=== PATIENT | female | born 1965 | race Caucasian/White ===

== ENCOUNTER 2020-08-11 05:17 | Day surgery (SDC) | payer OTHER ==
[2020-08-10 10:36] VITALS: BMI 36.2
--- OUTSIDE RECORDS SUMMARY | 2020-08-11 05:26 | XMS ---
:1965 Author Organization [facility] Care Team Providers Name Role Phone Leni Meeks MD Unavailable Unavailable Yanna Meeks MD Unavailable Unavailable Yanna Meeks MD Unavailable Unavailable Yanna Meeks MD Unavailable Unavailable Yanna Meeks MD Unavailable Unavailable Yanna Meeks MD Unavailable Unavailable MD Divya Unavailable Unavailable Tellus Unavailable Unavailable Mihaleva Unavailable [email or web address] Mihaleva Unavailable [email or web address] Mihaleva Unavailable [email or web address] Mihaleva Unavailable [email or web address] RYLAND GIORDANO Unavailable RYLAND GIORDANO Unavailable Ruvo Unavailable Unavailable Uriel Unavailable Unavailable Kaniefski Unavailable Unavailable DONAL, PROJECT SCHEDULER Unavailable ODNAL, PROJECT SCHEDULER Unavailable DONAL, PROJECT SCHEDULER Unavailable DONAL, PROJECT SCHEDULER Unavailable DONAL, PROJECT SCHEDULER Unavailable DONAL, PROJECT SCHEDULER Unavailable MD Ryan Unavailable Unavailable Sicular Unavailable Unavailable Latoya, MD Unavailable Unavailable Latoya, MD Unavailable Unavailable Latoya, MD Unavailable Unavailable Latoya, MD Unavailable Unavailable Latoya, MD Unavailable Unavailable Latoya, MD Unavailable Unavailable Latoya, MD Unavailable Unavailable Latoya, MD Unavailable Unavailable Latoya, MD Unavailable Unavailable Latoya, MD Unavailable Unavailable Latoya, MD Unavailable Unavailable Latoya, MD Unavailable Unavailable Latoya, MD Unavailable Unavailable Latoya, MD Unavailable Unavailable Latoya, MD Unavailable Unavailable Re-disclosure Warning The records that you are about to access may contain information from federally- assisted alcohol or drug abuse programs. If such information is present, then the following federally mandated warning applies: This information has been disclosed to you from records protected by federal confidentiality rules (42 CFR part 2). The federal rules prohibit you from making any further disclosure of this information unless further disclosure is expressly permitted by the written consent of the person to whom it pertains or as otherwise permitted by 42 CFR part 2. A general authorization for the release of medical or other information is NOT sufficient for this purpose. The Federal rules restrict any use of the information to criminally investigate or prosecute any alcohol or drug abuse patient.The records that you are about to access may contain highly sensitive health information, the redisclosure of which is protected by Article 27-F of the [facility] Public Health law. If you continue you may haveaccess to information: Regarding HIV / AIDS; Provided by facilities licensed or operated by the [facility] Office of Mental Health; or Provided by the [facility] Office for People With Developmental Disabilities. If such information is present, then the following [facility] mandated warning applies: This information has been disclosed to you from confidential records which are protected by state law. State law prohibits you from making any further disclosure of this information without the specific written consent of the person to whom it pertains, or as otherwise permitted by law. Any unauthorized further disclosure in violation of state law may result in a fine or long term sentence or both. A general authorization for the release of medical or other information is NOT sufficient authorization for further disclosure. Allergies and Adverse Reactions Type Description Substance Reaction Status Data Source(s ) Allergy to No Known Allergies No known MIS SMITH ([facility] substance allergies [facility] [place] ) Allergy to No Known Allergies No known GREENW AY ([facility] substance allergies [facility] ([facility] ) Encounters Encounter Providers Location Date Indications Data Source(s ) Outpatient Attender: MD GURMEET LR 09/15/2019 [facility] [place] 02:29:00 PM Hosp[facility] l EDT - 09/15/2019 11:59:00 PM EDT Patient discharged. S Attender: MD Caden MontesAMB SURG 08/23[facility] 11:15:00 AM EDT Patient discharged. Outpatient Attender: MD GURMEET LR 08/18/2019 02:38:00 [facility] PM EDT - 08/18/2019 Hospital 11:59:00 PM EDT Patient discharged. S Attender: MD Major LENZ MV 07/27/2019 03:51:05 [facility] - 08[facility]/2019 [facility] 09:55:00 AM EDT Patient discharged. Outpatient Attender: MD GURMEET LR 07/21/2019 02:56:00 [facility] PM EDT - 07/21/2019 Hospital 11:59:00 PM EDT Patient discharged. Outpatient Attender: MD GURMEET LR 07/13/2019 03:31:06 [facility] PM EDT - 07/14/2019 Hospital 11:59:00 PM EDT Patient discharged. Outpatient Attender: MD Major LINARESV 07/08/2019 03:24:00 [facility] PM EDT - 07/08/2019 Hospi hector 11:59:00 PM EDT Patient discharged. Outpatient Attender: Marybeth LR 07/08/2019 01:53:00 PM [facility] MD EDT - 07/08/2019 Hospita l 11:59:00 PM EDT Admission cancelled. Disregard status an d admitted date. Emergency Attender: Isaias RAND 07/05/2019 RECTAL BLEEDING, Yamileth Trevino 12:18:00 PM EDT - BACK PAIN [facility] 07/05/2019 03:26:00 PM EDT RECTAL BLEEDING, BACK PAIN Patient discharged. Outpatient Attender: Marybeth Bahena-MED CL 06/25/2019 03:13:00 PM [facility] MD EDT - 06/25/2019 Hospita l 11:59:00 PM EDT Patient discharged. Outpatient Attender: Leni Bahena-OBGYN CL 06/14/2019 03:13:00 [facility] - 06/14/2019 Hosp ital 11:59:00 PM EDT Patient discharged. Outpatient -GI CL 05/14/2019 11:39:35 AM EDT [facility] Admission cancelled. Disregard status an d admitted date. Emergency Attender: Terrence Bahena-EMERG 05/05/2019 R FOOT SWOLLEN [facility] 05:51:00 PM EDT - [facility] 05/05/2019 08:30:00 PM EDT R FOOT SWOLLEN Patient discharged. Outpatient Attender: Marybeth Bahena-RAD DEPT 04/01/2019 HUSAM Klein MD 03:31:00 PM EDT [facility] Outpatient Attender: Marybeth Bahena-MED CL 03/26/2019 HUSAM Klein MD 03:30:00 PM EDT [facility] 03/26/2019 11:59:00 PM EDT Emergency Attender: Brannon 5T-EMERG 03/21/2019 LOWER BACK [facility] - Kashif Soni 12:24:00 PM EDT - MUSCLE SPASM [facility] 03/21/2019 SINCE FRIDAY 01:28:00 PM EDT LOWER BACK MUSCLE SPASM SINCE FRIDAY Outpatient Attender: Marybeth Bahena-LAB 03/20/2019 HUSAM Klein MD 12:31:00 PM EDT - [facility] 03/20/2019 11:59:00 PM EDT Outpatient Attender: Marybeth Bahena-MED CL 03/12/2019 HUSAM Klein MD 03:21:00 PM EDT [facility] 03/12/2019 11:59:00 PM EDT Emergency Attender: Matilde 5T-EMERG 01/07/2019 FLU-LIKE SHAUNAS - Mo unt Sicular 05:35:00 PM EST - SYMPTOMS [facility] 01/07/2019 09:42:00 PM EST FLU-LIKE SYMPTOMS Outpatient<td Attender: 12/18/2018 LUQU[place]O ID="encounterTypeDescriptionID0">*OUTREACH*</td><td>BLANCA lui 11:07:00 AM ([facility] COLLIN GIORDANO</td><td> Collin EST - [facility] </td><td>12/18/2018</td><td></td> 12/18/2018 Health 11:59:00 PM Center) EST Outpatient<td ID="encounterTypeDescriptionID1">*No Attender: 12/10/2018 [place] Show*</td><td>JIGNESH MARCELINO MD</td><td>[place] JIGNESH o 03:16:00 PM ([facility]</td><td>12/10/2018</td><td></td> RYLAND GIORDANO u EST - [facility] n 12/10/2018 Health t 11:59:00 PM Center) V EST e r n o n N e i g h b o r h o o d H e a l t h C e n t e r Outpatient<td ID="encounterTypeDescriptionID0">COMPLETE Attender: 12/04/2018 [place] PHYSICAL EXAM</td><td>BLANCA POLANCO MD</td><td>[facility] Fernanda [facility] o 09:15:00 AM ([facility] u [facility]</td><td>12/04/2018</td><td></td> n [facility] Health t 11:59:00 PM Center) V EST e r n o n N e i g h b o r h o o d H e a l t h C e n t e r Emergency Attender: 5 02/04/2018 S S - [facility] Senior T 01:57:00 AM Will Delgado EDT - O Hospital E 02/04/2018 [facility] 02:07:00 PM A E EDT C R H G P A I N STOMACH PAIN Outpatient<td Attender: [place] 07/16/2013 Knee YANDEL ID="encounterTypeDescriptionID1">WALKINS</td><td>BETSY MEYER [facility] 09:53:00 AM SprainKnee ([facility] DONAL, PROJECT SCHEDULER</td><td>Health System Health PEN DERGAST, [facility] EDT - Sprain [facility]</td><td>07/16/2013</td><td><content PROJECT SCHEDULER 06/25 Health ID="encounterDiagnosisID1-0">Knee Sprain</content></td> 10:47:02 AM [place]) EDT Knee Sprain Knee Sprain Immunizations Vaccine Date Status Description Data Source(s) TB Skin 12/04/2018 completed PPD 1 12/04/2018 Left Active Arin [facility] test is 12:14:00 PM TB Lower (Administered) Nei [facility] ([place] not EST TST Forearm [facility] vaccine. [facility]) Tdap 03/30/2016 completed Tdap On: 30-Mar-2016 [facility] 12:00:00 AM EDT Lot #: [id number], [place] Medications Medication Brand Start Product Dose Route Administrative Pharmacy [facility] Indications Reaction Description Data Name Date Form Instructions Instructions Source(s) medroxyprog medrox [id number] complet Prov era [facility] esterone [id number] {tab( ed Health acetate 10 STERon 04:08: s)} Syste m MG Oral e 10 59 PM Tablet mg EDT medroxyPROG oral ESTERone 10 tablet mg oral tablet Do not take this drug if you are pregnan t.It is very important that you take or use this exactly as directed. Do not skip d oses or discontinue unless directed by your doctor.Take with food or milk. medroxyprogesterone medroxyPROGESTERone 07/14/2019 2 [id number] completed Provera [facility] acetate 10 MG Oral 10 mg oral tablet 03:20:38 PM {tab(s)} Health Tablet EDT System medroxyPROGESTERone 10 mg oral tablet Do not take this drug if you are pregnan t.It is very important that you take or use this exactly as directed. Do not skip d oses or discontinue unless directed by your doctor.Take with food or milk. POLYETHYLENE GoLYTELY oral 07/08/2019 4000 [id number] completed GoLYTELY [facility] GLYCOL 3350 59 powder for 04:34:23 PM mL Health MG/ML / reconstitution EDT Sy stem Potassium Chloride 0.01 MEQ/ML / Sodium Bicarbonate 0.02 MEQ/ML / Sodium Chloride 0.025 MEQ/ML / sodium sulfate 0.04 MEQ/ML Oral Solution GoLYTELY oral powder for reconstitution medroxyprogeste Provera 10 mg 07/08/2019 T 2 ORAL completed [facility] negro acetate 10 oral tablet 03:39:58 PM A {tab( Health MG Oral Tablet EDT B s)} Syste m [Provera] L Provera 10 mg E oral tablet T Do not take this drug if you are pregnan t.It is very important that you take or use this exactly as directed. Do not skip d oses or discontinue unless directed by your doctor.Take with food or milk. medroxyprogesterone Provera 07/08/2019 TABLET 2 ORAL completed [facility] acetate 10 MG Oral 10 mg 03:39:58 PM {tab(s)} Health Tablet [Provera] oral EDT Sys tem Provera 10 mg oral tablet tablet Do not take this drug if you are pregnan t.It is very important that you take or use this exactly as directed. Do not skip d oses or discontinue unless directed by your doctor.Take with food or milk. medroxyprogesterone Provera 07/08/2019 2 [id number] active Provera [facility] acetate 10 MG Oral 10 mg 03:39:58 PM {tab(s)} Health Tablet [Provera] oral EDT Sys tem Provera 10 mg oral tablet tablet Do not take this drug if you are pregnan t.It is very important that you take or use this exactly as directed. Do not skip d oses or discontinue unless directed by your doctor.Take with food or milk. Cyclobenzaprine cyclobenzaprine 07/08/2019 1 [id number] completed Cyclobenzaprine [facility] hydrochloride 10 10 mg oral 03:37:40 PM {tab(s)} Hydrochloride Health MG Oral Tablet tablet EDT Sys tem cyclobenzaprine 10 mg oral tablet 8 HR Tylenol 8 Hour 07/08/2019 2 [id number] completed Tylenol 8 Hour [facility] Acetaminophen 650 mg oral 03:36:59 PM {tab(s)} [facility] 650 MG Extended tablet, extended EDT System Release Oral release Tablet [Tylenol] Tylenol 8 Hour 650 mg oral tablet, extended release This product contains acetaminophen. Do not use with any other product containing acetaminophen to prevent possible liver damage. medroxyprogesterone Provera 07/05/2019 TABLET 1 ORAL completed [facility] acetate 10 MG Oral 10 mg 02:54:42 PM {tab(s)} Health Tablet [Provera] oral EDT Sys tem Provera 10 mg oral tablet tablet Do not take this drug if you are pregnan t.It is very important that you take or use this exactly as directed. Do not skip d oses or discontinue unless directed by your doctor.Take with food or milk. medroxyprogesterone Provera 06/14/2019 TABLET 2 ORAL completed [facility] acetate 10 MG Oral 10 mg 04:02:27 PM {tab(s)} Health Tablet [Provera] oral EDT Sys tem Provera 10 mg oral tablet tablet Do not take this drug if you are pregnan t.It is very important that you take or use this exactly as directed. Do not skip d oses or discontinue unless directed by your doctor.Take with food or milk. Naproxen naproxen 03/21/2019 1 {tab(s)} [id number] completed Naproxen [facility] 375 MG 375 mg 12:57:02 PM [facility] Delayed oral EDT Coated System Release delayed Oral release Tablet tablet naproxen 375 mg oral delayed release tablet Check with your doctor before becoming p regnant.It is very important that you take or use this exactly as directed. Do not sk ip doses or discontinue unless directed by your doctor.May cause drowsiness or dizz iness.Obtain medical advice before taking any non-prescription drugs as some may affec t the action of this medication.Swallow whole. Do not crush.Take with food or m ilk. Methocarbamol methocarbamol 03/21/2019 1 [id number] completed Methocarbamol [facility] 500 MG Oral 500 mg oral 12:56:01 PM {tab(s)} Health Tablet tablet EDT System methocarbamol 500 mg oral tablet May cause drowsiness. Alcohol may inten sify this effect. Use care when operating dangerous machinery. Naproxen Naprosyn 03/21/2019 1 [id number] aborted Naprosyn; 1 tab(s) orally every 12 hours, As Needed -PRN MUSCLE SPASM Ordered: 21-Mar-2019 Start: 21-Mar-2019 End: 25-Mar-2019 [facility] Naprosyn 12:53:02 PM {tab(s)} Quant ity: 10 BurrisPoly villalpando Status: Discontinued Health EDT Refills: 0 System Methocarbamol methocarbamol 03/21/2019 1 [id number] aborted Methocarbamol [facility] 500 MG Oral 500 mg oral 12:51:08 PM {tab(s)} Health Tablet tablet EDT System methocarbamol 500 mg oral tablet May cause drowsiness. Alcohol may inten sify this effect. Use care when operating dangerous machinery. benzonatate benzonatate 01/07/2019 1 [id number] completed Benzonatate [facility] 100 MG Oral 100 mg oral 09:29:46 PM {cap(s)} Health Capsule capsule EST System benzonatate 100 mg oral capsule May cause drowsiness. Alcohol may inten sify this effect. Use care when operating dangerous machinery.Swallow whole. Do n ot crush. Ibuprofen IBU 800 01/07/2019 1 {tab(s)} [id number] aborted IBU [facility] 800 MG Oral mg oral 09:29:31 PM Health Tablet [Ibu] tablet EST Syste m IBU 800 mg oral tablet Do not take this drug if you are pregnan t.It is very important that you take or use this exactly as directed. Do not skip d oses or discontinue unless directed by your doctor.May cause drowsiness or dizziness .Obtain medical advice before taking any non-prescription drugs as some may affec t the action of this medication.Take with food or milk. Oseltamivir oseltamivir 01/07/2019 1 [id number] completed Tamiflu [facility] 75 MG Oral 75 mg oral 09:29:11 PM {cap(s)} Health Capsule capsule EST System oseltamivir 75 mg oral capsule Check with your doctor before becoming p regnant.Finish all this medication unless otherwise directed by prescriber. Methocarbamol methocarbamol 09/21/2018 2 [id number] completed Methocarbamol [facility] 500 MG Oral 500 mg oral 11:02:22 PM {tab(s)} Health Tablet tablet EDT System methocarbamol 500 mg oral tablet May cause drowsiness. Alcohol may inten sify this effect. Use care when operating dangerous machinery. Naproxen naproxen 09/21/2018 1 {tab(s)} [id number] completed Naproxen [facility] 500 MG 500 mg 11:02:02 PM Heal th Oral oral EDT System Tablet tablet naproxen 500 mg oral tablet Check with your doctor before becoming p regnant.May cause drowsiness or dizziness.Obtain medical advice before t aking any non-prescription drugs as some may affect the action of this medication.Sam e with food or milk. Metoclopramide metoclopramide 02/04/2018 1 [id number] complet ed Metoclopramide [facility] 10 MG Oral 10 mg oral 01:40:22 PM {tab(s)} Hydrochloride Health Tablet tablet EDT System metoclopramide 10 mg oral tablet It is very important that you take or us e this exactly as directed. Do not skip doses or discontinue unless directed by your doctor.May cause drowsiness. Alcohol may intensify this effect. Use care whe n operating dangerous machinery.Take medication on an empty stomach 1 hour be fore or 2 to 3 hours after a meal unless otherwise directed by your doctor. Ranitidine raNITIdine 02/04/2018 1 [id number] completed Ranitidine [facility] 150 MG Oral 150 mg oral 01:39:25 PM {tab(s)} Hydrochloride Health Tablet tablet EDT System raNITIdine 150 mg oral tablet It is very important that you take or us e this exactly as directed. Do not skip doses or discontinue unless directed by your doctor.Obtain medical advice before taking any non-prescription drugs as jhoana e may affect the action of this medication. Amoxicillin 875 MG / amoxicillin-clavulanate 10/29/2016 1 [id number] completed Amoxicillin-Clavulanate [facility] Clavulanate 125 MG Oral 875 mg-125 mg oral 07:02:38 PM {cap(s)} Health Tablet tablet EST System amoxicillin-clavulanate 875 mg-125 mg oral tablet Finish all this medication unless otherw ise directed by prescriber.Take with food or milk. Ciprofloxacin 3 Ciprodex 10/29/2016 4 [id number] completed Ciprodex [facility] MG/ML / 0.3%-0.1% 07:01:49 PM {gtt} Health Dexamethasone 1 otic EST Syst em MG/ML Otic suspension Suspension [Ciprodex] Ciprodex 0.3%-0.1% otic suspension For the ear.Shake well before use. Cyclobenzaprine cyclobenzaprine 09/17/2016 1 [id number] completed Cyclobenzaprine [facility] hydrochloride 10 10 mg oral 06:13:55 PM {tab(s)} Hydrochloride Health MG Oral Tablet tablet EDT Sys tem cyclobenzaprine 10 mg oral tablet May cause drowsiness. Alcohol may inten sify this effect. Use care when operating dangerous machinery.Obtain medical advic e before taking any non-prescription drugs as some may affect the action of this medic ation. Ibuprofen IBU 600 09/17/2016 1 {tab(s)} [id number] completed IBU [facility] 600 MG Oral mg oral 06:13:32 PM Health Tablet [Ibu] tablet EDT Syste m IBU 600 mg oral tablet Do not take this drug if you are pregnan t.It is very important that you take or use this exactly as directed. Do not skip d oses or discontinue unless directed by your doctor.May cause drowsiness or dizziness .Obtain medical advice before taking any non-prescription drugs as some may affec t the action of this medication.Take with food or milk. POLYETHYLENE [id number] oral 09/17/2016 238 [id number] completed [id number] [facility] GLYCOL 3350 142 powder for 02:18:00 PM g Health MG/ML Oral reconstitution EDT System Solution [id number] oral powder for reconstitution Dilute this medication with liquid befor e administration.It is very important that you take or use this exactly as directed . Do not skip doses or discontinue unless directed by your doctor. Naproxen naproxen 07/12/2016 1 {tab(s)} [id number] completed Naproxen [facility] 250 MG 250 mg 02:44:20 PM Heal th Oral oral EDT System Tablet tablet naproxen 250 mg oral tablet Check with your doctor before becoming p regnant.It is very important that you take or use this exactly as directed. Do not sk ip doses or discontinue unless directed by your doctor.May cause drowsiness or dizz iness.Obtain medical advice before taking any non-prescription drugs as some may affec t the action of this medication.Take with food or milk. Ibuprofen IBU 600 06/19/2016 1 {tab(s)} [id number] completed IBU [facility] 600 MG Oral mg oral 07:28:10 PM Health Tablet [Ibu] tablet EDT Syste m IBU 600 mg oral tablet Do not take this drug if you are pregnan t.It is very important that you take or use this exactly as directed. Do not skip d oses or discontinue unless directed by your doctor.May cause drowsiness or dizziness .Obtain medical advice before taking any non-prescription drugs as some may affec t the action of this medication.Take with food or milk. Amoxicillin 500 MG / amoxicillin-clavulanate 06/19/2016 1 [id number] completed Amoxicillin-Clavulanate [facility] Clavulanate 125 MG Oral 500 mg-125 mg oral 07:26:08 PM {tab(s)} Health Tablet tablet EDT System amoxicillin-clavulanate 500 mg-125 mg oral tablet Finish all this medication unless otherw ise directed by prescriber.Take with food or milk. Sulfamethoxazole SMZ-TMP 03/30/2016 1 [id number] complet ed SMZ-TMP DS 800 mg- 160 mg oral tablet; 1 tab(s) orally 2 times a day Ordered: 30-Mar-2016 Star t: 30-Mar-2016 End: 09-Apr-2016 [facility] 800 MG / DS 800 04:53:12 PM {tab(s)} Jason ntity: 20 [place] Winn Status: No Longer Active Health Trimethoprim 160 mg-160 EDT Refill s: 0 Generic Substitution Allowed System MG Oral Tablet mg oral SMZ-TMP DS 800 tablet mg-160 mg oral tablet Avoid prolonged or excessive exposure to direct and/or artificial sunlight while taking this medication.Finish all this m edication unless otherwise directed by prescriber.Medication should be taken wi th plenty of water. Cephalexin cephalexin 03/30/2016 1 [id number] completed Cephalexin [facility] 500 MG Oral 500 mg oral 04:52:45 PM {cap(s)} Monohydrate Health Capsule capsule EDT System cephalexin 500 mg oral capsule Finish all this medication unless otherw ise directed by prescriber. Loperamide loperamide 03/12/2016 1 [id number] completed Imodium [facility] Hydrochloride 2 mg oral 04:08:18 PM {tab(s)} A-D Health 2 MG Oral tablet EDT System Tablet loperamide 2 mg oral tablet It is very important that you take or us e this exactly as directed. Do not skip doses or discontinue unless directed by your doctor.May cause drowsiness. Alcohol may intensify this effect. Use care whe n operating dangerous machinery.Obtain medical advice before taking any non-pre scription drugs as some may affect the action of this medication. Microgestin [id number] 03/05/2016 1 [id number] completed Microgestin [facility] oral 02:47:36 PM {tab(s)} 04/22 Health tablet EDT System Do not take this drug if you are pregnan t.It is very important that you take or use this exactly as directed. Do not skip d oses or discontinue unless directed by your doctor.Other drugs may decrease the effe ct of this prescription. Contact your physician for further advice. moxifloxacin moxifloxacin 04/02/2015 1 [id number] completed Avelox [facility] 400 MG Oral 400 mg oral 12:55:22 PM {tab(s)} Health Tablet tablet EDT System moxifloxacin 400 mg oral tablet Do not take dairy products, antacids, or iron preparations within one hour of this medication.Finish all this medication un less otherwise directed by prescriber.May cause drowsiness or dizziness.Obtain med ical advice before taking any non-prescription drugs as some may affec t the action of this medication. Acetaminophen 325 MG / acetaminophen-oxyCODONE 04/02/2015 1 C 13383 completed Acetaminophen-OxyCODONE [facility] Oxycodone Hydrochloride 325 mg-5 mg oral tablet 12:00:00 AM {tab(s)} Hydrochloride Health 5 MG Oral Tablet EDT Sys tem acetaminophen-oxyCODONE 325 mg-5 mg oral tablet Ciprofloxacin 500 MG ciprofloxacin 500 mg 01/14/2015 1 [id number] completed Ciprofloxacin [facility] Oral Tablet oral tablet 01:16:00 PM {tab(s)} Hydrochloride Health ciprofloxacin 500 mg EST System oral tablet POLYETHYLENE GLYCOL 3350 polyethylene glycol 3350 01/14/2015 400 0 mL [id number] completed Colyte with Flavor Packs [facility] 59 MG/ML / Potassium with electrolytes oral 12:00:00 AM Health Chloride 0.01 MEQ/ML / powder for EST System Sodium Bicarbonate 0.02 reconstitution MEQ/ML / Sodium Chloride 0.025 MEQ/ML / sodium sulfate 0.04 MEQ/ML Oral Solution polyethylene glycol 3350 with electrolytes oral powder for reconstitution Acetaminophen 325 MG / acetaminophen-oxyCODONE 06/28/2014 1 C 07389 completed Acetaminophen-OxyCODONE [facility] Oxycodone Hydrochloride 325 mg-5 mg oral tablet 09:13:18 PM {tab(s)} Hydrochloride Health 5 MG Oral Tablet EDT Sys tem acetaminophen-oxyCODONE 325 mg-5 mg oral tablet Caution federal law prohibits the transf er of this drug to any person other than the person for whom it was prescribed.May ca use drowsiness. Alcohol may intensify this effect. Use care when operating [employer] machinery.This prescription cannot be refilled.This product contains acetamino phen. Do not use with any other product containing acetaminophen to prevent poss ible liver damage.Using more of this medication than prescribed may cause ser ious breathing problems. Naproxen naproxen 06/26/2014 1 [id number] completed Naproxen [facility] 500 MG Oral 500 mg 10:09:55 PM {tab(s)} Health Tablet tablet EDT System naproxen 500 mg tablet Cyclobenzap cyclobenzap 06/26/2014 1 [id number] completed Cyclobenza [facility] rine rine 10 mg 10:09:47 PM {tab(s)} [facility] hydrochlori oral tablet EDT Hydroc hlor System de 10 MG solo Oral Tablet cyclobenzap rine 10 mg oral tablet May cause drowsiness. Alcohol may inten sify this effect. Use care when operating dangerous machinery.Obtain medical advic e before taking any non-prescription drugs as some may affect the action of this medic ation. Naproxen naproxen 07/05/2013 1 {tab(s)} U68394 completed Naproxen [facility] 500 MG 500 mg 10:18:22 PM [facility]al th Oral tablet EDT System Tablet naproxen 500 mg tablet Motrin 0 L84010 completed Motrin; or ally Ordered: 26-Jun-2014 Status: No Longer Active [facility] Quantity: 0 Fantrotter Refills: 0 System Ondansetron 4 Zofran 1 R17122 completed Zofran ODT 4 mg oral tablet, disintegrating; 1 tab(s) orally 3 times a day Ordered: 11-Aug-2015 Status: No Longer Active [facility] MG ODT 4 {t Quantity: 0 [facility] Dis[facility] mg oral ab Refills: 0 System g Oral Tablet tablet, (s [Zofran] disinte )} Zofran ODT 4 grating mg oral tablet, disintegratin g Multivitamin Multiple 1 {tab(s)} Z84422 active Multivitamin [facility] preparation Vitamins Heal th Multiple oral System Vitamins oral tablet tablet calcium 0 V86903 active calc ium carbonate-magnesium hydroxide 550 mg-125 mg oral capsule; orally once a day Ordered: 11-Aug-2019 [facility] carbonate-magnesium Quant ity: 0 [employer] [facility] hydroxide 550 mg-125 Refi lls: 0 System mg oral capsule 12 HR Oxycodone O 0 Q55847 complet OxyCONTIN 10 mg oral tablet, extended release; orally Ordered: 02-Feb-2015 Status: No Longer Active [facility] Hydrochloride 10 MG x ed Quant ity: 0 [employer] Extended Release y Refills: 0 System Oral Tablet C [Oxycontin] O OxyCONTIN 10 mg oral N tablet, extended T release I N 1 0 m g o r a l t a b l e t , e x t e n d e d r e l e a s e No Medications drug or active No Me dications YANDEL ([place] Taken medication Taken [facility]) Aspirin 81 MG aspirin 81 mg 1 C38 active Halfprin [facility] Oral Tablet oral tablet {tab 288 H ealth System aspirin 81 mg (s)} oral tablet Aspirin 81 MG Aspir-Low 81 1 C38 aborted Aspir-Low [facility] Delayed Release mg oral {tab 288 H ealth System Oral Tablet delayed (s)} [Aspir-Low] release tablet Aspir-Low 81 mg oral delayed release tablet No Medications drug or active No Me dications YANDEL ([place] Taken medication Taken [facility]) Insurance Providers Payer Policy type / Policy ID Covered Covered republican's Policy Plan name Coverage type republican ID relationship to Paredes Information paredes SHRUTI [id number] CIGNA PPO Commercial [id number] 1 [id number] Cigna PPO Commercial [id number] Cigna PPO Commercial [id number] 1 [facility] [id number] Blue Blue Cross [id number] Cross PPO Self Pay Self Pay 1 Cigna PPO Commercial [id number] 1 [id number] Cigna PPO Commercial [id number] 1 [id number] CIGNA Commercial [id number] 1 [id number] CIGNA PPO Commercial [id number] Problems, Conditions, and Diagnoses Code Display Name Description Problem Type Effective Data Sour ce(s) Dates [id number] Leukocytosis Leukocytosis Problem 12/18/2018 YANDEL ( [place] (disorder) 12:00:00 AM [facility]) [id number] Hematuria syndrome Hematuria Problem 12/18/2018 APALACHICOLAIrving SMITH ([place] (disorder) 12:00:00 AM [facility]) [id number] Obesity (disorder) Obesity Problem 12/04/2018 APALACHICOLAIrving AY ([place] 12:00:00 AM [facility]) [id number] Malignant tumor of Colon Cancer Problem 12/04/2018 MIHIRSimon SHINLUIS ([facility] large intestine 12:00:00 AM [place] (disorder) [facility]) [id number] Obesity (disorder) Obesity Problem 12/04/2018 [facility] AY ([place] 12:00:00 AM [facility]) [id number] Malignant tumor of Colon Cancer Problem 12/04/2018 GREE NWLUIS ([facility] large intestine 12:00:00 AM [place] (disorder) [facility]) H66.91 Otitis of right Otitis of right 41923-7 10/29/2016 [facility] ear ear 12:00:00 AM Health System EST C18.9 Colon cancer Colon cancer 47204-6 03/30/2016 [facility] 12:00:00 AM [facility] System EDT Z98.51 [place] [address]-5 03/30/2016 [facility] bilateral ligation bilateral ligation 12:00:00 AM Health System of fallopian tubes of fallopian tubes EDT 558.9 Acute Acute 77296-7 01/12/2015 [facility] gastroenteritis gastroenteritis 12:00:00 AM [facility] System EST Z98.51 Tubal ligation History of Diagnosis 10/15/2019 [facility] - Moun t status bilateral ligation 03:05:33 PM [facility] of fallopian tubes EST H66.91 Otitis media, Otitis of right Diagnosis 10/15/2019 S - [place] unspecified, right ear 03:05:33 PM [facility] ear EST C18.9 Malignant neoplasm Colon cancer Diagnosis 10/15/2019 [facility] [place] [facility], [facility] Z87.898 Personal history No post-op Diagnosis 09/15/2019 S - [place] of other specified complications 02:29:00 PM [facility] conditions EDT Z85.038 Personal history History of other Diagnosis 09/02/2019 [place] - [place] of other malignant malignant neoplasm 06:58:00 AM [facility] neoplasm of large of large intestine EDT intestine 30226 Hysteroscopy Hysteroscopy Diagnosis 09/02/2019 [facility] - Moun t 06:58:00 AM [facility] EDT N92.0 Excessive and Excessive and Diagnosis 09/02/2019 S - [place] [facility] frequent frequent 06:58:00 AM [facility] menstruation with menstruation EDT regular cycle N85.00 Endometrial Endometrial Diagnosis 09/02/2019 [facility] - [facility] hyperplasia, hyperplasia 06:58:00 AM [facility] pital unspecified EDT K64.9 Unspecified Hemorrhoids Diagnosis 08/11/2019 [facility] - [facility] hemorrhoids 06:40:00 AM [facility] EDT K63.5 Polyp of colon Polyp of colon Diagnosis 08/11/2019 [facility] - [place] 06:40:00 AM [facility] al EDT K57.30 Diverticulosis of Diverticulosis of Diagnosis 08/11/2019 S - [facility] large intestine large intestine 06:40:00 AM [facility] without without EDT perforation or perforation or abscess without abscess without bleeding bleeding 84528 Colonoscopy Colonoscopy Diagnosis 08/11/2019 [facility] - [place] 06:40:[facility] N95.0 Postmenopausal Postmenopausal Diagnosis 07/14/2019 S - [facility] bleeding bleeding 02:39:00 PM [facility] al EDT RECTAL BLEEDING, RECTAL BLEEDING, Diagnosis 07/05/2019 S - [facility] BACK PAIN BACK PAIN 12:18:00 PM [facility] al EDT N93.8 Other specified Dysfunctional Diagnosis 07/05/2019 [facility] - [facility] abnormal uterine uterine bleeding 12:18:00 PM [facility] and vaginal EDT bleeding D72.829 Elevated white Leukocytosis Diagnosis 07/05/2019 [facility] - [place] unt blood cell count, 12:18:00 PM [facility] unspecified EDT N93.9 Abnormal uterine Vaginal bleeding Diagnosis 07/05/2019 [place] - [place] and vaginal 12:18:00 PM [facility] bleeding, EDT unspecified W22.8XXA Striking against Striking against Diagnosis 05/05/2019 [place] - [place] or struck by other or struck by other 05:51:00 PM [facility] objects, initial objects, initial EDT encounter encounter R FOOT SWOLLEN R FOOT SWOLLEN Diagnosis 05/05/2019 S - [place] 05:51:00 PM [facility] EDT Y92.830 [address] park as the Public park as Diagnosis 05/05/2019 S - [facility] place of place of 05:51:00 PM [facility] occurrence of the occurrence of EDT external cause external cause Y99.8 Other external Other external Diagnosis 05/05/2019 [facility] cause status cause of injury or 05:51:00 PM [facility] poisoning EDT S90.31XA Contusion of right Contusion of right Diagnosis 9 S - [place] foot, initial foot 05:51:00 PM [facility] pital encounter EDT Y93.89 Activity, other Other activity Diagnosis 05/05/2019 [facility] - [facility] specified 05:51:00 PM [facility] al EDT E11.9 Type 2 diabetes Diabetes mellitus Diagnosis 03/26/2019 S - [facility] mellitus without 03:30:00 PM [facility] complications EDT M62.830 Muscle spasm of Spasm of back Diagnosis 03/21/2019 [facility] - [facility] back muscles 12:24:00 PM [facility] al EDT LOWER BACK MUSCLE LOWER BACK MUSCLE Diagnosis 03/21/2019 [facility] - [facility] SPASM SINCE SPASM SINCE 12:24:00 PM [facility] Friday EDT M54.9 Dorsalgia, Back pain Diagnosis 03/21/2019 [place] - [place] unspecified 12:24:00 PM Health System hector EDT Z00.01 Encounter for Encounter for Diagnosis 03/20/2019 S - [place] general adult general adult 12:00:00 AM [facility] medical medical EDT examination with examination with abnormal findings abnormal findings Z00.00 Encounter for Adult general Diagnosis 03/12/2019 [facility] - [facility] general adult medical 03:21:00 PM [facility] pital medical examination EDT examination without abnormal findings Z11.3 Encounter for Encntr screen for Diagnosis 01/22/2019 JAM LECHUGA ([facility] screening for infections w sexl 04:01:47 PM [facility] infections with a mode of transmiss EST [facility]) sexual mode of transmission M79.18 Myalgia, other Myalgia, other Diagnosis 01/07/2019 [facility] site site 05:35:00 PM [facility] EST J10.1 Influenza due to Influenza A Diagnosis 01/07/2019 [facility] ount other identified 05:35:00 PM [facility] influenza virus EST with other respiratory manifestations FLU-LIKE SYMPTOMS FLU-LIKE SYMPTOMS Diagnosis 01/07/2019 [facility] - Mount 05:35:00 PM [facility] EST R50.9 Fever, unspecified Fever Diagnosis 01/07/2019 [facility] - [facility] 05:35:00 PM [facility] EST R05 Cough Cough Diagnosis 01/07/2019 [facility] - [facility] 05:35:00 PM [facility] EST J02.9 Acute pharyngitis, Acute pharyngitis Diagnosis 01/07/2019 [facility] unspecified 05:35:00 PM [facility] EST STOMACH PAIN STOMACH PAIN Diagnosis 02/04/2018 [facility] - Moun t 01:57:00 AM [facility] EDT K29.00 Acute gastritis Acute gastritis Diagnosis 02/04/2018 [facility] without bleeding without 01:57:00 AM [facility] hemorrhage, EDT unspecified gastritis type Surgeries/Procedures Procedure Description Date Indications Data Source(s) Electrocardiographic [facility] procedure (procedure) 9 System 09:49:00 AM EDT - 9 09:49:00 AM EDT Venipuncture [facility] 9 System 09:47:33 AM EDT - 9 11:00:08 AM EDT Chlamydia [facility] Trachomatis/Neisseria 9 System Gonorrhea RNA,TMA 03:24:00 PM EDT - 9 03:24:00 PM EDT Cytology [facility] 9 System 03:24:00 PM EDT - 9 03:24:00 PM EDT XR Foot AP + Lateral + [facility] Oblique-Right XR Foot AP + 9 S ystem Lateral + Oblique-Right 07:29:00 PM EDT - 9 07:29:00 PM EDT Urine Test POCT [facility] 9 System 07:13:45 PM EDT - 9 07:38:35 PM EDT Venipuncture [facility] 9 System 01:18:13 PM EDT - 9 03:00:06 PM EDT MV HbA1c [place] [address] System 12:55:00 PM EDT - 9 12:55:00 PM EDT Carcinoembryonic Antigen Mon [place] [address] System 11:55:00 AM EDT - 9 11:55:00 AM EDT Quantiferon-TB Gold [place] [address] System 11:55:00 AM EDT - 9 11:55:00 AM EDT Past medical history Past medical history [facility] Reports hx for colon Reports hx for colon 9 [place] cancer no reports no cancer no reports no 12:00:00 Neighborhood records no colonoscopy records no AM EST [facility]) reports no oncloogy report colonoscopy reports ~NO any prior records no oncloogy report ~REports last colonoscopy ~NO any prior records in 2015 no records ~REports last ~reports his for genetic colonoscopy in 2016 tests for colon cancer no records ~reports done in the past ~Tdap in his for genetic tests 2014 at [facility] reported for colon cancer done by pt when stepping on a in the past ~Tdap in nail 2014 at [facility] reported by pt when stepping on a nail No cholecystectomy No cholecystectomy [address] ([place] [address] [place] 12:00:00 [facility]) No history of hysterectomy No history of YANDEL ([facility] hysterectomy 9 [place] 12:00:00 [facility]) No history of appendectomy No history of YANDEL ([facility] appendectomy 9 [place] 12:00:00 [facility]) History of surgery Colon History of surgery LUQUILLO ([facility] resection pt does not know Colon resection pt 9 [place] any hx of localization of does not know any hx 12:00:00 [facility] the cancer or what part of of localization of [facility]) the cancer had been the cancer or what removed ~C section x 1 part of the cancer had been removed ~C section x 1 VISUAL ACUITY SCREEN VISUAL ACUITY SCREEN YANDEL ([place] [address] [place] 12:00:00 [facility]) PPD PPD [place] ([place] [address] [place] 12:00:00 [facility]) Bmi documented outside BMI OUTSIDE NORMAL LUQUILLO ([facility] normal parameters, no RANGE - NO F/U PLAN 9 [place] follow-up plan documented, 12:00:00 N eighborhood no reason given [facility] r) XR Chest PA and Left [facility] Lateral XR Chest PA and 8 Syst em Left Lateral 10:13:00 PM EDT - 8 10:13:[address] [facility] procedure (procedure) 8 System 07:56:54 PM EDT - 8 08:12:[address] Ab[facility] IV and Oral Contrast & [address] Abdomen and 11:49:00 Pelvis with IV and Oral AM EDT - Contrast & Recons 8 11:49:[address] [facility] procedure (procedure) 7 System 03:02:53 PM EDT - 7 05:57:43 PM EDT Diagnostic [facility] abdomen, decubitus and 7 Syste m erect (procedure) 01:34:00 PM EDT - 7 01:34:00 PM EDT XR Chest Single AP view [facility] Chest Single AP view 7 System 01:34:00 PM EDT - 7 01:34:[address] [facility] procedure (procedure) 7 System 12:23:26 PM EDT - 7 01:17:00 PM EDT Venipuncture [facility] 6 System 07:45:45 AM EST - 6 09:00:08 AM EST US Doppler Venous, Lower [facility] Rezee Extremities-Bilateral US 6 Sys tem Doppler Venous, Lower 04:40:00 Extremities-Bilateral PM EDT - 6 04:40:00 PM EDT XR Humerus-Left XR [facility] Humerus-Left 6 System 06:47:00 PM EDT - 6 06:47:[address] [facility] procedure (procedure) 6 System 06:26:00 PM EDT - 6 07:15:16 PM EDT XR Hand 3 Views-Right XR Mon [facility] Rezee Hand 3 Views-Right 6 System 04:26:00 PM EDT - 6 04:26:00 PM EDT US Pelvis Transvaginal US [facility] Pelvis Transvaginal 6 System 10:36:00 AM EDT - 6 10:36:00 AM EDT US Pelvis Non-obstetric [facility] Pelvis Non-obstetric 6 System 10:36:00 AM EDT - 6 10:36:00 AM EDT Venipuncture [facility] 6 System 10:21:13 AM EDT - 6 12:00:06 PM EDT Venipuncture [facility] 5 System 07:15:07 AM EST - 5 09:00:04 AM EST Computerized axial [facility] tomography of thorax with 5 Sy stem contrast (procedure) 04:23:00 PM EDT - 5 04:23:00 PM EDT HCG Qualitative [facility] ealt 5 System 02:58:04 PM EDT - 5 03:19:00 PM EDT XR Chest Single AP view XR M [facility] Chest Single AP view 5 System 10:22:00 AM EDT - 5 10:22:00 AM EDT XR Chest Single AP view [facility] 5 System 10:12:00 AM EDT - 5 10:12:00 AM EDT XR Fluoroscopy < 1 Hr XR Mon [facility] Fluoroscopy < 1 Hr 5 System 08:57:00 AM EDT - 5 08:57:00 AM EDT XR Chest Single AP view XR M [facility] Chest Single AP view 5 System 10:47:00 AM EDT - 5 10:47:00 AM EDT XR Fluoroscopy < 1 Hr XR [facility] Fluoroscopy < 1 Hr 5 System 08:55:00 AM EDT - 5 08:55:00 AM EDT XR Fluoroscopy < 1 Hr [facility] 5 System 08:54:00 AM EDT - 5 08:54:[address] Abdomen and Pelvis with [facility] IV and Gastrografin 5 System Contrast & Recons CT 10:57:00 Abdomen and Pelvis with IV PM EDT - and Gastrografin Contrast & Recons 5 10:57:00 PM EDT Diagnostic radiography of [facility] abdomen, decubitus and 5 Syste m erect (procedure) 12:23:00 PM EDT - 5 12:23:[address] [facility] procedure (procedure) 5 System 02:58:52 PM EDT - 5 03:08:[address] Abdomen and Pelvis with M [facility] Rezee IV and Oral Contrast & 5 Syste m Recons Rad Image 02:48:00 PM EDT - 5 02:48:00 PM EDT Standard chest X-ray [facility] (procedure) 5 System 05:16:00 PM EST - 5 05:16:00 PM EST Standard chest X-ray [facility] (procedure) 5 System 05:39:00 AM EST - 5 05:39:[address] [facility] procedure (procedure) 5 System 03:18:57 AM EST - 5 04:02:[address] Abdomen and Pelvis with M [facility] Rezee Oral Contrast only & 5 System Recons Rad Image 01:04:00 AM EST - 5 01:04:00 AM EST Surgery Csection 1984 Surgery Csection YANDEL ([facility] 1984 3 [place] 12:00:[address] [facility]) No prior serious illness No prior serious YANDEL ([facility] illness 3 [place] 12:00:[address] [facility]) Results ID Date Data Source [id number] 08/07/2020 05:31:00 PM EDT [facility] Name Value Range Interpretation Description Data Sup porting Code Source(s) Document(s ) SARS [facility] coronavirus 2 RNA This lab was ordered by [facility] and reported by [facility]. ID Date Data Source [id number] 06/05/2020 12:00:00 AM EDT [facility] Name Value Range Interpretation Code Description Data Sierra rce(s) Supporting Document(s ) 2018-nCoV [facility] RNA XXX ISAK+probe- Imp This lab was ordered by [facility] and reported by [employer]. ID Date Data Source [id number] 05/23/2020 12:00:00 AM EDT [facility] Name Value Range Interpretation Code Description Data Sierra rce(s) Supporting Document(s ) 2018-nCoV [facility] RNA XXX ISAK+probe- Imp This lab was ordered by [facility] and reported by [employer] ID Date Data Source [id number] 05/10/2020 12:00:00 AM EDT [facility] Name Value Range Interpretation Code Description Data Sierra rce(s) Supporting Document(s ) nCoV [facility] RNA XXX ISAK+probe- Imp This lab was ordered by [facility] and reported by [employer] ID Date Data Source [id number] 05/09/2020 12:00:00 AM EDT [facility] Name Value Range Interpretation Code Description Data Sierra rce(s) Supporting Document(s ) nCoV [facility] RNA XXX ISAK+probe- Imp This lab was ordered by [facility] and reported by [employer] ID Date Data Source [id number] 04/27/2020 12:00:00 AM EDT [facility] Name Value Range Interpretation Code Description Data Sierra rce(s) Supporting Document(s ) nCoV [facility] RNA XXX ISAK+probe- Imp This lab was ordered by [facility] and reported by [employer] ID Date Data Source [id number] 04/25/2020 12:00:00 AM EDT [facility] Name Value Range Interpretation Code Description Data Sierra rce(s) Supporting Document(s ) nCoV [facility] RNA XXX ISAK+probe- Imp This lab was ordered by [facility] and reported by [employer] ID Date Data Source [id number] 04/20/2020 12:00:00 AM EDT [facility] Name Value Range Interpretation Code Description Data Sierra rce(s) Supporting Document(s ) nCoV [facility] RNA XXX ISAK+probe- Imp This lab was ordered by [facility] and reported by [employer] ID Date Data Source [id number] 04/18/2020 12:00:00 AM EDT [facility] Name Value Range Interpretation Code Description Data Sierra rce(s) Supporting Document(s ) nCoV [facility] RNA XXX ISAK+probe- Imp This lab was ordered by [facility] and reported by [employer] ID Date Data Source [id number] 04/14/2020 12:00:00 AM EDT [facility] Name Value Range Interpretation Code Description Data Sierra rce(s) Supporting Document(s ) 2018-nCoV [facility] RNA XXX ISAK+probe- Imp This lab was ordered by [facility] and reported by [employer] ID Date Data Source [id number] 04/12/2020 12:00:00 AM EDT [facility] Name Value Range Interpretation Code Description Data Sierra rce(s) Supporting Document(s ) 2018-nCoV [facility] RNA XXX ISAK+probe- Imp This lab was ordered by [facility] and reported by [employer]. ID Date Data Source [id number] 02/10/2015 06:00:00 AM EDT [facility] Name Value Range Interpretation Description Data Sup porting Code Source(s) Document(s ) Leukocytes 11.2 10 Above high normal WBC Count [facility] [#/volume] in Health Unspecified System specimen by Automated count Erythrocytes 4.04 10 Normal (applies RBC Count [facility] [#/volume] in to non-numeric Health Blood by results) System Automated count Hemoglobin 10.8 Below low normal Hemoglobin [facility] [Mass/volume] in {gm/dL} Health Blood System Hematocrit 33.9 % Below low normal Hematocrit [facility] [Volume Health Fraction] of System Blood Erythrocyte mean 83.9 fl Normal (applies MCV [facility] corpuscular to non-numeric Health volume [Entitic results) System volume] by Automated count Erythrocyte mean 26.7 pg Normal (applies MCH [facility] corpuscular to non-numeric Health hemoglobin results) System [Entitic mass] by Automated count Erythrocyte mean 31.9 Below low normal [facility] corpuscular {gm/dL} Health hemoglobin System concentration [Mass/volume] by Automated count Erythrocyte 16.1 % Above high normal RDW-CV [facility] distribution Health width [Entitic System volume] by Automated count Platelets 498 10 Above high normal Platelet [facility] [#/volume] in Count Health Plasma by System Automated count Platelet mean 10.8 fl Above high normal MPV [facility] volume [Entitic Health volume] in Blood System by Automated count Monocytes 0.6 10 Normal (applies Monocyte # [facility] [#/volume] in to non-numeric Health Blood by Manual results) System count Eosinophils 0.62 10 Above high normal Eosinophil # [facility] [#/volume] in Health Blood System Neutrophils 6.4 10 Normal (applies Neutrophil # [facility] [#/volume] in to non-numeric Health Body fluid results) System Basophils 0.04 10 Normal (applies Basophil # [facility] [#/volume] in to non-numeric Health Blood by results) System Automated count Lymphocyte 3.5 10 Normal (applies Lymphocyte # [facility] percent to non-numeric Health differential results) System count (procedure) Neutrophils/100 57.3 % Normal (applies Neutrophil % [place] [facility] leukocytes in to non-numeric Health Blood by results) System Automated count Monocytes/100 5.6 % Below low normal Monocyte % [facility] leukocytes in [facility] Blood System Eosinophils/100 5.6 % Above high normal Eosinophil % [facility] leukocytes in [facility] Unspecified System specimen Basophils/100 0.4 % Normal (applies Basophil % [facility] leukocytes in to non-numeric Health Unspecified results) System specimen by Manual count Lymphocytes 31.1 % Normal (applies Lymphocyte % [facility] [#/volume] in to non-numeric Health Blood by results) System Automated count ID Date Data Source [id number] 02/11/2015 06:00:00 AM EDT [facility] System Name Value Range Interpretation Description Data Sup porting Code Source(s) Document(s ) Leukocytes 9.9 10 Normal (applies WBC Count [facility] [#/volume] in to non-numeric Health Unspecified results) System specimen by Automated count Erythrocytes 4.05 10 Normal (applies RBC Count [facility] [#/volume] in to non-numeric Health Blood by results) System Automated count Hemoglobin 10.8 Below low normal Hemoglobin [facility] [Mass/volume] in {gm/dL} Health Blood System Hematocrit 33.9 % Below low normal Hematocrit [facility] [Volume Health Fraction] of System Blood Erythrocyte mean 83.7 fl Normal (applies MCV [facility] corpuscular to non-numeric Health volume [Entitic results) System volume] by Automated count Erythrocyte mean 26.7 pg Normal (applies [facility]CH [facility] corpuscular to non-numeric Health hemoglobin results) System [Entitic mass] by Automated count Erythrocyte mean 31.9 Below low normal [facility] corpuscular {gm/dL} Health hemoglobin System concentration [Mass/volume] by Automated count Erythrocyte 16.2 % Above high normal RDW-CV [facility] distribution Health width [Entitic System volume] by Automated count Platelets 474 10 Above high normal Platelet [facility] [#/volume] in Count Health Plasma by System Automated count Platelet mean 10.9 fl Above high normal MPV [facility] volume [Entitic Health volume] in Blood System by Automated count Monocytes 0.6 10 Normal (applies Monocyte # [facility] [#/volume] in to non-numeric Health Blood by Manual results) System count Eosinophils 0.51 10 Above high normal Eosinophil # [facility] [#/volume] in Health Blood System Neutrophils 6.0 10 Normal (applies Neutrophil # [facility] [#/volume] in to non-numeric Health Body fluid results) System Basophils 0.03 10 Normal (applies Basophil # [facility] [#/volume] in to non-numeric Health Blood by results) System Automated count Lymphocyte 2.8 10 Normal (applies Lymphocyte # [facility] percent to non-numeric Health differential results) System count (procedure) Neutrophils/100 60.1 % Normal (applies Neutrophil % [place] leukocytes in to non-numeric Health Blood by results) System Automated count Monocytes/100 6.0 % Normal (applies Monocyte % [facility] leukocytes in to non-numeric Health Blood results) System Eosinophils/100 5.1 % Above high normal Eosinophil % [facility] leukocytes in [facility] Unspecified System specimen Basophils/100 0.3 % Normal (applies Basophil % [facility] leukocytes in to non-numeric Health Unspecified results) System specimen by Manual count Lymphocytes 28.5 % Normal (applies Lymphocyte % [facility] [#/volume] in to non-numeric Health Blood by results) System Automated count ID Date Data Source [id number] 03/10/2015 12:49:00 PM EDT [facility] System Name Value Range Interpretation Description Data Source(s ) Supporting Code Document(s ) Pregnanc Negative Normal (applies to Test [facility] yTestUri non-numeric Urine, Health System ne,Visib results) Visibility ilityCol Color Complete orComple te This test can detect HCG urine concentra tion of 25mIU/ml or greater. Negative result at 4 minute reading does not rule out ea rly . If clinically indicated, serum quantitative HCG test should be ordered. ID Date Data Source [id number] 03/29/2015 05:55:00 PM EDT [facility] System Name Value Range Interpretation Description Data Sup porting Code Source(s) Document(s ) Leukocytes 8.7 Normal (applies WBC Count [facility] [#/volume] in {10^3_uL to non-numeric Health Unspecified } results) System specimen by Automated count Erythrocytes 3.77 Below low normal RBC Count [facility] [#/volume] in {10^6_uL Health Blood by } System Automated count Hemoglobin 10.1 Below low normal Hemoglobin [facility] [Mass/volume] in {gm/dL} Health Blood System Hematocrit 32.2 % Below low normal Hematocrit [facility] [Volume Health Fraction] of System Blood Erythrocyte mean 85.4 fl Normal (applies MCV [facility] corpuscular to non-numeric Health volume [Entitic results) System volume] by Automated count Erythrocyte mean 26.8 pg Normal (applies MCH [facility] corpuscular to non-numeric Health hemoglobin results) System [Entitic mass] by Automated count Erythrocyte mean 31.4 Below low normal [facility] corpuscular {gm/dL} Health hemoglobin System concentration [Mass/volume] by Automated count Erythrocyte 17.0 % Above high normal RDW-CV [facility] distribution Health width [Entitic System volume] by Automated count Platelets 321 Normal (applies Platelet [facility] [#/volume] in {10^3_uL to non-numeric Count Health Plasma by } results) System Automated count Platelet mean 10.4 fl Normal (applies MPV [facility] volume [Entitic to non-numeric Health volume] in Blood results) System by Automated count Monocytes 0.7 Normal (applies Monocyte # [facility] [#/volume] in {10^3_uL to non-numeric Health Blood by Manual } results) System count Eosinophils 0.27 Normal (applies Eosinophil # [facility] [#/volume] in {10^3_uL to non-numeric Health Blood } results) System Neutrophils 4.4 Normal (applies Neutrophil # [facility] [#/volume] in {10^3_uL to non-numeric Health Body fluid } results) System Basophils 0.03 Normal (applies Basophil # [facility] [#/volume] in {10^3_uL to non-numeric Health Blood by } results) System Automated count Lymphocyte 3.4 Normal (applies Lymphocyte # [facility] percent {10^3_uL to non-numeric Health differential } results) System count (procedure) Neutrophils/100 50.0 % Normal (applies Neutrophil % [place] leukocytes in to non-numeric Health Blood by results) System Automated count Monocytes/100 7.8 % Normal (applies Monocyte % [facility] leukocytes in to non-numeric Health Blood results) System Eosinophils/100 3.1 % Above high normal Eosinophil % [facility] leukocytes in [facility] Unspecified System specimen Basophils/100 0.3 % Normal (applies Basophil % [facility] leukocytes in to non-numeric Health Unspecified results) System specimen by Manual count Lymphocytes 38.8 % Normal (applies Lymphocyte % [facility] [#/volume] in to non-numeric Health Blood by results) System Automated count ID Date Data Source [id number] 03/29/2015 05:55:00 PM EDT [facility] System Name Value Range Interpretation Description Data Sup porting Code Source(s) Document(s ) Sodium 141 Normal (applies Sodium, Serum [facility] [Moles/volume] in mmol/L to non-numeric Health Serum or Plasma results) System Potassium 4.0 Normal (applies Potassium, [facility] [Mass/volume] in mmol/L to non-numeric Serum Health Serum or Plasma results) System Chloride 107 Normal (applies Chloride, [facility] [Moles/volume] in mmol/L to non-numeric Serum Health Serum or Plasma results) System Carbon dioxide, 24.0 Normal (applies CO2, Serum [facility] total mmol/L to non-numeric Health [Moles/volume] in results) System Serum or Plasma TotalProtein 7.1 Normal (applies Total Protein [facility] mg/dl to non-numeric Health results) System Glucose 103 Normal (applies Glucose, [facility] [Mass/volume] in mg/dL to non-numeric Serum Health Serum or Plasma results) System Urea nitrogen 9 mg/dl Normal (applies Blood Urea [facility] [Mass/volume] in to non-numeric Nitrogen, Health Serum or Plasma results) Serum System Creatinine 0.67 Below low normal Creatinine, [facility] [Mass/volume] in mg/dl Serum Health Serum or Plasma System Alkaline 157 Above high Alkaline [facility] phosphatase {IU/L} normal Phosphatase, Health isoenzymes Serum System [Enzymatic activity/volume] in Serum or Plasma by Heat stability Bilirubin.total 0.2 Normal (applies Bilirubin, [facility] [Mass/volume] in mg/dl to non-numeric Serum Total Health Serum or Plasma results) System DirectBilirubin 0.1 Normal (applies Direct [facility] mg/dl to non-numeric Bilirubin Health results) System Aspartate 35 Normal (applies Aspartate [facility] aminotransferase {IU/L} to non-numeric Transaminase, Heal th [Enzymatic results) Serum System activity/volume] in Serum or Plasma by With P-5'-P Albumin 3.8 Below low normal Albumin, [facility] [Mass/volume] in {gm/dl} Serum Health Serum or Plasma System I.Phosphorus 3.8 Normal (applies I. Phosphorus [facility] mg/dl to non-numeric Health results) System Alanine 63 Above high Alanine [facility] aminotransferase {IU/L} normal Aminotransfer Health [Enzymatic ase, Serum System activity/volume] in Serum or Plasma Calcium 9.1 Normal (applies Calcium, [facility] [Mass/volume] in mg/dl to non-numeric Total Serum Health Serum or Plasma results) System A/GRatio 1.15 Normal (applies A/G Ratio [facility] to non-numeric Health results) System Urate 4.7 Normal (applies Uric Acid, [facility] [Mass/volume] in mg/dl to non-numeric Serum Health Serum or Plasma results) System Anion gap in Serum 10.00 Normal (applies Anion Gap [place] [facility] or Plasma mmol/L to non-numeric Health results) System Glomerular > 90 Normal (applies GFR [facility] filtration to non-numeric Health rate/1.73 sq results) System M.predicted [Volume Rate/Area] in Serum or Plasma by Creatinine-based formula (CKD-EPI) eGFR will provide clinicians with a more accurate indicator of renal function then the serum creatinine. The eGFR is automa tically calculated from an empiric formula (endorsed by the [employer] ion) which incorporates age, sex, and race.Clinicians may notice surprisingly low GFR's with serum creatinine valueswithin normal range- particularly in elderly wo men (with low muscle mass).In the hospital setting, the eGFR should add an element of safety in drug dosing, in assessing the risk of IV contrast administration, and in assessing vascular risk.The NKF staging system is as follows:Normal: eGFR >90 with no kidney markersStage 1: eGFR >90 with kidney markers*Stage 2: eGFR 60- 89Stage 3: eGFR 30-59Stage 4: eGFR 15-29Stage 5: eGFR <15 (usually requir ing dialysis)*Markers include: Proteinuria, Hematuria, abnormal imaging-studies, or other blood or urine test abnormalities ID Date Data Source [id number] 03/29/2015 05:55:00 PM EDT [facility] System Name Value Range Interpretation Description Data Sup porting Code Source(s) Document(s ) Bacteria NO GROWTH Culture [facility] identified in Bacteria Blood Health Syst em Blood by [facility] culture ID Date Data Source [id number] 03/29/2015 05:55:00 PM EDT [facility] System Name Value Range Interpretation Description Data Sup porting Code Source(s) Document(s ) Bacteria NO GROWTH Culture [facility] identified in Bacteria Blood Health Syst em Blood by [facility] culture ID Date Data Source [id number] 03/30/2015 08:30:00 AM EDT [facility] System Name Value Range Interpretation Description Data Sup porting Code Source(s) Document(s ) TissueExam Results for case # Normal (applies Tissue Exam [facility] [id number] to non-[facility] SURGICAL PATHOLOGY results) System REPORTCLINICAL INFORMATION: Infected mediport.PREOPERAT MAURA DIAGNOSIS: Same.POSTOPERATIVE DIAGNOSIS: Same.FINAL DIAGNOSIS: Mediport. (Gross)SARA/Maryanne BRYANT MDElectronically Signed By: GROSS DESCRIPTION:Receiv ed fresh, labeled "old mediport", the specimen consists of a 3 x 1.8cm [place] white, discoid medical apparatus model maker inscribed with "[id number]". There is an attached 22 x 0.3cm clear and blue rubbery tube. No soft tissue is identified. No sections are submitted. Gross only.PT/st Page 1 of 1Testing performed at [facility], [address] [place] [id number]. ID Date Data Source [id number] 03/30/2015 08:53:00 AM EDT [facility] System culture and sensitivity Name Value Range Interpretation Description Data Sup porting Code Source(s) Document(s ) Bacteria . Culture, Wound [facility] identified in Health System Wound by Culture ID Date Data Source [id number] 08/11/2015 01:40:00 PM EDT [facility] System Name Value Range Interpretation Description Data Source(s ) Supporting Code Document(s ) Pregnanc Negative Normal (applies to Test [facility] yTestUri non-numeric Urine, Health System ne,Visib results) Visibility ilityCol Color Complete orComple te This test can detect HCG urine concentra tion of 25mIU/ml or greater. Negative result at 4 minute reading does not rule out ea rly . If clinically indicated, serum quantitative HCG test should be ordered. ID Date Data Source [id number] 08/11/2015 01:40:00 PM EDT [facility] System Name Value Range Interpretation Description Data Sup porting Code Source(s) Document(s ) Leukocytes 9.0 Normal (applies WBC Count [facility] [#/volume] in {10^3_uL to non-numeric Health Unspecified } results) System specimen by Automated count Erythrocytes 4.51 Normal (applies RBC Count [facility] [#/volume] in {10^6_uL to non-numeric Health Blood by } results) System Automated count Hemoglobin 13.3 Normal (applies Hemoglobin [facility] [Mass/volume] in {gm/dL} to non-numeric Health Blood results) System Hematocrit 40.0 % Normal (applies Hematocrit [facility] [Volume to non-numeric Health Fraction] of results) System Blood Erythrocyte mean 88.7 fl Normal (applies MCV [facility] corpuscular to non-numeric Health volume [Entitic results) System volume] by Automated count Erythrocyte mean 29.5 pg Normal (applies MCH [facility] corpuscular to non-numeric Health hemoglobin results) System [Entitic mass] by Automated count Erythrocyte mean 33.3 Normal (applies MCHC [facility] corpuscular {gm/dL} to non-numeric Health hemoglobin results) System concentration [Mass/volume] by Automated count Erythrocyte 21.5 % Above high normal RDW-CV [facility] distribution Health width [Entitic System volume] by Automated count Platelets 284 Normal (applies Platelet [facility] [#/volume] in {10^3_uL to non-numeric Count Health Plasma by } results) System Automated count Platelet mean 12.1 fl Above high normal MPV [facility] volume [Entitic Health volume] in Blood System by Automated count Monocytes 0.2 Below low normal Monocyte # [facility] [#/volume] in {10^3_uL Health Blood by Manual } System count Eosinophils 0.17 Normal (applies Eosinophil # [facility] [#/volume] in {10^3_uL to non-numeric Health Blood } results) System Neutrophils 5.4 Normal (applies Neutrophil # [facility] [#/volume] in {10^3_uL to non-numeric Health Body fluid } results) System Basophils 0.01 Normal (applies Basophil # [facility] [#/volume] in {10^3_uL to non-numeric Health Blood by } results) System Automated count Lymphocyte 3.3 Normal (applies Lymphocyte # [facility] percent {10^3_uL to non-numeric Health differential } results) System count (procedure) Neutrophils/100 59.8 % Normal (applies Neutrophil % [place] [facility] leukocytes in to non-numeric Health Blood by results) System Automated count Monocytes/100 1.8 % Below low normal Monocyte % [facility] leukocytes in Health Blood System Eosinophils/100 1.9 % Normal (applies Eosinophil % [place] leukocytes in to non-numeric Health Unspecified results) System specimen Basophils/100 0.1 % Normal (applies Basophil % [facility] leukocytes in to non-numeric Health Unspecified results) System specimen by Manual count Lymphocytes 36.4 % Normal (applies Lymphocyte % [facility] [#/volume] in to non-numeric Health Blood by results) System Automated count ID Date Data Source [id number] 08/11/2015 01:40:00 PM EDT [facility] Name Value Range Interpretation Description Data Sup porting Code Source(s) Document(s ) HCGQualitative NEGATIVE Normal (applies HCG [facility] to non-numeric Qualitative Health results) System Default Normal RangesNegative <5Indeterm inate 5-25(Please repeat in 2 days.)Positive >25 ID Date Data Source [id number] 08/11/2015 01:40:00 PM EDT [facility] Name Value Range Interpretation Description Data Sup porting Code Source(s) Document(s ) Sodium 131 mmol/L Below low normal Sodium, Serum [facility] [Moles/volume Health ] in Serum or System Plasma Potassium Cancelled Potassium, [facility] [Mass/volume] SPEC Serum Health in Serum or System Plasma Chloride 101 mmol/L Normal (applies Chloride, [facility] [Moles/volume to non-numeric Serum Health ] in Serum or results) System Plasma Carbon 21.0 mmol/L Below low normal CO2, Serum [facility] dioxide, Health total System [Moles/volume ] in Serum or Plasma Glucose 136 mg/dL Above high Glucose, [facility] [Mass/volume] normal Serum Health in Serum or System Plasma Urea nitrogen 15 mg/dl Normal (applies Blood Urea [facility] [Mass/volume] to non-numeric Nitrogen, Health in Serum or results) Serum System Plasma Creatinine 0.80 mg/dl Normal (applies Creatinine, [facility] [Mass/volume] to non-numeric Serum Health in Serum or results) System Plasma Calcium 8.9 mg/dl Normal (applies Calcium, [facility] [Mass/volume] to non-numeric Total Serum Health in Serum or results) System Plasma Anion gap in 9.00 mmol/L Normal (applies Anion Gap [facility] Serum or to non-numeric Health Plasma results) System ID Date Data Source [id number] 08/11/2015 01:40:00 PM EDT [facility] System Name Value Range Interpretation Description Data Sup porting Code Source(s) Document(s ) Albumin 4.0 Normal (applies Albumin, [facility] [Mass/volume] in {gm/dl} to non-numeric Serum Health Serum or Plasma results) System Bilirubin.total 0.2 Normal (applies Bilirubin, [facility] [Mass/volume] in mg/dl to non-numeric Serum Total Health Serum or Plasma results) System Aspartate 99 Above high Aspartate [facility] aminotransferase {IU/L} normal Transaminase, Health [Enzymatic Serum System activity/volume] in Serum or Plasma by With P-5'-P Alanine 30 Normal (applies Alanine [facility] aminotransferase {IU/L} to non-numeric Aminotransfer Heal th [Enzymatic results) ase, Serum System activity/volume] in Serum or Plasma Alkaline 98 Normal (applies Alkaline [facility] phosphatase {IU/L} to non-numeric Phosphatase, Health isoenzymes results) Serum System [Enzymatic activity/volume] in Serum or Plasma by Heat stability DirectBilirubin < 0.1 Normal (applies Direct [facility] to non-numeric Bilirubin Health results) System TotalProtein 8.9 Above high Total Protein [facility] mg/dl normal Health System ID Date Data Source [id number] 10/27/2015 07:15:00 AM EST [facility] Name Value Range Interpretation Description Data Source(s ) Supporting Code Document(s ) Pregnanc Negative Normal (applies to Test [facility] yTest[facility] non-numeric Urine, Health System ne,Visib results) Visibility ilityCol Color Complete orComple te This test can detect HCG urine concentra tion of 25mIU/ml or greater. Negative result at 4 minute reading does not rule out ea rly . If clinically indicated, serum quantitative HCG test should be ordered. ID Date Data Source [id number] 10/27/2015 07:15:00 AM EST [facility] Name Value Range Interpretation Description Data Sup porting Code Source(s) Document(s ) Leukocytes 12.5 Above high normal WBC Count [facility] [#/volume] in {10^3_uL Health Unspecified } System specimen by Automated count Erythrocytes 4.48 Normal (applies RBC Count [facility] [#/volume] in {10^6_uL to non-numeric Health Blood by } results) System Automated count Hemoglobin 13.5 Normal (applies Hemoglobin [facility] [Mass/volume] in {gm/dL} to non-numeric Health Blood results) System Hematocrit 40.9 % Normal (applies Hematocrit [facility] [Volume to non-numeric Health Fraction] of results) System Blood Erythrocyte mean 91.3 fl Normal (applies MCV [facility] corpuscular to non-numeric Health volume [Entitic results) System volume] by Automated count Erythrocyte mean 30.1 pg Normal (applies MCH [facility] corpuscular to non-numeric Health hemoglobin results) System [Entitic mass] by Automated count Erythrocyte mean 33.0 Normal (applies [facility] corpuscular {gm/dL} to non-numeric Health hemoglobin results) System concentration [Mass/volume] by Automated count Erythrocyte 15.4 % Above high normal RDW-CV [facility] distribution Health width [Entitic System volume] by Automated count Platelets 308 Normal (applies Platelet [facility] [#/volume] in {10^3_uL to non-numeric Count Health Plasma by } results) System Automated count Platelet mean 11.5 fl Above high normal MPV [facility] volume [Entitic Health volume] in Blood System by Automated count Monocytes 0.7 Normal (applies Monocyte # [facility] [#/volume] in {10^3_uL to non-numeric Health Blood by Manual } results) System count Eosinophils 0.21 Normal (applies Eosinophil # [facility] [#/volume] in {10^3_uL to non-numeric Health Blood } results) System Neutrophils 8.6 Above high normal Neutrophil # [facility] [#/volume] in {10^3_uL Health Body fluid } System Basophils 0.03 Normal (applies Basophil # [facility] [#/volume] in {10^3_uL to non-numeric Health Blood by } results) System Automated count Lymphocyte 3.0 Normal (applies Lymphocyte # [facility] percent {10^3_uL to non-numeric Health differential } results) System count (procedure) Neutrophils/100 69.0 % Normal (applies Neutrophil % [place] leukocytes in to non-numeric Health Blood by results) System Automated count Monocytes/100 5.4 % Below low normal Monocyte % [facility] leukocytes in Health Blood System Eosinophils/100 1.7 % Normal (applies Eosinophil % [place] [facility] leukocytes in to non-numeric Health Unspecified results) System specimen Basophils/100 0.2 % Normal (applies Basophil % [facility] leukocytes in to non-numeric Health Unspecified results) System specimen by Manual count Lymphocytes 23.7 % Normal (applies Lymphocyte % [facility] [#/volume] in to non-numeric Health Blood by results) System Automated count ID Date Data Source [id number] 10/27/2015 07:15:00 AM EST [facility] Name Value Range Interpretation Description Data Source(s ) Supporting Code Document(s ) Sodium 142 Normal (applies to Sodium, Serum [facility] [Moles/vol mmol/L non-numeric Health System ume] in results) Serum or Plasma Previously released as 141 on 10/27/2015, 08:12 AM by [id number] - Potassium 4.6 mmol/L Normal (applies to Potassium, Serum [facility] [Mass/volume] in non-numeric Health Syst em Serum or Plasma results) Chloride 105 mmol/L Normal (applies to Chloride, Serum [facility] [Moles/volume] in non-numeric Health Sys tem Serum or Plasma results) Previously released as 104 on 10/27/2015, 08:12 AM by [id number] - Carbon dioxide, total 28.0 mmol/L Normal (applies to CO2, Serum [facility] [Moles/volume] in non-numeric System Serum or Plasma results) Previously released as 26.0 on 10/27/2015 , 08:12 AM by [id number] - Glucose [Mass/volume] 109 mg/dL Above high Glucose, Serum [facility] in Serum or Plasma normal System Previously released as 107 on 10/27/2015, 08:12 AM by [id number] - Urea nitrogen 12 mg/dl Normal (applies to Blood Urea [facility] [Mass/volume] in non-numeric Nitrogen, Serum Healt h System Serum or Plasma results) Creatinine 0.70 mg/dl Normal (applies to Creatinine, [facility] [Mass/volume] in non-numeric Serum Health Syst em Serum or Plasma results) Previously released as 0.72 on 10/27/2015 , 08:12 AM by [id number] - Calcium 9.4 mg/dl Normal (applies to Calcium, Total [facility] [Mass/volume] in non-numeric Serum Health Syst em Serum or Plasma results) Anion gap in Serum 9.00 mmol/L Normal (applies to Anion Gap [facility] or Plasma non-numeric Health System results) Previously released as 8.00 on 10/27/2015 , 08:36 AM by [id number] - Previously released as 9.00 on 10/27/2015, 08:36 AM by [id number] - Previously released as 11.00 on 10/27/2015, 08:12 AM by [id number] - ID Date Data Source [id number] 10/27/2015 12:39:13 PM EST [facility] Name Value Range Interpretation Description Data Sup porting Code Source(s) Document(s ) TissueExam Results for case # Normal (applies Tissue Exam [facility] [id number] to non-numeric [facility] SURGICAL PATHOLOGY results) System REPORTCLINICAL INFORMATION: Venous insufficiency. PREOPERATIVE DIAGNOSIS: Same.POSTOPERATIVE DIAGNOSIS: FINAL DIAGNOSIS: Mediport (gross).GO/Ivette BRYANT MDElectronically Signed By: GROSS DESCRIPTION: Received in formalin, labeled "mediport", the specimen consists of a 3 x 3 x 1.5 cm, round, plastic, white device, labeled "CARLOS,277Joaquin". There is an attached 25 x 0.2 x 0.2 cm, translucent, blue tubing. No tissue is submitted - gross diagnosis only.MV/cm Page 1 of 1Testing performed at [facility], [address] [place] [id number]. ID Date Data Source [id number] 02/16/2016 10:21:00 AM EDT [facility] System Name Value Range Interpretation Description Data Sup porting Code Source(s) Document(s ) Leukocytes 10.4 Normal (applies WBC Count [facility] [#/volume] in {10^3_uL to non-numeric Health Unspecified } results) System specimen by Automated count Erythrocytes 4.46 Normal (applies RBC Count [facility] [#/volume] in {10^6_uL to non-numeric Health Blood by } results) System Automated count Hemoglobin 13.1 Normal (applies Hemoglobin [facility] [Mass/volume] in {gm/dL} to non-numeric Health Blood results) System Hematocrit 39.7 % Normal (applies Hematocrit [facility] [Volume to non-numeric Health Fraction] of results) System Blood Erythrocyte mean 89.0 fl Normal (applies MCV [facility] corpuscular to non-numeric Health volume [Entitic results) System volume] by Automated count Erythrocyte mean 29.4 pg Normal (applies MCH [facility] corpuscular to non-numeric Health hemoglobin results) System [Entitic mass] by Automated count Erythrocyte mean 33.0 Normal (applies MCHC [facility] corpuscular {gm/dL} to non-numeric Health hemoglobin results) System concentration [Mass/volume] by Automated count Erythrocyte 16.0 % Above high normal RDW-CV [facility] distribution Health width [Entitic System volume] by Automated count Platelets 328 Normal (applies Platelet [facility] [#/volume] in {10^3_uL to non-numeric Count Health Plasma by } results) System Automated count Platelet mean 11.7 fl Above high normal MPV [facility] volume [Entitic Health volume] in Blood System by Automated count Monocytes 0.5 Normal (applies Monocyte # [facility] [#/volume] in {10^3_uL to non-numeric Health Blood by Manual } results) System count Eosinophils 0.20 Normal (applies Eosinophil # [facility] [#/volume] in {10^3_uL to non-numeric Health Blood } results) System Neutrophils 6.2 Normal (applies Neutrophil # [facility] [#/volume] in {10^3_uL to non-numeric Health Body fluid } results) System Basophils 0.02 Normal (applies Basophil # [facility] [#/volume] in {10^3_uL to non-numeric Health Blood by } results) System Automated count Lymphocyte 3.5 Normal (applies Lymphocyte # [facility] percent {10^3_uL to non-numeric Health differential } results) System count (procedure) Neutrophils/100 59.5 % Normal (applies Neutrophil % [facility] leukocytes in to non-numeric Health Blood by results) System Automated count Monocytes/100 4.9 % Below low normal Monocyte % [facility] leukocytes in Health Blood System Eosinophils/100 1.9 % Normal (applies Eosinophil % [facility] leukocytes in to non-numeric Health Unspecified results) System specimen Basophils/100 0.2 % Normal (applies Basophil % [facility] leukocytes in to non-numeric Health Unspecified results) System specimen by Manual count Lymphocytes 33.5 % Normal (applies Lymphocyte % [facility] [#/volume] in to non-numeric Health Blood by results) System Automated count ID Date Data Source [id number] 02/16/2016 10:21:00 AM EDT [facility] System Name Value Range Interpretation Description Data Sup porting Code Source(s) Document(s ) Human NEGATIVE OR Normal (applies HIV test, [facility] immunodeficiency NONREACTIVE to non-numeric Routine Health virus antibody Test was results) (antigen and System titer measurement performed at antibody (procedure) [facility] testing) [id number] ID Date Data Source [id number] 02/16/2016 10:21:00 AM EDT [facility] System Name Value Range Interpretation Description Data Sup porting Code Source(s) Document(s ) Sodium 141 Normal (applies Sodium, Serum [facility] [Moles/volume] in mmol/L to non-numeric Health Serum or Plasma results) System Potassium 4.9 Normal (applies Potassium, [facility] [Mass/volume] in mmol/L to non-numeric Serum Health Serum or Plasma results) System Chloride 105 Normal (applies Chloride, [facility] [Moles/volume] in mmol/L to non-numeric Serum Health Serum or Plasma results) System Carbon dioxide, 26.0 Normal (applies CO2, Serum [facility] total mmol/L to non-numeric Health [Moles/volume] in results) System Serum or Plasma TotalProtein 6.6 Normal (applies Total Protein [facility] mg/dl to non-numeric Health results) System Glucose 85 Normal (applies Glucose, [facility] [Mass/volume] in mg/dL to non-numeric Serum Health Serum or Plasma results) System Urea nitrogen 8 mg/dl Normal (applies Blood Urea [facility] [Mass/volume] in to non-numeric Nitrogen, Health Serum or Plasma results) Serum System Creatinine 0.66 Below low normal Creatinine, [facility] [Mass/volume] in mg/dl Serum Health Serum or Plasma System Alkaline 98 Normal (applies Alkaline [facility] phosphatase {IU/L} to non-numeric Phosphatase, Health isoenzymes results) Serum System [Enzymatic activity/volume] in Serum or Plasma by Heat stability Bilirubin.total 0.4 Normal (applies Bilirubin, [facility] [Mass/volume] in mg/dl to non-numeric Serum Total Health Serum or Plasma results) System DirectBilirubin 0.1 Normal (applies Direct [facility] mg/dl to non-numeric Bilirubin Health results) System Aspartate 28 Normal (applies Aspartate [facility] aminotransferase {IU/L} to non-numeric Transaminase, Heal th [Enzymatic results) Serum System activity/volume] in Serum or Plasma by With P-5'-P Albumin 3.8 Below low normal Albumin, [facility] [Mass/volume] in {gm/dl} Serum Health Serum or Plasma System I.Phosphorus 3.5 Normal (applies I. Phosphorus [facility] mg/dl to non-numeric Health results) System Alanine 29 Normal (applies Alanine [facility] aminotransferase {IU/L} to non-numeric Aminotransfer Heal th [Enzymatic results) ase, Serum System activity/volume] in Serum or Plasma Calcium 9.5 Normal (applies Calcium, [facility] [Mass/volume] in mg/dl to non-numeric Total Serum Health Serum or Plasma results) System A/GRatio 1.36 Normal (applies A/G Ratio [facility] to non-numeric Health results) System Urate 4.7 Normal (applies Uric Acid, [facility] [Mass/volume] in mg/dl to non-numeric Serum Health Serum or Plasma results) System Anion gap in Serum 10.00 Normal (applies Anion Gap [facility] n[facility] or Plasma mmol/L to non-numeric Health results) System Glomerular > 90 Normal (applies GFR [facility] filtration to non-numeric Health rate/1.73 sq results) System M.predicted [Volume Rate/Area] in Serum or Plasma by Creatinine-based formula (CKD-EPI) eGFR will provide clinicians with a more accurate indicator of renal function then the serum creatinine. The eGFR is automa tically calculated from an empiric formula (endorsed by the National [employer] ion) which incorporates age, sex, and race.Clinicians may notice surprisingly low GFR's with serum creatinine valueswithin normal range- particularly in elderly wo men (with low muscle mass).In the hospital setting, the eGFR should add an element of safety in drug dosing, in assessing the risk of IV contrast administration, and in assessing vascular risk.The NKF staging system is as follows:Normal: eGFR >90 with no kidney markersStage 1: eGFR >90 with kidney markers*Stage 2: eGFR 60- 89Stage 3: eGFR 30-59Stage 4: eGFR 15-29Stage 5: eGFR <15 (usually requir ing dialysis)*Markers include: Proteinuria, Hematuria, abnormal imaging-studies, or other blood or urine test abnormalities ID Date Data Source [id number] 02/16/2016 10:21:00 AM EDT [facility] System Name Value Range Interpretation Description Data Sup porting Code Source(s) Document(s ) Triglyceride 117 Normal (applies Triglycerides, [facility] [Mass/volume] mg/dl to non-numeric Serum Health in Serum or results) System Plasma Optimal = < 100 mg/dLBoderline High = 15 0 - 199 mg/dLHigh = 200 - 499 mg/dLVery High = > 500 mg/dL Cholesterol 187 mg/dl Normal (applies Cholesterol, Serum [facility] [Mass/volume] in to non-numeric Health S ystem Serum or Plasma results) <200 mg/dL = Xiorupoyu422 - 239 md/dL = Borderline>240 mg/dL = High Risk Cholesterol in HDL 43.0 mg/dL Normal (applies HDL Cholestero l, [facility] [Mass/volume] in to non-numeric Serum Health S ystem Serum or Plasma results) Cholesterol in LDL 120.6 mg/dL Normal (applies Low Density [facility] [Mass/volume] in to non-numeric Lipoprotein, Healt h System Serum or Plasma results) Calculated OPTIMAL: LESS THAN 100 mg/dLNEAR OPTIMAL : 100 - 129 mg/dLBODERLINE HIGH: 130 - 150 mg/dL Cholesterol in VLDL 23.4 Normal (applies to VLDL, Serum [facility] Health [Mass/volume] in Serum non-numeric results) System or Plasma CHDRisk 4.35 Normal (applies to CHD Risk [facility] non-numeric results) System ID Date Data Source [id number] 02/16/2016 10:21:00 AM EDT [facility] Name Value Range Interpretation Code Description Data Sierra rce(s) Supporting Document(s ) HbA1C 6.1 % Normal (applies to HbA1C [facility] non-numeric results) System ID Date Data Source [id number] 03/05/2016 02:46:00 PM EDT [facility] Name Value Range Interpretation Description Data Sup porting Code Source(s) Document(s ) C.Trac Not Normal (applies C. [facility] homati DetectedReference to non-numeric [facility] sAmp Range: Not Detected results) Amp System N.Gono Not Normal (applies N. Gonorrhea [facility] rrheab DetectedReference to non-numeric by [facility] Health yLCR Range: Not results) System DetectedThis test was performed using the APTIMA COMBO2(R) Assay(GEN-PROBE(R)) .Test Performed at:[facility] [employer], [place], [place] [address]Luis Loya M.D. ID Date Data Source [id number] 03/05/2016 02:46:00 PM EDT [facility] Name Value Range Interpretation Description Data Sup porting Code Source(s) Document(s ) ReportStatus FINAL Normal (applies Report Status [facility] to non-numeric Health results) System NUMBEROFSLID 1 Normal (applies NUMBER OF SLIDES [facility] ES to non-numeric Health results) System STATEMENTOFA SEE Normal (applies STATEMENT OF [facility] DEQUACY NOTESatisfac to non-numeric ADEQUACY Health tory for results) System evaluation.E ndocervical/ transformati on zone componentpre sent.Age and/or menstrual status not provided GENERALCATEG DNR Normal (applies GENERAL [facility] ORIZATION to non-numeric CATEGORIZATION Health results) System INTERPRETATI SEE Normal (applies INTERPRETATION/RE [facility] ON/RESULT1 NOTENegative to non-numeric SULT 1 Health for results) System intraepithel ial lesion or malignancy. INTERPRETATI DNR Normal (applies INTERPRETATION/RE [facility] ON/RESULT2 to non-numeric SULT 2 Health results) System COMMENTCYTO DNR Normal (applies COMMENT CYTO [facility] to non-numeric Health results) System CYTOTECHNOLO SEE NOTEJFG, Normal (applies VIDEO GAMES MECHANIC [facility] GIST CT(ASCP)CT to non-numeric Health screening results) System location: [facility] [place] [address] REVIEWCYTOTE SEE NOTEJJH, Normal (applies REVIEW [facility] CHNOLOGIST CT(ASCP)CT to non-numeric VIDEO GAMES MECHANIC Health screening results) System location: [facility] [place] [address] PATHOLOGIST. DNR Normal (applies PATHOLOGIST. [facility] to non-numeric Health results) System HPV DetectedRefe Abnormal HPV [facility] rence Range: (applies to Health Not non-numeric System DetectedREFE results) RENCE RANGE: NOT DETECTEDThis test was performed using the APTIMA HPV Assay([employer] This assay detects E6/E7 viralmesseng er RNA (mRNA) from 14 high-risk HPV types(16,18, 31,33,35,39, 45,51,52,56, 58,59,66,68) .Test Performed at:[facility] [employer], [place], [place] [address]Allyssa Loya M.D. ID Date Data Source [id number] 09/17/2016 03:16:00 PM EDT [facility] Name Value Range Interpretation Description Data Source(s ) Supporting Code Document(s ) Pregnanc Negative Normal (applies to Test [facility] yTestUri non-numeric Urine, Health System ne,Visib results) Visibility ilityCol Color Complete orComple te This test can detect HCG urine concentra tion of 25mIU/ml or greater. Negative result at 4 minute reading does not rule out ea rly . If clinically indicated, serum quantitative HCG test should be ordered. ID Date Data Source [id number] 10/08/2016 07:45:00 AM EST [facility] Name Value Range Interpretation Description Data Source(s ) Supporting Code Document(s ) Pregnanc Negative Normal (applies to Test [facility] yTestUri non-numeric Urine, Health System ne,Visib results) Visibility ilityCol Color Complete orComple te This test can detect HCG urine concentra tion of 25mIU/ml or greater. Negative result at 4 minute reading does not rule out ea rly . If clinically indicated, serum quantitative HCG test should be ordered. ID Date Data Source [id number] 10/08/2016 07:45:00 AM EST [facility] Name Value Range Interpretation Description Data Sup porting Code Source(s) Document(s ) Leukocytes 13.8 Above high normal WBC Count [facility] [#/volume] in {10^3_uL Health Unspecified } System specimen by Automated count Erythrocytes 4.64 Normal (applies RBC Count [facility] [#/volume] in {10^6_uL to non-numeric Health Blood by } results) System Automated count Hemoglobin 13.1 Normal (applies Hemoglobin [facility] [Mass/volume] in {gm/dL} to non-numeric Health Blood results) System Hematocrit 41.1 % Normal (applies Hematocrit [facility] [Volume to non-numeric Health Fraction] of results) System Blood Erythrocyte mean 88.6 fl Normal (applies MCV [facility] corpuscular to non-numeric Health volume [Entitic results) System volume] by Automated count Erythrocyte mean 28.2 pg Normal (applies MCH [facility] corpuscular to non-numeric Health hemoglobin results) System [Entitic mass] by Automated count Erythrocyte mean 31.9 Below low normal MCHC [facility] corpuscular {gm/dL} Health hemoglobin System concentration [Mass/volume] by Automated count Erythrocyte 17.3 % Above high normal RDW-CV [facility] distribution Health width [Entitic System volume] by Automated count Platelets 313 Normal (applies Platelet [facility] [#/volume] in {10^3_uL to non-numeric Count Health Plasma by } results) System Automated count Platelet mean 10.8 fl Above high normal MPV [facility] volume [Entitic Health volume] in Blood System by Automated count Monocytes 0.8 Normal (applies Monocyte # [facility] [#/volume] in {10^3_uL to non-numeric Health Blood by Manual } results) System count Eosinophils 0.28 Normal (applies Eosinophil # [facility] [#/volume] in {10^3_uL to non-numeric Health Blood } results) System Neutrophils 9.4 Above high normal Neutrophil # [facility] [#/volume] in {10^3_uL Health Body fluid } System Basophils 0.03 Normal (applies Basophil # [facility] [#/volume] in {10^3_uL to non-numeric Health Blood by } results) System Automated count Lymphocyte 3.4 Normal (applies Lymphocyte # [facility] percent {10^3_uL to non-numeric Health differential } results) System count (procedure) Neutrophils/100 67.8 % Normal (applies Neutrophil % [facility] leukocytes in to non-numeric Health Blood by results) System Automated count Monocytes/100 5.4 % Below low normal Monocyte % [facility] leukocytes in Health Blood System Eosinophils/100 2.0 % Normal (applies Eosinophil % [facility] leukocytes in to non-numeric Health Unspecified results) System specimen Basophils/100 0.2 % Normal (applies Basophil % [facility] leukocytes in to non-numeric Health Unspecified results) System specimen by Manual count Lymphocytes 24.6 % Normal (applies Lymphocyte % [facility] [#/volume] in to non-numeric Health Blood by results) System Automated count ID Date Data Source [id number] 10/08/2016 07:45:00 AM EST [facility] Name Value Range Interpretation Description Data Sup porting Code Source(s) Document(s ) Sodium 141 Normal (applies Sodium, Serum [facility] [Moles/volume mmol/L to non-numeric Health Syst em ] in Serum or results) Plasma Potassium 4.4 Normal (applies Potassium, [facility] [Mass/volume] mmol/L to non-numeric Serum Health Syst em in Serum or results) Plasma Chloride 104 Normal (applies Chloride, [facility] [Moles/volume mmol/L to non-numeric Serum Health Syst em ] in Serum or results) Plasma Carbon 27.0 Normal (applies CO2, Serum [facility] dioxide, mmol/L to non-numeric Health System total results) [Moles/volume ] in Serum or Plasma Glucose 136 Above high normal Glucose, Serum [facility] [Mass/volume] mg/dL Health System in Serum or Plasma Urea nitrogen 9 mg/dl Normal (applies Blood Urea [facility] [Mass/volume] to non-numeric Nitrogen, Health Syst em in Serum or results) Serum Plasma Creatinine 0.71 Normal (applies Creatinine, [facility] [Mass/volume] mg/dl to non-numeric Serum Health Syst em in Serum or results) Plasma Calcium 9.4 Normal (applies Calcium, Total [facility] [Mass/volume] mg/dl to non-numeric Serum Health Syst em in Serum or results) Plasma Anion gap in 10.00 Normal ([facility] or mmol/L to non-numeric Health System Plasma results) ID Date Data Source [id number] 10/10/2016 02:12:06 PM [facility] System Name Value Range Interpretation Description Data Sup porting Code Source(s) Document(s ) TissueExam Results for case Normal (applies Tissue Exam [facility] # [id number] to non-numeric Health SURGICAL results) System PATHOLOGY REPORTCLINICAL INFORMATION: Colon screening and history of colon cancer. PREOPERATIVE DIAGNOSIS: Same. POSTOPERATIVE DIAGNOSIS: Colonic polyp, diverticulosis, hemorrhoids, history of colon cancer. FINAL DIAGNOSIS: A: Colon, sigmoid, biopsy:Tubular adenoma.B: Colon, rectum, biopsy:Hyperplas tic polyp, goblet cell type.GO/Maryanne BRYANT MDElectronically Signed By: GROSS DESCRIPTION: A: In formalin with a partial collection device, labeled "sigmoid polyp", the specimen consists of a 0.3 x 0.2 x 0.2 cm, [place] polyp, which is inked at the resection margin, and entirely submitted in one cassette. B: In formalin, labeled "rectal polyp", the specimen consists of a 0.2 x 0.2 x 0.2 cm, polypoid tissue, which is inked at the resection margin, and entirely submitted in one cassette.MV/cm Page 1 of 1Testing performed at [facility], [address] [place] [id number]. ID Date Data Source [id number] 03/26/2017 12:23:00 PM EDT [facility] System Name Value Range Interpretation Description Data Sup porting Code Source(s) Document(s ) Color YELLOW Normal (applies Color [facility] to non-numeric Health results) System Appearance of CLEAR Normal (applies Urine [facility] Urine to non-numeric Appearance Health results) System Specific gravity 1.010 Normal (applies Urine Specific [facility] of Urine to non-numeric [facility] results) System pH.. 6.5 Normal (applies pH.. [facility] {pH_units} to non-numeric Health results) System Glucose,UA 100 mg/dl Normal (applies Glucose, UA [facility] to non-numeric Health results) System Protein NEGATIVE Normal (applies Protein [facility] [Mass/volume] in to non-numeric Health Serum or Plasma results) System BilirubinUrine NEGATIVE Normal (applies Bilirubin [facility] to non-numeric Urine Health results) System Urobilinogen 0.2 mg/dL Normal (applies Urobilinogen [facility] [Mass/volume] in to non-numeric UA Health Urine results) System Ketones NEGATIVE Normal (applies Ketones UA [facility] [Mass/volume] in to non-numeric Health Urine results) System Nitrate+Nitrite NEGATIVE Normal (applies Nitrite [facility] [Mass/volume] in to non-numeric Health Unspecified results) System specimen Leukocyte NEGATIVE Normal (applies Leukocyte [facility] esterase to non-numeric Esterase Health [Units/volume] results) Concentration System in Urine Leukocytes 1 {/HPF} Normal (applies White Blood [facility] [#/volume] in to non-numeric Cells Health Unspecified results) System specimen by Automated count RedBloodCells 2 {/HPF} Normal (applies Red Blood [facility] to non-numeric Cells Health results) System Epithelial cells 2 {/HPF} Normal (applies Epithelial [facility] [Presence] in to non-numeric Cells Health Unspecified results) System specimen by Wet preparation Bacteria 1+ Abnormal Bacteria [facility] [Presence] in (applies to Health Unspecified non-numeric System specimen results) UrineBlood TRACE-LYSE Abnormal Urine Blood [facility] D (applies to Health non-numeric System results) ID Date Data Source [id number] 03/26/2017 12:23:00 PM EDT [facility] Name Value Range Interpretation Description Data Sup porting Code Source(s) Document(s ) Leukocytes 11.9 Above high WBC Count [facility] [#/volume] in {10^3_uL normal Health Unspecified } System specimen by Automated count Erythrocytes 4.44 Normal (applies RBC Count [facility] [#/volume] in {10^6_uL to non-numeric Health Blood by } results) System Automated count Hemoglobin 12.7 Normal (applies Hemoglobin [facility] [Mass/volume] in {gm/dL} to non-numeric Health Blood results) System Hematocrit 39.7 % Normal (applies Hematocrit [facility] [Volume to non-numeric Health Fraction] of results) System Blood Erythrocyte mean 89.4 fl Normal (applies MCV [facility] corpuscular to non-numeric Health volume [Entitic results) System volume] by Automated count Erythrocyte mean 28.6 pg Normal (applies MCH [facility] corpuscular to non-numeric Health hemoglobin results) System [Entitic mass] by Automated count Erythrocyte mean 32.0 Below low normal [facility] corpuscular {gm/dL} Health hemoglobin System concentration [Mass/volume] by Automated count Erythrocyte 15.6 % Above high RDW-CV [facility] distribution normal Health width [Entitic System volume] by Automated count Platelets 291 Normal (applies Platelet Count [facility] [#/volume] in {10^3_uL to non-numeric Health Plasma by } results) System Automated count Platelet mean 11.7 fl Above high MPV [facility] volume [Entitic normal Health volume] in Blood System by Automated count Monocytes 0.8 Normal (applies Monocyte # [facility] [#/volume] in {10^3_uL to non-numeric Health Blood by Manual } results) System count Eosinophils 0.23 Normal (applies Eosinophil # [facility] [#/volume] in {10^3_uL to non-numeric Health Blood } results) System Neutrophils 7.6 Normal (applies Neutrophil # [facility] [#/volume] in {10^3_uL to non-numeric Health Body fluid } results) System Basophils 0.02 Normal (applies Basophil # [facility] [#/volume] in {10^3_uL to non-numeric Health Blood by } results) System Automated count Lymphocyte 3.2 Normal (applies Lymphocyte # [facility] percent {10^3_uL to non-numeric Health differential } results) System count (procedure) Neutrophils/100 64.0 % Normal (applies Neutrophil % [facility] nydia leukocytes in to non-numeric Health Blood by results) System Automated count Monocytes/100 7.0 % Normal (applies Monocyte % [facility] leukocytes in to non-numeric Health Blood results) System Eosinophils/100 1.9 % Normal (applies Eosinophil % [facility] leukocytes in to non-numeric Health Unspecified results) System specimen Basophils/100 0.2 % Normal (applies Basophil % [facility] leukocytes in to non-numeric Health Unspecified results) System specimen by Manual count Lymphocytes 26.9 % Normal (applies Lymphocyte % [facility] [#/volume] in to non-numeric Health Blood by results) System Automated count ImmatureGranuloc 0.6 % Normal (applies Immature [facility] ytes% to non-numeric Granulocytes % Health results) System Nucleated 0.0 Normal (applies NRBC % [facility] erythrocytes {/100_WB to non-numeric Health [#/volume] in C} results) System Body fluid ImmatureGranuloc 0.07 Normal (applies Immature [facility] ytes# {10^3_uL to non-numeric Granulocytes # Health } results) System NRBC# 0.00 Below low normal NRBC # [facility] {10^3_uL Health } System ID Date Data Source [id number] 03/26/2017 12:23:00 PM EDT [facility] System Name Value Range Interpretation Description Data Sup porting Code Source(s) Document(s ) Sodium 140 Normal (applies Sodium, Serum [facility] [Moles/volume mmol/L to non-numeric Health Syst em ] in Serum or results) Plasma Potassium 4.4 Normal (applies Potassium, [facility] [Mass/volume] mmol/L to non-numeric Serum Health Syst em in Serum or results) Plasma Previously released as 4.4 on 03/26/2017, 01:55 PM by [id number] - SLIGHT HEMOLYSIS IS PRESENT Chloride 107 mmol/L Normal (applies Chloride, Serum [facility] [Moles/volume] in to non-numeric Health System Serum or Plasma results) Carbon dioxide, total 23.0 mmol/L Normal (applies CO2, Serum [facility] [Moles/volume] in to non-numeric Health System Serum or Plasma results) TotalProtein 6.9 mg/dl Normal (applies Total Protein [facility] to non-numeric [facility] System results) Glucose [Mass/volume] 106 mg/dL Above high normal Glucose, S shirley [facility] in Serum or Plasma Health Syst em Urea nitrogen 10 mg/dl Normal (applies Blood Urea [facility] [Mass/volume] in Serum to non-numeric Nitrogen, Se rum Health System or Plasma results) Creatinine 0.70 mg/dl Normal (applies Creatinine, [facility] [Mass/volume] in Serum to non-numeric Serum He alth System or Plasma results) Alkaline phosphatase 100 {IU/L} Normal (applies Alkaline [facility] isoenzymes [Enzymatic to non-numeric Phosphatase, Health System activity/volume] in results) Serum Serum or Plasma by Heat stability Bilirubin.total 0.2 mg/dl Normal (applies Bilirubin, [facility] [Mass/volume] in Serum to non-numeric Serum Total Health System or Plasma results) DirectBilirubin 0.1 mg/dl Normal (applies Direct [facility] to non-numeric Bilirubin Health System results) Aspartate 20 {IU/L} Normal (applies Aspartate [facility] aminotransferase to non-numeric Transaminase, [facility] [Enzymatic results) Serum activity/volume] in Serum or Plasma by With P-5'-P Albumin [Mass/volume] 4.0 {gm/dl} Normal (applies Albumin, S shirley [facility] in Serum or Plasma to non-numeric Health System results) I.Phosphorus 2.4 mg/dl Below low normal I. Phosphorus [facility] Alanine 20 {IU/L} Normal (applies Alanine [facility] aminotransferase to non-numeric Aminotransferas alth System [Enzymatic results) e, Serum activity/volume] in Serum or Plasma Calcium [Mass/volume] 9.0 mg/dl Normal (applies Calcium, Tot al [facility] in Serum or Plasma to non-numeric Serum Health System results) A/GRatio 1.38 Normal (applies A/G Ratio [facility] to non-numeric Health System results) Urate [Mass/volume] in 5.0 mg/dl Normal (applies Uric Acid, [facility] Serum or Plasma to non-numeric Serum Health Sy stem results) Anion gap in Serum or 10.00 mmol/L Normal (applies Anion Gap [facility] Plasma to non-numeric Health System results) Glomerular filtration 88.14 Normal (applies GFR [facility] rate/1.73 sq to non-numeric Health Syste m M.predicted [Volume results) Rate/Area] in Serum or Plasma by Creatinine-based formula (CKD-EPI) eGFR will provide clinicians with a more accurate indicator of renal function then the serum creatinine. The eGFR is automa tically calculated from an empiric formula (endorsed by the [employer] ion) which incorporates age, sex, and race.Clinicians may notice surprisingly low GFR's with serum creatinine valueswithin normal range- particularly in elderly wo men (with low muscle mass).In the hospital setting, the eGFR should add an element of safety in drug dosing, in assessing the risk of IV contrast administration, and in assessing vascular risk.The NKF staging system is as follows:Normal: eGFR >90 with no kidney markersStage 1: eGFR >90 with kidney markers*Stage 2: eGFR 60- 89Stage 3: eGFR 30-59Stage 4: eGFR 15-29Stage 5: eGFR <15 (usually requir ing dialysis)*Markers include: Proteinuria, Hematuria, abnormal imaging-studies, or other blood or urine test abnormalities ID Date Data Source [id number] 03/26/2017 12:23:00 PM EDT [facility] System Name Value Range Interpretation Description Data Source(s ) Supporting Code Document(s ) Troponin 0.01 Normal (applies to Troponin I [facility] IQuantit ng/mL non-numeric Quantitative - Health System ative-MV results) MV Only Only ID Date Data Source [id number] 03/26/2017 12:23:00 PM EDT [facility] System Name Value Range Interpretation Description Data Source(s ) Supporting Code Document(s ) Lipase 16 U/L Normal (applies to Lipase, Serum [facility] [Enzymatic non-numeric Health System activity/vo results) lume] in Serum or Plasma ID Date Data Source [id number] 08/20/2017 03:02:00 PM EDT [facility] System Name Value Range Interpretation Description Data Sup porting Code Source(s) Document(s ) Leukocytes 13.2 Above high WBC Count [facility] [#/volume] in {10^3_uL normal Health Unspecified } System specimen by Automated count Erythrocytes 4.19 Normal (applies RBC Count [facility] [#/volume] in {10^6_uL to non-numeric Health Blood by } results) System Automated count Hemoglobin 12.2 Normal (applies Hemoglobin [facility] [Mass/volume] in {gm/dL} to non-numeric Health Blood results) System Hematocrit 36.9 % Normal (applies Hematocrit [facility] [Volume to non-numeric Health Fraction] of results) System Blood Erythrocyte mean 88.1 fl Normal (applies MCV [facility] corpuscular to non-numeric Health volume [Entitic results) System volume] by Automated count Erythrocyte mean 29.1 pg Normal (applies MCH [facility] corpuscular to non-numeric Health hemoglobin results) System [Entitic mass] by Automated count Erythrocyte mean 33.1 Normal (applies MCHC [facility] corpuscular {gm/dL} to non-numeric Health hemoglobin results) System concentration [Mass/volume] by Automated count Erythrocyte 15.0 % Above high RDW-CV [facility] distribution normal Health width [Entitic System volume] by Automated count Platelets 256 Normal (applies Platelet Count [facility] [#/volume] in {10^3_uL to non-numeric Health Plasma by } results) System Automated count Platelet mean 12.7 fl Above high MPV [facility] volume [Entitic normal Health volume] in Blood System by Automated count Monocytes 0.7 Normal (applies Monocyte # [facility] [#/volume] in {10^3_uL to non-numeric Health Blood by Manual } results) System count Eosinophils 0.26 Normal (applies Eosinophil # [facility] [#/volume] in {10^3_uL to non-numeric Health Blood } results) System Neutrophils 8.6 Above high Neutrophil # [facility] [#/volume] in {10^3_uL normal Health Body fluid } System Basophils 0.05 Normal (applies Basophil # [facility] [#/volume] in {10^3_uL to non-numeric Health Blood by } results) System Automated count Lymphocyte 3.4 Normal (applies Lymphocyte # [facility] percent {10^3_uL to non-numeric Health differential } results) System count (procedure) Neutrophils/100 65.5 % Normal (applies Neutrophil % [facility] n[facility] leukocytes in to non-numeric Health Blood by results) System Automated count Monocytes/100 5.4 % Below low normal Monocyte % [facility] leukocytes in Health Blood System Eosinophils/100 2.0 % Normal (applies Eosinophil % [facility] leukocytes in to non-numeric Health Unspecified results) System specimen Basophils/100 0.4 % Normal (applies Basophil % [facility] leukocytes in to non-numeric Health Unspecified results) System specimen by Manual count Lymphocytes 26.2 % Normal (applies Lymphocyte % [facility] [#/volume] in to non-numeric Health Blood by results) System Automated count ImmatureGranuloc 0.5 % Normal (applies Immature [facility] ytes% to non-numeric Granulocytes % Health results) System Nucleated 0.0 Normal (applies NRBC % [facility] erythrocytes {/100_WB to non-numeric Health [#/volume] in C} results) System Body fluid ImmatureGranuloc 0.06 Normal (applies Immature [facility] ytes# {10^3_uL to non-numeric Granulocytes # Health } results) System NRBC# 0.00 Below low normal NRBC # [facility] {10^3_uL Health } System ID Date Data Source [id number] 08/20/2017 03:02:00 PM EDT [facility] Name Value Range Interpretation Description Data Sup porting Code Source(s) Document(s ) Thyrotropin 1.292 Normal (applies Thyroid [facility] [Mass/volume] {mIU/mL} to non-numeric Stimulating Health Sy stem in Serum or results) Hormone, Serum Plasma ID Date Data Source [id number] 08/20/2017 03:02:00 PM EDT [facility] Name Value Range Interpretation Description Data Sup porting Code Source(s) Document(s ) Sodium 137 Normal (applies Sodium, Serum [facility] [Moles/volume mmol/L to non-numeric Health Syst em ] in Serum or results) Plasma Potassium 5.4 Above high normal Potassium, [facility] [Mass/volume] mmol/L Serum Health System in Serum or Plasma HEMOLYZED Chloride 104 mmol/L Normal (applies Chloride, Serum [facility] [Moles/volume] in to non-numeric Health System Serum or Plasma results) Carbon dioxide, total 19.0 mmol/L Below low normal CO2, Seru m [facility] [Moles/volume] in Health Syste m Serum or Plasma Glucose [Mass/volume] 254 mg/dL Above high normal Glucose, S shirley [facility] in Serum or Plasma Health Syst em Urea nitrogen 7 mg/dl Normal (applies Blood Urea [facility] [Mass/volume] in to non-numeric Nitrogen, Serum He alth System Serum or Plasma results) Creatinine 0.90 mg/dl Normal (applies Creatinine, [facility] [Mass/volume] in to non-numeric Serum Health S ystem Serum or Plasma results) Calcium [Mass/volume] 8.8 mg/dl Normal (applies Calcium, Tot al [facility] in Serum or Plasma to non-numeric Serum Health System results) Anion gap in Serum or 14.00 mmol/L Above high normal Anion G ap [facility] Plasma [facility] System ID Date Data Source [id number] 08/20/2017 03:02:00 PM EDT [facility] Name Value Range Interpretation Description Data Sup porting Code Source(s) Document(s ) Albumin 3.6 Below low normal Albumin, [facility] [Mass/volume] in {gm/dl} Serum Health Serum or Plasma System Bilirubin.total 0.2 Normal (applies Bilirubin, [facility] [Mass/volume] in mg/dl to non-numeric Serum Total Health Serum or Plasma results) System Aspartate 41 Above high Aspartate [facility] aminotransferase {IU/L} normal Transaminase, Health [Enzymatic Serum System activity/volume] in Serum or Plasma by With P-5'-P Alanine 23 Normal (applies Alanine [facility] aminotransferase {IU/L} to non-numeric Aminotransfer Heal th [Enzymatic results) ase, Serum System activity/volume] in Serum or Plasma Alkaline 95 Normal (applies Alkaline [facility] phosphatase {IU/L} to non-numeric Phosphatase, Health isoenzymes results) Serum System [Enzymatic activity/volume] in Serum or Plasma by Heat stability DirectBilirubin < 0.1 Normal (applies Direct [facility] to non-numeric Bilirubin Health results) System TotalProtein 7.0 Normal (applies Total Protein [facility] mg/dl to non-numeric Health results) System ID Date Data Source [id number] 08/20/2017 03:02:00 PM EDT [facility] Name Value Range Interpretation Description Data Source(s ) Supporting Code Document(s ) Troponin 0.00 Normal (applies to Troponin I [facility] IQuantit ng/mL non-numeric Quantitative - Health System ative-MV results) MV Only Only ID Date Data Source [id number] 08/20/2017 03:02:00 PM EDT [facility] Name Value Range Interpretation Description Data Sup porting Code Source(s) Document(s ) Creatine 40 {IU/L} Normal (applies Creatine [facility] kinase.MB to non-numeric Kinase, Serum Health Syst em [Mass/volume results) ] in Serum or Plasma ID Date Data Source [id number] 08/20/2017 04:10:00 PM EDT [facility] Name Value Range Interpretation Description Data Sup porting Code Source(s) Document(s ) Color YELLOW Normal (applies Color [facility] to non-numeric Health results) System Appearance of CLEAR Normal (applies Urine [facility] Urine to non-numeric Appearance Health results) System Specific gravity 1.010 Normal (applies Urine Specific [facility] of Urine to non-numeric [place] [facility] results) System pH.. 7.0 Normal (applies pH.. [facility] {pH_units} to non-numeric Health results) System Glucose,UA 100 mg/dl Normal (applies Glucose, UA [facility] to non-numeric Health results) System Protein NEGATIVE Normal (applies Protein [facility] [Mass/volume] in to non-numeric Health Serum or Plasma results) System BilirubinUrine NEGATIVE Normal (applies Bilirubin [facility] to non-numeric Urine Health results) System Urobilinogen 0.2 mg/dL Normal (applies Urobilinogen [facility] [Mass/volume] in to non-numeric UA Health Urine results) System Ketones NEGATIVE Normal (applies Ketones UA [facility] [Mass/volume] in to non-numeric Health Urine results) System Nitrate+Nitrite NEGATIVE Normal (applies Nitrite [facility] [Mass/volume] in to non-numeric Health Unspecified results) System specimen Leukocyte NEGATIVE Normal (applies Leukocyte [facility] esterase to non-numeric Esterase Health [Units/volume] results) Concentration System in Urine UrineBlood NEGATIVE Normal (applies Urine Blood [facility] to non-numeric Health results) System ID Date Data Source [id number] 02/04/2018 02:26:00 AM EDT [facility] System Name Value Range Interpretation Description Data Sup porting Code Source(s) Document(s ) Color YELLOW Normal (applies Color [facility] to non-numeric Health results) System Appearance of [place] CLOUDY Normal (applies Urine [facility] Urine to non-numeric Appearance Health results) System Specific gravity 1.010 Normal (applies Urine Specific [facility] of Urine to non-numeric [place] [facility] results) System pH.. 8.5 Above high pH.. [facility] {pH_units} normal Health System Glucose,UA NEGATIVE Normal (applies Glucose, UA [facility] to non-numeric Health results) System Protein NEGATIVE Normal (applies Protein [facility] [Mass/volume] in to non-numeric Health Serum or Plasma results) System BilirubinUrine NEGATIVE Normal (applies Bilirubin [facility] to non-numeric Urine Health results) System Urobilinogen 0.2 mg/dL Normal (applies Urobilinogen [facility] [Mass/volume] in to non-numeric [facility] Urine results) System Ketones 15 mg/dL Abnormal Ketones UA [facility] [Mass/volume] in (applies to Health Urine non-numeric System results) Nitrate+Nitrite NEGATIVE Normal (applies Nitrite [facility] [Mass/volume] in to non-numeric Health Unspecified results) System specimen Leukocyte NEGATIVE Normal (applies Leukocyte [facility] esterase to non-numeric Esterase Health [Units/volume] results) Concentration System in Urine Leukocytes 1 {/HPF} Normal (applies White Blood [facility] [#/volume] in to non-numeric Cells Health Unspecified results) System specimen by Automated count RedBloodCells 1 {/HPF} Normal (applies Red Blood [facility] to non-numeric Cells Health results) System UrineBlood NEGATIVE Normal (applies Urine Blood [facility] to non-numeric Health results) System ID Date Data Source [id number] 02/04/2018 02:26:00 AM EDT [facility] System Name Value Range Interpretation Description Data Sup porting Code Source(s) Document(s ) Leukocytes 13.6 Above high WBC Count [facility] [#/volume] in {10^3_uL normal Health Unspecified } System specimen by Automated count Erythrocytes 4.88 Normal (applies RBC Count [facility] [#/volume] in {10^6_uL to non-numeric Health Blood by } results) System Automated count Hemoglobin 13.7 Normal (applies Hemoglobin [facility] [Mass/volume] in {gm/dL} to non-numeric Health Blood results) System Hematocrit 41.5 % Normal (applies Hematocrit [facility] [Volume to non-numeric Health Fraction] of results) System Blood Erythrocyte mean 85.0 fl Normal (applies MCV [facility] corpuscular to non-numeric Health volume [Entitic results) System volume] by Automated count Erythrocyte mean 28.1 pg Normal (applies MCH [facility] corpuscular to non-numeric Health hemoglobin results) System [Entitic mass] by Automated count Erythrocyte mean 33.0 Normal (applies MCHC [facility] corpuscular {gm/dL} to non-numeric Health hemoglobin results) System concentration [Mass/volume] by Automated count Erythrocyte 14.6 % Above high RDW-CV [facility] distribution normal Health width [Entitic System volume] by Automated count Platelets 321 Normal (applies Platelet Count [facility] [#/volume] in {10^3_uL to non-numeric Health Plasma by } results) System Automated count Platelet mean 11.6 fl Above high MPV [facility] volume [Entitic normal Health volume] in Blood System by Automated count Monocytes 0.5 Normal (applies Monocyte # [facility] [#/volume] in {10^3_uL to non-numeric Health Blood by Manual } results) System count Eosinophils 0.08 Normal (applies Eosinophil # [facility] [#/volume] in {10^3_uL to non-numeric Health Blood } results) System Neutrophils 10.9 Above high Neutrophil # [facility] [#/volume] in {10^3_uL normal Health Body fluid } System Basophils 0.02 Normal (applies Basophil # [facility] [#/volume] in {10^3_uL to non-numeric Health Blood by } results) System Automated count Lymphocyte 2.0 Normal (applies Lymphocyte # [facility] percent {10^3_uL to non-numeric Health differential } results) System count (procedure) Neutrophils/100 80.4 % Above high Neutrophil % [facility] leukocytes in normal Health Blood by System Automated count Monocytes/100 3.8 % Below low normal Monocyte % [facility] leukocytes in Health Blood System Eosinophils/100 0.6 % Normal (applies Eosinophil % [facility] leukocytes in to non-numeric Health Unspecified results) System specimen Basophils/100 0.1 % Normal (applies Basophil % [facility] leukocytes in to non-numeric Health Unspecified results) System specimen by Manual count Lymphocytes 14.7 % Below low normal Lymphocyte % [facility] [#/volume] in Health Blood by System Automated count ImmatureGranuloc 0.4 % Normal (applies Immature [facility] ytes% to non-numeric Granulocytes % Health results) System Nucleated 0.0 Normal (applies NRBC % [facility] erythrocytes {/100_WB to non-numeric Health [#/volume] in C} results) System Body fluid ImmatureGranuloc 0.05 Normal (applies Immature [facility] ytes# {10^3_uL to non-numeric Granulocytes # Health } results) System NRBC# 0.00 Below low normal NRBC # [facility] {10^3_uL Health } System ID Date Data Source [id number] 02/04/2018 02:26:00 AM EDT [facility] Name Value Range Interpretation Description Data Sup porting Code Source(s) Document(s ) Sodium 138 Normal (applies Sodium, Serum [facility] [Moles/volume] in mmol/L to non-numeric Health Serum or Plasma results) System Potassium 4.3 Normal (applies Potassium, [facility] [Mass/volume] in mmol/L to non-numeric Serum Health Serum or Plasma results) System Chloride 102 Normal (applies Chloride, [facility] [Moles/volume] in mmol/L to non-numeric Serum Health Serum or Plasma results) System Carbon dioxide, 23.0 Normal (applies CO2, Serum [facility] total mmol/L to non-numeric Health [Moles/volume] in results) System Serum or Plasma TotalProtein 7.3 Normal (applies Total Protein [facility] mg/dl to non-numeric Health results) System Glucose 145 Above high Glucose, [facility] [Mass/volume] in mg/dL normal Serum Health Serum or Plasma System Urea nitrogen 9 mg/dl Normal (applies Blood Urea [facility] [Mass/volume] in to non-numeric Nitrogen, Health Serum or Plasma results) Serum System Creatinine 0.70 Normal (applies Creatinine, [facility] [Mass/volume] in mg/dl to non-numeric Serum Health Serum or Plasma results) System Alkaline 110 Normal (applies Alkaline [facility] phosphatase {IU/L} to non-numeric Phosphatase, Health isoenzymes results) Serum System [Enzymatic activity/volume] in Serum or Plasma by Heat stability Bilirubin.total 0.3 Normal (applies Bilirubin, [facility] [Mass/volume] in mg/dl to non-numeric Serum Total Health Serum or Plasma results) System DirectBilirubin 0.1 Normal (applies Direct [facility] mg/dl to non-numeric Bilirubin Health results) System Aspartate 28 Normal (applies Aspartate [facility] aminotransferase {IU/L} to non-numeric Transaminase, Heal th [Enzymatic results) Serum System activity/volume] in Serum or Plasma by With P-5'-P Albumin 4.1 Normal (applies Albumin, [facility] [Mass/volume] in {gm/dl} to non-numeric Serum Health Serum or Plasma results) System I.Phosphorus 2.3 Below low normal I. Phosphorus [facility] mg/dl [facility] System Alanine 28 Normal (applies Alanine [facility] aminotransferase {IU/L} to non-numeric Aminotransfer Heal th [Enzymatic results) ase, Serum System activity/volume] in Serum or Plasma Calcium 9.3 Normal (applies Calcium, [facility] [Mass/volume] in mg/dl to non-numeric Total Serum Health Serum or Plasma results) System A/GRatio 1.28 Normal (applies A/G Ratio [facility] to non-numeric Health results) System Urate 5.7 Normal (applies Uric Acid, [facility] [Mass/volume] in mg/dl to non-numeric Serum Health Serum or Plasma results) System Anion gap in Serum 13.00 Above high Anion Gap [facility] or Plasma mmol/L normal Health System Glomerular 87.84 Normal (applies GFR [facility] filtration to non-numeric Health rate/1.73 sq results) System M.predicted [Volume Rate/Area] in Serum or Plasma by Creatinine-based formula (CKD-EPI) eGFR will provide clinicians with a more accurate indicator of renal function then the serum creatinine. The eGFR is automa tically calculated from an empiric formula (endorsed by the [employer] ion) which incorporates age, sex, and race.Clinicians may notice surprisingly low GFR's with serum creatinine valueswithin normal range- particularly in elderly wo men (with low muscle mass).In the hospital setting, the eGFR should add an element of safety in drug dosing, in assessing the risk of IV contrast administration, and in assessing vascular risk.The NKF staging system is as follows:Normal: eGFR >90 with no kidney markersStage 1: eGFR >90 with kidney markers*Stage 2: eGFR 60- 89Stage 3: eGFR 30-59Stage 4: eGFR 15-29Stage 5: eGFR <15 (usually requir ing dialysis)*Markers include: Proteinuria, Hematuria, abnormal imaging-studies, or other blood or urine test abnormalities ID Date Data Source [id number] 02/04/2018 02:26:00 AM EDT [facility] System Name Value Range Interpretation Code Description Data Sierra rce(s) Supporting Document(s ) Lipase 8 U/L Normal (applies to Lipase, Serum [facility] [Enzymatic non-numeric Health System activity/vo results) lume] in Serum or Plasma ID Date Data Source [id number] 02/04/2018 02:26:00 AM EDT [facility] System Name Value Range Interpretation Description Data Sup porting Code Source(s) Document(s ) Amylase 42 {IU/L} Normal (applies to Amylase, Serum [facility] [Enzymatic non-numeric Health System activity/vo results) lume] in Serum or Plasma ID Date Data Source [id number] 09/21/2018 07:56:00 PM EDT [facility] Name Value Range Interpretation Description Data Sup porting Code Source(s) Document(s ) Leukocytes 11.9 Above high WBC Count [facility] [#/volume] in {10^3_uL normal Health Unspecified } System specimen by Automated count Erythrocytes 4.69 Normal (applies RBC Count [facility] [#/volume] in {10^6_uL to non-numeric Health Blood by } results) System Automated count Hemoglobin 13.0 Normal (applies Hemoglobin [facility] [Mass/volume] in {gm/dL} to non-numeric Health Blood results) System Hematocrit 41.2 % Normal (applies Hematocrit [facility] [Volume to non-numeric Health Fraction] of results) System Blood Erythrocyte mean 87.8 fl Normal (applies MCV [facility] corpuscular to non-numeric Health volume [Entitic results) System volume] by Automated count Erythrocyte mean 27.7 pg Normal (applies MCH [facility] corpuscular to non-numeric Health hemoglobin results) System [Entitic mass] by Automated count Erythrocyte mean 31.6 Below low normal MCHC [facility] corpuscular {gm/dL} Health hemoglobin System concentration [Mass/volume] by Automated count Erythrocyte 16.3 % Above high RDW-CV [facility] distribution normal Health width [Entitic System volume] by Automated count Platelets 255 Normal (applies Platelet Count [facility] [#/volume] in {10^3_uL to non-numeric Health Plasma by } results) System Automated count Platelet mean 11.3 fl Above high MPV [facility] volume [Entitic normal Health volume] in Blood System by Automated count Monocytes 0.8 Normal (applies Monocyte # [facility] [#/volume] in {10^3_uL to non-numeric Health Blood by Manual } results) System count Eosinophils 0.26 Normal (applies Eosinophil # [facility] [#/volume] in {10^3_uL to non-numeric Health Blood } results) System Neutrophils 7.8 Normal (applies Neutrophil # [facility] [#/volume] in {10^3_uL to non-numeric Health Body fluid } results) System Basophils 0.04 Normal (applies Basophil # [facility] [#/volume] in {10^3_uL to non-numeric Health Blood by } results) System Automated count Lymphocyte 3.0 Normal (applies Lymphocyte # [facility] percent {10^3_uL to non-numeric Health differential } results) System count (procedure) Neutrophils/100 65.4 % Normal (applies Neutrophil % [facility] n[facility] leukocytes in to non-numeric Health Blood by results) System Automated count Monocytes/100 6.5 % Normal (applies Monocyte % [facility] leukocytes in to non-numeric Health Blood results) System Eosinophils/100 2.2 % Normal (applies Eosinophil % [facility] leukocytes in to non-numeric Health Unspecified results) System specimen Basophils/100 0.3 % Normal (applies Basophil % [facility] leukocytes in to non-numeric Health Unspecified results) System specimen by Manual count Lymphocytes 25.3 % Normal (applies Lymphocyte % [facility] [#/volume] in to non-numeric Health Blood by results) System Automated count ImmatureGranuloc 0.3 % Normal (applies Immature [facility] ytes% to non-numeric Granulocytes % Health results) System Nucleated 0.0 Normal (applies NRBC % [facility] erythrocytes {/100_WB to non-numeric Health [#/volume] in C} results) System Body fluid ImmatureGranuloc 0.04 Normal (applies Immature [facility] ytes# {10^3_uL to non-numeric Granulocytes # Health } results) System NRBC# 0.00 Below low normal NRBC # [facility] {10^3_uL Health } System ID Date Data Source [id number] 09/21/2018 07:56:00 PM EDT [facility] System Name Value Range Interpretation Description Data Sup porting Code Source(s) Document(s ) Sodium 141 Normal (applies Sodium, Serum [facility] [Moles/volume] in mmol/L to non-numeric Health Serum or Plasma results) System Potassium 4.1 Normal (applies Potassium, [facility] [Mass/volume] in mmol/L to non-numeric Serum Health Serum or Plasma results) System Chloride 107 Normal (applies Chloride, [facility] [Moles/volume] in mmol/L to non-numeric Serum Health Serum or Plasma results) System Carbon dioxide, 21.0 Below low normal CO2, Serum [facility] total mmol/L Health [Moles/volume] in System Serum or Plasma TotalProtein 7.3 Normal (applies Total Protein [facility] mg/dl to non-numeric Health results) System Glucose 102 Normal (applies Glucose, [facility] [Mass/volume] in mg/dL to non-numeric Serum Health Serum or Plasma results) System Urea nitrogen 16 Normal (applies Blood Urea [facility] [Mass/volume] in mg/dl to non-numeric Nitrogen, Health Serum or Plasma results) Serum System Creatinine 0.70 Normal (applies Creatinine, [facility] [Mass/volume] in mg/dl to non-numeric Serum Health Serum or Plasma results) System Alkaline 100 Normal (applies Alkaline [facility] phosphatase {IU/L} to non-numeric Phosphatase, Health isoenzymes results) Serum System [Enzymatic activity/volume] in Serum or Plasma by Heat stability Bilirubin.total 0.2 Normal (applies Bilirubin, [facility] [Mass/volume] in mg/dl to non-numeric Serum Total Health Serum or Plasma results) System DirectBilirubin 0.1 Normal (applies Direct [facility] mg/dl to non-numeric Bilirubin Health results) System Aspartate 18 Normal (applies Aspartate [facility] aminotransferase {IU/L} to non-numeric Transaminase, Heal th [Enzymatic results) Serum System activity/volume] in Serum or Plasma by With P-5'-P Albumin 4.3 Normal (applies Albumin, [facility] [Mass/volume] in {gm/dl} to non-numeric Serum Health Serum or Plasma results) System I.Phosphorus 3.2 Normal (applies I. Phosphorus [facility] mg/dl to non-numeric Health results) System Alanine 25 Normal (applies Alanine [facility] aminotransferase {IU/L} to non-numeric Aminotransfer Heal th [Enzymatic results) ase, Serum System activity/volume] in Serum or Plasma Calcium 9.4 Normal (applies Calcium, [facility] [Mass/volume] in mg/dl to non-numeric Total Serum Health Serum or Plasma results) System A/GRatio 1.43 Normal (applies A/G Ratio [facility] to non-numeric Health results) System Urate 4.0 Normal (applies Uric Acid, [facility] [Mass/volume] in mg/dl to non-numeric Serum Health Serum or Plasma results) System Anion gap in Serum 13.00 Above high Anion Gap [facility] or Plasma mmol/L normal Health System Glomerular 87.63 Normal (applies GFR [facility] filtration to non-numeric Health rate/1.73 sq results) System M.predicted [Volume Rate/Area] in Serum or Plasma by Creatinine-based formula (CKD-EPI) eGFR will provide clinicians with a more accurate indicator of renal function then the serum creatinine. The eGFR is automa tically calculated from an empiric formula (endorsed by the National Kidney [employer] ion) which incorporates age, sex, and race.Clinicians may notice surprisingly low GFR's with serum creatinine valueswithin normal range- particularly in elderly wo men (with low muscle mass).In the hospital setting, the eGFR should add an element of safety in drug dosing, in assessing the risk of IV contrast administration, and in assessing vascular risk.The NKF staging system is as follows:Normal: eGFR >90 with no kidney markersStage 1: eGFR >90 with kidney markers*Stage 2: eGFR 60- 89Stage 3: eGFR 30-59Stage 4: eGFR 15-29Stage 5: eGFR <15 (usually requir ing dialysis)*Markers include: Proteinuria, Hematuria, abnormal imaging-studies, or other blood or urine test abnormalities ID Date Data Source [id number] 09/21/2018 07:56:00 PM EDT [facility] Name Value Range Interpretation Description Data Source(s ) Supporting Code Document(s ) Troponin 0.00 Normal (applies to Troponin I [facility] IQuantit ng/mL non-numeric Quantitative - Health System ative-MV results) MV Only Only ID Date Data Source [id number] 09/21/2018 07:56:00 PM EDT [facility] Name Value Range Interpretation Description Data Source(s ) Supporting Code Document(s ) MVD-Dime 0.30 Normal (applies to MV D-Dimer High [facility] n[facility] rHighSen {mg/L_FEU non-numeric Sensitivity Health System sitivity } results) Cut-off value for diagnosis of DVT with the INNOVANCE D-dimer assay was established at 0.5 mg/L FEU. A D-dimer result <0.50 mg/L FEU is considered negative and a D-dimer result >0.50 mg/L FEU is considered posi tive. ID Date Data Source [id number] 09/21/2018 07:56:00 PM EDT [facility] Name Value Range Interpretation Description Data Sup porting Code Source(s) Document(s ) Creatine 44 {IU/L} Normal (applies Creatine [facility] kinase.MB to non-numeric Kinase, Serum Health Syst em [Mass/volume results) ] in Serum or Plasma ID Date Data Source [id number] 01/07/2019 07:26:00 PM EST [facility] Name Value Range Interpretation Description Data Sup porting Code Source(s) Document(s ) Influenza virus Positive Abnormal Flu A Viral [facility] A RNA [Presence] (applies to RNA Health in Unspecified non-numeric System specimen by results) Probe and target amplification method Influenza virus Negative Normal (applies Flu B Viral [facility] B RNA [Presence] to non-numeric RNA Health in Unspecified results) System specimen by Probe and target amplification method ID Date Data Source [id number] 01/07/2019 07:36:00 PM EST [facility] Name Value Range Interpretation Description Data Sup porting Code Source(s) Document(s ) StrepGroupADirectAnt Negative Normal (applies Strep Group [facility] igen to non-numeric A Direct Health results) Antigen System Method: ImmunochromatographicRapid Strep Grp A preliminary test only!!! Final result will be confirmed by culture. ID Date Data Source [id number] 03/20/2019 11:55:00 AM EDT [facility] Name Value Range Interpretation Description Data Sup porting Code Source(s) Document(s ) Carcinoembryonic 0.5 Normal (applies Carcinoembryonic [facility] antigen to non-numeric Antigen Health measurement results) System (procedure) CEA Reference range for smokers is <5.0 ng/mL.This test was performed using the Siemens chemiluminescent method. Values obtained from differentassay methods cannot be used interchangeably. CEA leve ls,regardless of value, should not be interpreted as absoluteevidence of the p resence or absence of disease.Test Performed at:[facility], [place], [place] Kodi Loya M.D. ID Date Data Source [id number] 03/20/2019 11:55:00 AM EDT [facility] System Name Value Range Interpretation Description Data Sup porting Code Source(s) Document(s ) Lutropin 22.20 Normal (applies Luteinizing [facility] [Units/volum {mIU/mL} to non-numeric Hormone, Serum Health System e] in Serum results) or Plasma Reference RangeFemaleFollicular Phase: 1.9-12.5Midcycle Peak: 8.7-76.3Luteal Phase: 0.5-16.9Postmenopausal: 10 .0-54.7Test Performed at:[facility], [facility] [place] [address]XsrecggvLuis Loya M.D. ID Date Data Source [id number] 03/20/2019 11:55:00 AM EDWill ricardo System Name Value Range Interpretation Description Data Sup porting Code Source(s) Document(s ) Follitropin 33.3 Normal (applies Follicle [facility] [Mass/volume] {mIU/mL} to non-numeric Stimulating Health Sy stem in Serum or results) Hormone, Serum Plasma Reference RangeFemaleFollicular Phase: 2.5-10.2Midcycle Peak: 3.1-17.7Luteal Phase: 1.5- 9.1Postmenopausal: 2 3.0-116.3Test Performed at:[facility] [place], [place] [address]MkhdowtwLuis Loya M.D. ID Date Data Source [id number] 03/20/2019 11:55:00 AM EDWill [facility] Name Value Range Interpretation Description Data Sup porting Code Source(s) Document(s ) Leukocytes 11.9 Above high WBC Count [facility] [#/volume] in {10^3_uL normal Health Unspecified } System specimen by Automated count Erythrocytes 4.56 Normal (applies RBC Count [facility] [#/volume] in {10^6_uL to non-numeric Health Blood by } results) System Automated count Hemoglobin 13.1 Normal (applies Hemoglobin [facility] [Mass/volume] in {gm/dL} to non-numeric Health Blood results) System Hematocrit 40.8 % Normal (applies Hematocrit [facility] [Volume to non-numeric Health Fraction] of results) System Blood Erythrocyte mean 89.5 fl Normal (applies MCV [facility] corpuscular to non-numeric Health volume [Entitic results) System volume] by Automated count Erythrocyte mean 28.7 pg Normal (applies MCH [facility] corpuscular to non-numeric Health hemoglobin results) System [Entitic mass] by Automated count Erythrocyte mean 32.1 Below low normal [facility]C [facility] corpuscular {gm/dL} Health hemoglobin System concentration [Mass/volume] by Automated count Erythrocyte 14.7 % Above high RDW-CV [facility] distribution normal Health width [Entitic System volume] by Automated count Platelets 302 Normal (applies Platelet Count [facility] [#/volume] in {10^3_uL to non-numeric Health Plasma by } results) System Automated count Platelet mean 11.6 fl Above high MPV [facility] volume [Entitic normal Health volume] in Blood System by Automated count Monocytes 0.8 Normal (applies Monocyte # [facility] [#/volume] in {10^3_uL to non-numeric Health Blood by Manual } results) System count Eosinophils 0.20 Normal (applies Eosinophil # [facility] [#/volume] in {10^3_uL to non-numeric Health Blood } results) System Neutrophils 7.4 Normal (applies Neutrophil # [facility] [#/volume] in {10^3_uL to non-numeric Health Body fluid } results) System Basophils 0.04 Normal (applies Basophil # [facility] [#/volume] in {10^3_uL to non-numeric Health Blood by } results) System Automated count Lymphocyte 3.5 Normal (applies Lymphocyte # [facility] percent {10^3_uL to non-numeric Health differential } results) System count (procedure) Neutrophils/100 61.5 % Normal (applies Neutrophil % [facility] leukocytes in to non-numeric Health Blood by results) System Automated count Monocytes/100 7.0 % Normal (applies Monocyte % [facility] leukocytes in to non-numeric Health Blood results) System Eosinophils/100 1.7 % Normal (applies Eosinophil % [facility] leukocytes in to non-numeric Health Unspecified results) System specimen Basophils/100 0.3 % Normal (applies Basophil % [facility] leukocytes in to non-numeric Health Unspecified results) System specimen by Manual count Lymphocytes 29.1 % Normal (applies Lymphocyte % [facility] [#/volume] in to non-numeric Health Blood by results) System Automated count ImmatureGranuloc 0.4 % Normal (applies Immature [facility] ytes% to non-numeric Granulocytes % Health results) System Nucleated 0.0 Normal (applies NRBC % [facility] erythrocytes {/100_WB to non-numeric Health [#/volume] in C} results) System Body fluid ImmatureGranuloc 0.05 Normal (applies Immature [facility] ytes# {10^3_uL to non-numeric Granulocytes # Health } results) System NRBC# 0.00 Below low normal NRBC # [facility] {10^3_uL Health } System ID Date Data Source [id number] 03/20/2019 11:55:00 AM EDT [facility] Name Value Range Interpretation Description Data Sup porting Code Source(s) Document(s ) Thyrotropin 1.889 Normal (applies Thyroid [facility] [Mass/volume] {mIU/mL} to non-numeric Stimulating Health Sy stem in Serum or results) Hormone, Serum Plasma ID Date Data Source [id number] 03/20/2019 11:55:00 AM EDT [facility] System Name Value Range Interpretation Description Data Sup porting Code Source(s) Document(s ) Triglyceride 220 Above high normal Triglycerides, [facility] [Mass/volume] mg/dl Serum Health in Serum or System Plasma Optimal = < 100 mg/dLBoderline High = 15 0 - 199 mg/dLHigh = 200 - 499 mg/dLVery High = > 500 mg/dL Cholesterol 187 mg/dl Normal (applies Cholesterol, Serum [facility] [Mass/volume] in to non-numeric Health S ystem Serum or Plasma results) <200 mg/dL = Qrzvivqog130 - 239 md/dL = Borderline>240 mg/dL = High Risk Cholesterol in HDL 44.0 mg/dL Normal (applies HDL Cholestero l, [facility] [Mass/volume] in to non-numeric Serum Health S yste Serum or Plasma results) Cholesterol in LDL 99 mg/dL Normal (applies Low Density [facility] [Mass/volume] in to non-numeric Lipoprotein, Healt h System Serum or Plasma results) Calculated OPTIMAL: LESS THAN 100 mg/dLNEAR OPTIMAL : 100 - 129 mg/dLBODERLINE HIGH: 130 - 150 mg/dL Cholesterol in VLDL 44 Normal (applies to VLDL, Serum [facility] [Mass/volume] in Serum non-numeric results) System or Plasma CHDRisk 4.25 Normal (applies to CHD Risk [facility] non-numeric results) System ID Date Data Source [id number] 03/20/2019 11:55:00 AM EDT [facility] System Name Value Range Interpretation Description Data Sup porting Code Source(s) Document(s ) Sodium 139 Normal (applies Sodium, Serum [facility] [Moles/volume] in mmol/L to non-numeric Health Serum or Plasma results) System Potassium 3.9 Normal (applies Potassium, [facility] [Mass/volume] in mmol/L to non-numeric Serum Health Serum or Plasma results) System Chloride 104 Normal (applies Chloride, [facility] [Moles/volume] in mmol/L to non-numeric Serum Health Serum or Plasma results) System Carbon dioxide, 24.0 Normal (applies CO2, Serum [facility] total mmol/L to non-numeric Health [Moles/volume] in results) System Serum or Plasma TotalProtein 7.3 Normal (applies Total Protein [facility] mg/dl to non-numeric Health results) System Glucose 84 Normal (applies Glucose, [facility] [Mass/volume] in mg/dL to non-numeric Serum Health Serum or Plasma results) System Urea nitrogen 13 Normal (applies Blood Urea [facility] [Mass/volume] in mg/dl to non-numeric Nitrogen, Health Serum or Plasma results) Serum System Creatinine 0.70 Normal (applies Creatinine, [facility] [Mass/volume] in mg/dl to non-numeric Serum Health Serum or Plasma results) System Alkaline 96 Normal (applies Alkaline [facility] phosphatase {IU/L} to non-numeric Phosphatase, Health isoenzymes results) Serum System [Enzymatic activity/volume] in Serum or Plasma by Heat stability Bilirubin.total 0.2 Normal (applies Bilirubin, [facility] [Mass/volume] in mg/dl to non-numeric Serum Total Health Serum or Plasma results) System DirectBilirubin 0.1 Normal (applies Direct [facility] mg/dl to non-numeric Bilirubin Health results) System Aspartate 21 Normal (applies Aspartate [facility] aminotransferase {IU/L} to non-numeric Transaminase, Heal th [Enzymatic results) Serum System activity/volume] in Serum or Plasma by With P-5'-P Albumin 4.2 Normal (applies Albumin, [facility] [Mass/volume] in {gm/dl} to non-numeric Serum Health Serum or Plasma results) System I.Phosphorus 4.2 Normal (applies I. Phosphorus [facility] mg/dl to non-numeric Health results) System Alanine 23 Normal (applies Alanine [facility] aminotransferase {IU/L} to non-numeric Aminotransfer Heal th [Enzymatic results) ase, Serum System activity/volume] in Serum or Plasma Calcium 9.9 Normal (applies Calcium, [facility] [Mass/volume] in mg/dl to non-numeric Total Serum Health Serum or Plasma results) System A/GRatio 1.35 Normal (applies A/G Ratio [facility] to non-numeric Health results) System Urate 5.0 Normal (applies Uric Acid, [facility] [Mass/volume] in mg/dl to non-numeric Serum Health Serum or Plasma results) System Anion gap in Serum 11.00 Normal (applies Anion Gap [facility] n[facility] or Plasma mmol/L to non-numeric Health results) System Glomerular 87.46 Normal (applies GFR [facility] filtration to non-numeric Health rate/1.73 sq results) System M.predicted [Volume Rate/Area] in Serum or Plasma by Creatinine-based formula (CKD-EPI) eGFR will provide clinicians with a more accurate indicator of renal function then the serum creatinine. The eGFR is automa tically calculated from an empiric formula (endorsed by the National Kidney Foundat ion) which incorporates age, sex, and race.Clinicians may notice surprisingly low GFR's with serum creatinine valueswithin normal range- particularly in elderly wo men (with low muscle mass).In the hospital setting, the eGFR should add an element of safety in drug dosing, in assessing the risk of IV contrast administration, and in assessing vascular risk.The NKF staging system is as follows:Normal: eGFR >90 with no kidney markersStage 1: eGFR >90 with kidney markers*Stage 2: eGFR 60- 89Stage 3: eGFR 30-59Stage 4: eGFR 15-29Stage 5: eGFR <15 (usually requir ing dialysis)*Markers include: Proteinuria, Hematuria, abnormal imaging-studies, or other blood or urine test abnormalities ID Date Data Source [id number] 03/20/2019 11:55:00 AM EDT [facility] System Name Value Range Interpretation Description Data Sup porting Code Source(s) Document(s ) Quantif NegativeNegative Normal (applies Quantiferon-T [facility] fatuma-TB test result. M. to non-numeric B Gold. Health Gold. tuberculosis results) System complex infectionunlikely. NIL 0.03 {IU/mL} Normal (applies NIL [facility] to non-numeric Health results) System Mitogen 7.56 {IU/mL} Normal (applies Mitogen-NIL [facility] -NIL to non-numeric Health results) System TB1-NIL < 0.00 Normal (applies TB1-NIL [facility] to non-numeric Health results) System TB2-NIL < 0.00 Normal (applies TB2-NIL [facility] to non-numeric Health results) System The Nil tube value reflects the backgrou nd interferongamma immune response of the patient's blood sample.This value has be en subtracted from the patient'sdisplayed TB and Mitogen results.Lower than expected results with the Mitogen tube prevent false-negative Quantiferon readings byde tecting a patient with a potential immunesuppressive condition and/or subop timal pre-analyticalspecimen handling.The TB1 Antigen tube is coated with theM. tuberc ulosis-specific antigens designed to elicitresponses from TB antigen primed C D4+ helperT-lymphocytes.The TB2 Antigen tube is coated with theM. tuberculosis-specif ic antigens designed to elicitresponses from TB antigen primed CD4+ helper and CD8+cy totoxic T-lymphocytes.For additional information, please refer [email or web address] tion.quest[employer].com/faq/204(This link is being provided for informational/educ ational purposes only.)Test Performed at:[facility] [employer], [place], [place] [address]Luis Loya M.D. ID Date Data Source [id number] 03/20/2019 12:55:00 PM EDT [facility] Name Value Range Interpretation Code Description Data [facility] rce(s) Supporting Document(s ) [id number] 178.65 Normal (applies to [id number] [facility] non-numeric results) Health Sy stem tHbWB 3603.05 Normal (applies to tHbWB [facility] non-numeric results) Health Sy stem %HbA1C 6.69 % Above high normal %HbA1C [facility] ID Date Data Source [id number] 07/05/2019 01:40:00 PM EDT [facility] Name Value Range Interpretation Description Data Sup porting Code Source(s) Document(s ) Leukocytes 14.2 Above high WBC Count [facility] [#/volume] in {10^3_uL normal Health Unspecified } System specimen by Automated count Erythrocytes 4.44 Normal (applies RBC Count [facility] [#/volume] in {10^6_uL to non-numeric Health Blood by } results) System Automated count Hemoglobin 12.6 Normal (applies Hemoglobin [facility] [Mass/volume] in {gm/dL} to non-numeric Health Blood results) System Hematocrit 38.8 % Normal (applies Hematocrit [facility] [Volume to non-numeric Health Fraction] of results) System Blood Erythrocyte mean 87.4 fl Normal (applies MCV [facility] corpuscular to non-numeric Health volume [Entitic results) System volume] by Automated count Erythrocyte mean 28.4 pg Normal (applies MCH [facility] corpuscular to non-numeric Health hemoglobin results) System [Entitic mass] by Automated count Erythrocyte mean 32.5 Below low normal [facility] corpuscular {gm/dL} Health hemoglobin System concentration [Mass/volume] by Automated count Erythrocyte 14.5 % Normal (applies RDW-CV [facility] distribution to non-numeric Health width [Entitic results) System volume] by Automated count Platelets 287 Normal (applies Platelet Count [facility] [#/volume] in {10^3_uL to non-numeric Health Plasma by } results) System Automated count Platelet mean 11.7 fl Above high MPV [facility] volume [Entitic normal Health volume] in Blood System by Automated count Monocytes 0.8 Normal (applies Monocyte # [facility] [#/volume] in {10^3_uL to non-numeric Health Blood by Manual } results) System count Eosinophils 0.20 Normal (applies Eosinophil # [facility] [#/volume] in {10^3_uL to non-numeric Health Blood } results) System Neutrophils 9.8 Above high Neutrophil # [facility] [#/volume] in {10^3_uL normal Health Body fluid } System Basophils 0.04 Normal (applies Basophil # [facility] [#/volume] in {10^3_uL to non-numeric Health Blood by } results) System Automated count Lymphocyte 3.3 Normal (applies Lymphocyte # [facility] percent {10^3_uL to non-numeric Health differential } results) System count (procedure) Neutrophils/100 68.9 % Normal (applies Neutrophil % [facility] leukocytes in to non-numeric Health Blood by results) System Automated count Monocytes/100 5.6 % Below low normal Monocyte % [facility] leukocytes in Health Blood System Eosinophils/100 1.4 % Normal (applies Eosinophil % [place] [facility] leukocytes in to non-numeric Health Unspecified results) System specimen Basophils/100 0.3 % Normal (applies Basophil % [facility] leukocytes in to non-numeric Health Unspecified results) System specimen by Manual count Lymphocytes 23.5 % Normal (applies Lymphocyte % [facility] [#/volume] in to non-numeric Health Blood by results) System Automated count ImmatureGranuloc 0.3 % Normal (applies Immature [facility] ytes% to non-numeric Granulocytes % Health results) System Nucleated 0.0 Normal (applies NRBC % [facility] erythrocytes {/100_WB to non-numeric Health [#/volume] in C} results) System Body fluid ImmatureGranuloc 0.04 Normal (applies Immature [facility] ytes# {10^3_uL to non-numeric Granulocytes # Health } results) System NRBC# 0.00 Below low normal NRBC # [facility] {10^3_uL Health } System ID Date Data Source [id number] 07/15/2019 10:00:33 AM EDT [facility]th System Name Value Range Interpretation Description Data Sup porting Code Source(s) Document(s ) TissueExam Results for case # Normal (applies Tissue Exam [facility] [id number] to non-numeric Health SURGICAL PATHOLOGY results) System REPORTCLINICAL INFORMATION: Post menopausal bleeding. PREOPERATIVE DIAGNOSIS: Same. 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 ID Date Data Source [id number] 08/07/2019 09:50:00 AM EDT [facility] Name Value Range Interpretation Description Data Sup porting Code Source(s) Document(s ) Leukocytes 13.4 Above high WBC Count [facility] [#/volume] in {10^3_uL normal Health Unspecified } System specimen by Automated count Erythrocytes 4.54 Normal (applies RBC Count [facility] [#/volume] in {10^6_uL to non-numeric Health Blood by } results) System Automated count Hemoglobin 12.6 Normal (applies Hemoglobin [facility] [Mass/volume] in {gm/dL} to non-numeric Health Blood results) System Hematocrit 39.9 % Normal (applies Hematocrit [facility] [Volume to non-numeric Health Fraction] of results) System Blood Erythrocyte mean 87.9 fl Normal (applies MCV [facility] corpuscular to non-numeric Health volume [Entitic results) System volume] by Automated count Erythrocyte mean 27.8 pg Normal (applies MCH [facility] corpuscular to non-numeric Health hemoglobin results) System [Entitic mass] by Automated count Erythrocyte mean 31.6 Below low normal MCHC [facility] corpuscular {gm/dL} Health hemoglobin System concentration [Mass/volume] by Automated count Erythrocyte 14.6 % Above high RDW-CV [facility] distribution normal Health width [Entitic System volume] by Automated count Platelets 342 Normal (applies Platelet Count [facility] [#/volume] in {10^3_uL to non-numeric Health Plasma by } results) System Automated count Platelet mean 12.1 fl Above high MPV [facility] volume [Entitic normal Health volume] in Blood System by Automated count Monocytes 0.6 Normal (applies Monocyte # [facility] [#/volume] in {10^3_uL to non-numeric Health Blood by Manual } results) System count Eosinophils 0.18 Normal (applies Eosinophil # [facility] [#/volume] in {10^3_uL to non-numeric Health Blood } results) System Neutrophils 9.4 Above high Neutrophil # [facility] [#/volume] in {10^3_uL normal Health Body fluid } System Basophils 0.04 Normal (applies Basophil # [facility] [#/volume] in {10^3_uL to non-numeric Health Blood by } results) System Automated count Lymphocyte 3.2 Normal (applies Lymphocyte # [facility] percent {10^3_uL to non-numeric Health differential } results) System count (procedure) Neutrophils/100 69.7 % Normal (applies Neutrophil % [place] [facility] leukocytes in to non-numeric Health Blood by results) System Automated count Monocytes/100 4.1 % Below low normal Monocyte % [facility] leukocytes in Health Blood System Eosinophils/100 1.3 % Normal (applies Eosinophil % [place] [facility] leukocytes in to non-numeric Health Unspecified results) System specimen Basophils/100 0.3 % Normal (applies Basophil % [facility] leukocytes in to non-numeric Health Unspecified results) System specimen by Manual count Lymphocytes 24.1 % Normal (applies Lymphocyte % [facility] [#/volume] in to non-numeric Health Blood by results) System Automated count ImmatureGranuloc 0.5 % Normal (applies Immature [facility] ytes% to non-numeric Granulocytes % Health results) System Nucleated 0.0 Normal (applies NRBC % [facility] erythrocytes {/100_WB to non-numeric Health [#/volume] in C} results) System Body fluid ImmatureGranuloc 0.07 Normal (applies Immature [facility] ytes# {10^3_uL to non-numeric Granulocytes # Health } results) System NRBC# 0.00 Below low normal NRBC # [facility] {10^3_uL Health } System ID Date Data Source [id number] 08/07/2019 09:50:00 AM EDT [facility] System Name Value Range Interpretation Description Data Sup porting Code Source(s) Document(s ) Sodium 137 Normal (applies Sodium, Serum [facility] [Moles/volume mmol/L to non-numeric Health Syst em ] in Serum or results) Plasma Potassium 4.6 Normal (applies Potassium, [facility] [Mass/volume] mmol/L to non-numeric Serum Health Syst em in Serum or results) Plasma Chloride 103 Normal (applies Chloride, [facility] [Moles/volume mmol/L to non-numeric Serum Health Syst em ] in Serum or results) Plasma Carbon 23.0 Normal (applies CO2, Serum [facility] dioxide, mmol/L to non-numeric Health System total results) [Moles/volume ] in Serum or Plasma Glucose 269 Above high normal Glucose, Serum [facility] [Mass/volume] mg/dL Health System in Serum or Plasma Urea nitrogen 8 mg/dl Normal (applies Blood Urea [facility] [Mass/volume] to non-numeric Nitrogen, Health Syst em in Serum or results) Serum Plasma Creatinine 0.80 Normal (applies Creatinine, [facility] [Mass/volume] mg/dl to non-numeric Serum Health Syst em in Serum or results) Plasma Calcium 9.3 Normal (applies Calcium, Total [facility] [Mass/volume] mg/dl to non-numeric Serum Health Syst em in Serum or results) Plasma Anion gap in 11.00 Normal (applies Anion Gap [facility] Serum or mmol/L to non-numeric Health System Plasma results) ID Date Data Source [id number] 09/21/2019 02:33:18 AM EDT [facility] System Name Value Range Interpretation Description Data Sup porting Code Source(s) Document(s ) TissueExam Results for case # Normal (applies Tissue Exam [facility] [id number] to non-numeric [facility] SURGICAL PATHOLOGY results) System REPORTCLINICAL INFORMATION: History of colon cancer.PREOPERATIV E DIAGNOSIS: Same. POSTOPERATIVE DIAGNOSIS: Diverticulosis, polyps, hemorrhoids. FINAL DIAGNOSIS: A: Colon, descending, polypectomy:Tubul ar adenoma.B: Colon, transverse, biopsy:Diminutive tubular adenoma.C: Colon, sigmoid, biopsy:Colonic mucosa with a lymphoid aggregate (additional levels examined).DJ/stDANA RYDER MDElectronically Signed By: GROSS DESCRIPTION: A: In formalin, labeled "polyp descending colon", the specimen consists of a 0.2 x 0.2 x 0.2cm [place] polyp which is inked at the resection margin and entirely submitted in one cassette. B: In formalin, labeled "biopsy transverse colon", the specimen consists of a 0.2 x 0.1 x 0.1cm [place] soft tissue which is submitted in toto in one cassette. C: In formalin, labeled "biopsy sigmoid colon", the specimen consists of a 0.3 x 0.1 x 0.1cm austin soft tissue which is submitted in toto in one cassette.MV/stPage 2 of 2Testing performed at [facility], [address] [place] [address]. ID Date Data Source [id number] 01/11/2015 08:15:00 PM [facility] System Name Value Range Interpretation Description Data Sup porting Code Source(s) Document(s ) Specific gravity 1.010 Normal (applies Urine Specific [facility] of Urine to non-numeric [facility] results) System Appearance of CLEAR Normal (applies Urine [facility] Urine to non-numeric Appearance Health results) System Color YELLOW Normal (applies Color [facility] to non-numeric Health results) System pH.. 7.5 Normal (applies pH.. [facility] {pH_units} to non-numeric Health results) System BilirubinUrine NEGATIVE Normal (applies Bilirubin [facility] to non-numeric Urine Health results) System Protein NEGATIVE Normal (applies Protein [facility] [Mass/volume] in to non-numeric Health Serum or Plasma results) System Glucose,UA NEGATIVE Normal (applies Glucose, UA [facility] to non-numeric Health results) System Urobilinogen 0.2 mg/dL Normal (applies Urobilinogen [facility] [Mass/volume] in to non-numeric UA Health Urine results) System UrineBlood NEGATIVE Normal (applies Urine Blood [facility] to non-numeric Health results) System Ketones NEGATIVE Normal (applies Ketones UA [facility] [Mass/volume] in to non-numeric Health Urine results) System Nitrate+Nitrite NEGATIVE Normal (applies Nitrite [facility] [Mass/volume] in to non-numeric Health Unspecified results) System specimen Leukocyte NEGATIVE Normal (applies Leukocyte [facility] esterase to non-numeric Esterase Health [Units/volume] results) Concentration System in Urine ID Date Data Source [id number] 01/11/2015 08:15:00 PM EST [facility] System Name Value Range Interpretation Description Data Sup porting Code Source(s) Document(s ) Leukocytes 16.9 10 Above high normal WBC Count [facility] [#/volume] in Health Unspecified System specimen by Automated count Hematocrit 37.4 % Normal (applies Hematocrit [facility] [Volume to non-numeric Health Fraction] of results) System Blood Hemoglobin 12.2 Normal (applies Hemoglobin [facility] [Mass/volume] in {gm/dL} to non-numeric Health Blood results) System Erythrocytes 4.45 10 Normal (applies RBC Count [facility] [#/volume] in to non-numeric Health Blood by results) System Automated count Erythrocyte mean 32.6 Below low normal [facility] corpuscular {gm/dL} Health hemoglobin System concentration [Mass/volume] by Automated count Erythrocyte mean 84.0 fl Normal (applies MCV [facility] corpuscular to non-numeric Health volume [Entitic results) System volume] by Automated count Erythrocyte 18.1 % Above high normal RDW-CV [facility] distribution Health width [Entitic System volume] by Automated count Erythrocyte mean 27.4 pg Normal (applies MCH [facility] corpuscular to non-numeric Health hemoglobin results) System [Entitic mass] by Automated count Platelet mean 11.3 fl Above high normal MPV [facility] volume [Entitic Health volume] in Blood System by Automated count Neutrophils 13.8 10 Above high normal Neutrophil # [facility] [#/volume] in Health Body fluid System Platelets 321 10 Normal (applies Platelet [facility] [#/volume] in to non-numeric Count Health Plasma by results) System Automated count Monocytes 0.8 10 Normal (applies Monocyte # [facility] [#/volume] in to non-numeric Health Blood by Manual results) System count Eosinophils 0.11 10 Normal (applies Eosinophil # [facility] [#/volume] in to non-numeric Health Blood results) System Monocytes/100 4.5 % Below low normal Monocyte % [facility] leukocytes in Health Blood System Lymphocyte 2.2 10 Normal (applies Lymphocyte # [facility] percent to non-numeric Health differential results) System count (procedure) Neutrophils/100 81.5 % Normal (applies Neutrophil % [facility] leukocytes in to non-numeric Health Blood by results) System Automated count Basophils 0.02 10 Normal (applies Basophil # [facility] [#/volume] in to non-numeric Health Blood by results) System Automated count Eosinophils/100 0.7 % Below low normal Eosinophil % [facility] leukocytes in Health Unspecified System specimen Lymphocytes 13.2 % Below low normal Lymphocyte % [facility] [#/volume] in Health Blood by System Automated count Basophils/100 0.1 % Normal (applies Basophil % [facility] leukocytes in to non-numeric Health Unspecified results) System specimen by Manual count ID Date Data Source [id number] 01/11/2015 08:15:00 PM EST [facility] System Name Value Range Interpretation Description Data Sup porting Code Source(s) Document(s ) HCGQualitative NEGATIVE Normal (applies HCG [facility] to non-numeric Qualitative Health results) System Default Normal RangesNegative <5Indeterm inate 5-25(Please repeat in 2 days.)Positive >25 ID Date Data Source [id number] 01/11/2015 08:15:00 PM EST [facility] System Name Value Range Interpretation Description Data Sup porting Code Source(s) Document(s ) Potassium 4.9 Normal (applies Potassium, [facility] [Mass/volume] in mmol/L to non-numeric Serum Health Serum or Plasma results) System Sodium 134 Below low normal Sodium, Serum [facility] [Moles/volume] in mmol/L Health Serum or Plasma System Carbon dioxide, 22.0 Normal (applies CO2, Serum [facility] total mmol/L to non-numeric Health [Moles/volume] in results) System Serum or Plasma TotalProtein 7.4 Normal (applies Total Protein [facility] mg/dl to non-numeric Health results) System Glucose 102 Normal (applies Glucose, [facility] [Mass/volume] in mg/dL to non-numeric Serum Health Serum or Plasma results) System Chloride 101 Normal (applies Chloride, [facility] [Moles/volume] in mmol/L to non-numeric Serum Health Serum or Plasma results) System Alkaline 103 Normal (applies Alkaline [facility] phosphatase {IU/L} to non-numeric Phosphatase, Health isoenzymes results) Serum System [Enzymatic activity/volume] in Serum or Plasma by Heat stability Urea nitrogen 9 mg/dl Normal (applies Blood Urea [facility] [Mass/volume] in to non-numeric Nitrogen, Health Serum or Plasma results) Serum System Bilirubin.total 0.2 Normal (applies Bilirubin, [facility] [Mass/volume] in mg/dl to non-numeric Serum Total Health Serum or Plasma results) System Creatinine 0.60 Below low normal Creatinine, [facility] [Mass/volume] in mg/dl Serum Health Serum or Plasma System DirectBilirubin 0.1 Normal (applies Direct [facility] mg/dl to non-numeric Bilirubin Health results) System Albumin 4.1 Normal (applies Albumin, [facility] [Mass/volume] in {gm/dl} to non-numeric Serum Health Serum or Plasma results) System I.Phosphorus 4.1 Normal (applies I. Phosphorus [facility] mg/dl to non-numeric Health results) System Aspartate 24 Normal (applies Aspartate [facility] aminotransferase {IU/L} to non-numeric Transaminase, Heal th [Enzymatic results) Serum System activity/volume] in Serum or Plasma by With P-5'-P A/GRatio 1.24 Normal (applies A/G Ratio [facility] to non-numeric Health results) System Calcium 10.0 Normal (applies Calcium, [facility] [Mass/volume] in mg/dl to non-numeric Total Serum Health Serum or Plasma results) System Alanine 19 Normal (applies Alanine [facility] aminotransferase {IU/L} to non-numeric Aminotransfer Heal th [Enzymatic results) ase, Serum System activity/volume] in Serum or Plasma Urate 4.0 Normal (applies Uric Acid, [facility] [Mass/volume] in mg/dl to non-numeric Serum Health Serum or Plasma results) System Anion gap in Serum 11.00 Normal (applies Anion Gap [facility] n[facility] or Plasma mmol/L to non-numeric Health results) System Glomerular > 90 Normal (applies GFR [facility] filtration to non-numeric Health rate/1.73 sq results) System M.predicted [Volume Rate/Area] in Serum or Plasma by Creatinine-based formula (CKD-EPI) eGFR will provide clinicians with a more accurate indicator of renal function then the serum creatinine. The eGFR is automa tically calculated from an empiric formula (endorsed by the National Kid[employer] ion) which incorporates age, sex, and race.Clinicians may notice surprisingly low GFR's with serum creatinine valueswithin normal range- particularly in elderly wo men (with low muscle mass).In the hospital setting, the eGFR should add an element of safety in drug dosing, in assessing the risk of IV contrast administration, and in assessing vascular risk.The NKF staging system is as follows:Normal: eGFR >90 with no kidney markersStage 1: eGFR >90 with kidney markers*Stage 2: eGFR 60- 89Stage 3: eGFR 30-59Stage 4: eGFR 15-29Stage 5: eGFR <15 (usually requir ing dialysis)*Markers include: Proteinuria, Hematuria, abnormal imaging-studies, or other blood or urine test abnormalities ID Date Data Source [id number] 01/11/2015 08:15:00 PM EST [facility] System Name Value Range Interpretation Description Data Source(s ) Supporting Code Document(s ) Lipase 14 U/L Normal (applies to Lipase, Serum [facility] [Enzymatic non-numeric Health System activity/vo results) lume] in Serum or Plasma ID Date Data Source [id number] 01/12/2015 03:18:00 AM EST [facility] System Name Value Range Interpretation Description Data Sup porting Code Source(s) Document(s ) Bacteria NO GROWTH Culture [facility] identified in Bacteria Blood Health Syst em Blood by Aer[facility] culture ID Date Data Source [id number] 01/12/2015 03:18:00 AM EST [facility] System Name Value Range Interpretation Description Data Sup porting Code Source(s) Document(s ) Bacteria NO GROWTH Culture [facility] identified in Bacteria Blood Health Syst em Blood by [facility] culture ID Date Data Source [id number] 01/12/2015 04:20:00 AM EST [facility] System Name Value Range Interpretation Description Data Source(s ) Supporting Code Document(s ) Blood,Oc Negative Normal (applies to Blood, Occult [facility] cultFece non-numeric Feces Health System s results) ID Date Data Source [id number] 01/12/2015 04:20:00 AM EST [facility] System Name Value Range Interpretation Description Data Sup porting Code Source(s) Document(s ) Sodium 138 Normal (applies Sodium, Serum [facility] [Moles/volume] in mmol/L to non-numeric Health Serum or Plasma results) System Potassium 4.3 Normal (applies Potassium, [facility] [Mass/volume] in mmol/L to non-numeric Serum Health Serum or Plasma results) System Carbon dioxide, 22.0 Normal (applies CO2, Serum [facility] total mmol/L to non-numeric Health [Moles/volume] in results) System Serum or Plasma Chloride 105 Normal (applies Chloride, [facility] [Moles/volume] in mmol/L to non-numeric Serum Health Serum or Plasma results) System TotalProtein 6.6 Normal (applies Total Protein [facility] mg/dl to non-numeric Health results) System Glucose 114 Above high Glucose, [facility] [Mass/volume] in mg/dL normal Serum Health Serum or Plasma System Urea nitrogen 5 mg/dl Below low normal Blood Urea [facility] [Mass/volume] in Nitrogen, Health Serum or Plasma Serum System Creatinine 0.60 Below low normal Creatinine, [facility] [Mass/volume] in mg/dl Serum Health Serum or Plasma System Bilirubin.total 0.3 Normal (applies Bilirubin, [facility] [Mass/volume] in mg/dl to non-numeric Serum Total Health Serum or Plasma results) System Alkaline 92 Normal (applies Alkaline [facility] phosphatase {IU/L} to non-numeric Phosphatase, Health isoenzymes results) Serum System [Enzymatic activity/volume] in Serum or Plasma by Heat stability DirectBilirubin 0.1 Normal (applies Direct [facility] mg/dl to non-numeric Bilirubin Health results) System Aspartate 14 Normal (applies Aspartate [facility] aminotransferase {IU/L} to non-numeric Transaminase, Heal th [Enzymatic results) Serum System activity/volume] in Serum or Plasma by With P-5'-P Albumin 3.7 Below low normal Albumin, [facility] [Mass/volume] in {gm/dl} Serum Health Serum or Plasma System Alanine 16 Normal (applies Alanine [facility] aminotransferase {IU/L} to non-numeric Aminotransfer Heal th [Enzymatic results) ase, Serum System activity/volume] in Serum or Plasma I.Phosphorus 3.1 Normal (applies I. Phosphorus [facility] mg/dl to non-numeric Health results) System A/GRatio 1.28 Normal (applies A/G Ratio [facility] to non-numeric Health results) System Anion gap in Serum 11.00 Normal (applies Anion Gap [facility] nydia or Plasma mmol/L to non-numeric Health results) System Calcium 9.0 Normal (applies Calcium, [facility] [Mass/volume] in mg/dl to non-numeric Total Serum Health Serum or Plasma results) System Urate 3.9 Normal (applies Uric Acid, [facility] [Mass/volume] in mg/dl to non-numeric Serum Health Serum or Plasma results) System Glomerular > 90 Normal (applies GFR [facility] filtration to non-numeric Health rate/1.73 sq results) System M.predicted [Volume Rate/Area] in Serum or Plasma by Creatinine-based formula (CKD-EPI) eGFR will provide clinicians with a more accurate indicator of renal function then the serum creatinine. The eGFR is automa tically calculated from an empiric formula (endorsed by the [employer] ion) which incorporates age, sex, and race.Clinicians may notice surprisingly low GFR's with serum creatinine valueswithin normal range- particularly in elderly wo men (with low muscle mass).In the hospital setting, the eGFR should add an element of safety in drug dosing, in assessing the risk of IV contrast administration, and in assessing vascular risk.The NKF staging system is as follows:Normal: eGFR >90 with no kidney markersStage 1: eGFR >90 with kidney markers*Stage 2: eGFR 60- 89Stage 3: eGFR 30-59Stage 4: eGFR 15-29Stage 5: eGFR <15 (usually requir ing dialysis)*Markers include: Proteinuria, Hematuria, abnormal imaging-studies, or other blood or urine test abnormalities ID Date Data Source [id number] 01/12/2015 04:20:00 AM EST [facility] System Name Value Range Interpretation Description Data Sup porting Code Source(s) Document(s ) Cholesterol 168 Normal (applies Cholesterol, [facility] [Mass/volume] mg/dl to non-numeric Serum Health Syst em in Serum or results) Plasma <200 mg/dL = [id number] - 239 md/dL = Borderline>240 mg/dL = High Risk Triglyceride 85 mg/dl Normal (applies Triglycerides, Serum [facility] [Mass/volume] in to non-numeric Health S ystem Serum or Plasma results) Optimal = < 100 mg/dLBoderline High = 15 0 - 199 mg/dLHigh = 200 - 499 mg/dLVery High = > 500 mg/dL Cholesterol in VLDL 17 Normal (applies to VLDL, Serum [facility] [Mass/volume] in non-numeric Health Syst em Serum or Plasma results) Cholesterol in LDL 111 mg/dL Normal (applies to Low Density [facility] [Mass/volume] in non-numeric Lipoprotein, Health S ystem Serum or Plasma results) Calculated OPTIMAL: LESS THAN 100 mg/dLNEAR OPTIMAL : 100 - 129 mg/dLBODERLINE HIGH: 130 - 150 mg/dL Cholesterol in HDL 40.0 mg/dL Normal (applies HDL Cholestero l, [facility] [Mass/volume] in to non-numeric Serum Health S ystem Serum or Plasma results) CHDRisk 4.20 Normal (applies CHD Risk [facility] to non-numeric Health System results) ID Date Data Source [id number] 01/12/2015 04:20:00 AM EST [facility] System Name Value Range Interpretation Description Data Source(s ) Supporting Code Document(s ) LacticAc 0.73 Normal (applies to Lactic Acid, [facility] id,Plasm {mEq/L} non-numeric Plasma *[facility] a*[facility] results) [place] ONLY* ERNONONL Y* ID Date Data Source [id number] 01/12/2015 04:20:00 AM EST [facility] Name Value Range Interpretation Code Description Data Sierra rce(s) Supporting Document(s ) HbA1C 5.7 % Normal (applies to HbA1C [facility] non-numeric results) System ID Date Data Source [id number] 01/12/2015 09:55:53 AM EST [facility] Name Value Range Interpretation Description Data Sup porting Code Source(s) Document(s ) Leukocytes 15.5 10 Above high normal WBC Count [facility] [#/volume] in Health Unspecified System specimen by Automated count Hemoglobin 11.2 Below low normal Hemoglobin [facility] [Mass/volume] in {gm/dL} Health Blood System Erythrocytes 4.14 10 Normal (applies RBC Count [facility] [#/volume] in to non-numeric Health Blood by results) System Automated count Hematocrit 34.7 % Below low normal Hematocrit [facility] [Volume Health Fraction] of System Blood Erythrocyte mean 27.1 pg Normal (applies MCH [facility] corpuscular to non-numeric Health hemoglobin results) System [Entitic mass] by Automated count Erythrocyte mean 83.8 fl Normal (applies MCV [facility] corpuscular to non-numeric Health volume [Entitic results) System volume] by Automated count Erythrocyte mean 32.3 Below low normal MCHC [facility] corpuscular {gm/dL} Health hemoglobin System concentration [Mass/volume] by Automated count Platelet mean 11.4 fl Above high normal MPV [facility] volume [Entitic Health volume] in Blood System by Automated count Platelets 304 10 Normal (applies Platelet [facility] [#/volume] in to non-numeric Count Health Plasma by results) System Automated count Erythrocyte 18.1 % Above high normal RDW-CV [facility] distribution Health width [Entitic System volume] by Automated count Monocytes 0.5 10 Normal (applies Monocyte # [facility] [#/volume] in to non-numeric Health Blood by Manual results) System count Neutrophils 12.7 10 Above high normal Neutrophil # [facility] [#/volume] in Health Body fluid System Eosinophils 0.06 10 Normal (applies Eosinophil # [facility] [#/volume] in to non-numeric Health Blood results) System Lymphocyte 2.2 10 Normal (applies Lymphocyte # [facility] percent to non-numeric Health differential results) System count (procedure) Monocytes/100 3.3 % Below low normal Monocyte % [facility] leukocytes in Health Blood System Basophils 0.02 10 Normal (applies Basophil # [facility] [#/volume] in to non-numeric Health Blood by results) System Automated count Neutrophils/100 82.1 % Normal (applies Neutrophil % [place] leukocytes in to non-numeric Health Blood by results) System Automated count Basophils/100 0.1 % Normal (applies Basophil % [facility] leukocytes in to non-numeric Health Unspecified results) System specimen by Manual count Lymphocytes 14.1 % Below low normal Lymphocyte % [facility] [#/volume] in Health Blood by System Automated count Eosinophils/100 0.4 % Below low normal Eosinophil % [facility] leukocytes in Health Unspecified System specimen ID Date Data Source [id number] 01/13/2015 06:00:00 AM EST [facility] Name Value Range Interpretation Description Data Sup porting Code Source(s) Document(s ) Type O Normal (applies Type [facility] to non-numeric Health results) System D Ab [Titer] in Positive Normal (applies Rh [facility] Serum or Plasma to non-numeric Health results) System AntibodyScreen Negative Normal (applies Antibody [facility] to non-numeric Screen Health results) System ID Date Data Source [id number] 01/13/2015 06:00:00 AM EST [facility] Name Value Range Interpretation Description Data Sup porting Code Source(s) Document(s ) Carcinoembryonic 1.5 Normal (applies Carcinoembryonic [facility] antigen to non-numeric Antigen Health measurement results) System (procedure) CEA Reference range for smokers is <5.0 ng/mL. This test was performed using the Siemens (ecomom) chemilumines cent method. Values obtained from different assay methods cannot be used inter changeably. CEA levels, regardless of value, should not be inter preted as absolute evidence of the presence or absence of disease. Test Pe rformed at: [facility] [employer], [place] [address] Kane M.D. ID Date Data Source [id number] 01/13/2015 06:00:00 AM EST [facility] Name Value Range Interpretation Description Data Sup porting Code Source(s) Document(s ) Leukocytes 12.2 10 Above high normal WBC Count [facility] [#/volume] in Health Unspecified System specimen by Automated count Hemoglobin 11.6 Below low normal Hemoglobin [facility] [Mass/volume] in {gm/dL} Health Blood System Erythrocytes 4.26 10 Normal (applies RBC Count [facility] [#/volume] in to non-numeric Health Blood by results) System Automated count Hematocrit 36.3 % Normal (applies Hematocrit [facility] [Volume to non-numeric Health Fraction] of results) System Blood Erythrocyte mean 85.2 fl Normal (applies MCV [facility] corpuscular to non-numeric Health volume [Entitic results) System volume] by Automated count Erythrocyte mean 32.0 Below low normal MCHC [facility] corpuscular {gm/dL} Health hemoglobin System concentration [Mass/volume] by Automated count Erythrocyte mean 27.2 pg Normal (applies MCH [facility] corpuscular to non-numeric Health hemoglobin results) System [Entitic mass] by Automated count Erythrocyte 18.4 % Above high normal RDW-CV [facility] distribution Health width [Entitic System volume] by Automated count Platelets 297 10 Normal (applies Platelet [facility] [#/volume] in to non-numeric Count Health Plasma by results) System Automated count Platelet mean 11.4 fl Above high normal MPV [facility] volume [Entitic Health volume] in Blood System by Automated count Monocytes 0.6 10 Normal (applies Monocyte # [facility] [#/volume] in to non-numeric Health Blood by Manual results) System count Neutrophils 8.7 10 Above high normal Neutrophil # [facility] [#/volume] in Health Body fluid System Eosinophils 0.17 10 Normal (applies Eosinophil # [facility] [#/volume] in to non-numeric Health Blood results) System Basophils 0.02 10 Normal (applies Basophil # [facility] [#/volume] in to non-numeric Health Blood by results) System Automated count Lymphocyte 2.7 10 Normal (applies Lymphocyte # [facility] percent to non-numeric Health differential results) System count (procedure) Neutrophils/100 71.3 % Normal (applies Neutrophil % [place] leukocytes in to non-numeric Health Blood by results) System Automated count Basophils/100 0.2 % Normal (applies Basophil % [facility] leukocytes in to non-numeric Health Unspecified results) System specimen by Manual count Eosinophils/100 1.4 % Normal (applies Eosinophil % [place] leukocytes in to non-numeric Health Unspecified results) System specimen Monocytes/100 5.0 % Below low normal Monocyte % [facility] leukocytes in Health Blood System Lymphocytes 22.1 % Normal (applies Lymphocyte % [facility] [#/volume] in to non-numeric Health Blood by results) System Automated count ID Date Data Source [id number] 01/13/2015 06:00:00 AM EST [facility] Name Value Range Interpretation Description Data Sup porting Code Source(s) Document(s ) Sodium 139 Normal (applies Sodium, Serum [facility] [Moles/volume] in mmol/L to non-numeric Health Serum or Plasma results) System Carbon dioxide, 25.0 Normal (applies CO2, Serum [facility] total mmol/L to non-numeric Health [Moles/volume] in results) System Serum or Plasma Potassium 4.4 Normal (applies Potassium, [facility] [Mass/volume] in mmol/L to non-numeric Serum Health Serum or Plasma results) System Chloride 105 Normal (applies Chloride, [facility] [Moles/volume] in mmol/L to non-numeric Serum Health Serum or Plasma results) System TotalProtein 6.0 Below low normal Total Protein [facility] mg/dl Health System Glucose 70 Normal (applies Glucose, [facility] [Mass/volume] in mg/dL to non-numeric Serum Health Serum or Plasma results) System Creatinine 0.70 Normal (applies Creatinine, [facility] [Mass/volume] in mg/dl to non-numeric Serum Health Serum or Plasma results) System Urea nitrogen 6 mg/dl Below low normal Blood Urea [facility] [Mass/volume] in Nitrogen, Health Serum or Plasma Serum System Alkaline 83 Normal (applies Alkaline [facility] phosphatase {IU/L} to non-numeric Phosphatase, Health isoenzymes results) Serum System [Enzymatic activity/volume] in Serum or Plasma by Heat stability DirectBilirubin 0.1 Normal (applies Direct [facility] mg/dl to non-numeric Bilirubin Health results) System Bilirubin.total 0.2 Normal (applies Bilirubin, [facility] [Mass/volume] in mg/dl to non-numeric Serum Total Health Serum or Plasma results) System Albumin 3.5 Below low normal Albumin, [facility] [Mass/volume] in {gm/dl} Serum Health Serum or Plasma System Aspartate 14 Normal (applies Aspartate [facility] aminotransferase {IU/L} to non-numeric Transaminase, Heal th [Enzymatic results) Serum System activity/volume] in Serum or Plasma by With P-5'-P I.Phosphorus 3.8 Normal (applies I. Phosphorus [facility] mg/dl to non-numeric Health results) System Alanine 13 Normal (applies Alanine [facility] aminotransferase {IU/L} to non-numeric Aminotransfer Heal th [Enzymatic results) ase, Serum System activity/volume] in Serum or Plasma Calcium 8.9 Normal (applies Calcium, [facility] [Mass/volume] in mg/dl to non-numeric Total Serum Health Serum or Plasma results) System Urate 4.7 Normal (applies Uric Acid, [facility] [Mass/volume] in mg/dl to non-numeric Serum Health Serum or Plasma results) System Anion gap in Serum 9.00 Normal (applies Anion Gap [place] or Plasma mmol/L to non-numeric Health results) System A/GRatio 1.40 Normal (applies A/G Ratio [facility] to non-numeric Health results) System Glomerular 88.93 Normal (applies GFR [facility] filtration to non-numeric Health rate/1.73 sq results) System M.predicted [Volume Rate/Area] in Serum or Plasma by Creatinine-based formula (CKD-EPI) eGFR will provide clinicians with a more accurate indicator of renal function then the serum creatinine. The eGFR is automa tically calculated from an empiric formula (endorsed by the National Kidney [employer] ion) which incorporates age, sex, and race.Clinicians may notice surprisingly low GFR's with serum creatinine valueswithin normal range- particularly in elderly wo men (with low muscle mass).In the hospital setting, the eGFR should add an element of safety in drug dosing, in assessing the risk of IV contrast administration, and in assessing vascular risk.The NKF staging system is as follows:Normal: eGFR >90 with no kidney markersStage 1: eGFR >90 with kidney markers*Stage 2: eGFR 60- 89Stage 3: eGFR 30-59Stage 4: eGFR 15-29Stage 5: eGFR <15 (usually requir ing dialysis)*Markers include: Proteinuria, Hematuria, abnormal imaging-studies, or other blood or urine test abnormalities ID Date Data Source [id number] 01/13/2015 06:00:00 AM EST [facility] Name Value Range Interpretation Description Data Sup porting Code Source(s) Document(s ) Transferrin 275.0 Normal (applies Transferrin, [facility] [Mass/volume] mg/dl to non-numeric Serum Health Syst em in Serum or results) Plasma ID Date Data Source [id number] 01/13/2015 06:00:00 AM EST [facility] Name Value Range Interpretation Description Data Source(s ) Supporting Code Document(s ) Iron 38 ug/dL Normal (applies to Iron, Serum [facility] [Mass/volum non-numeric Health System e] in Serum results) or Plasma ID Date Data Source [id number] 01/13/2015 06:00:00 AM EST [facility] Name Value Range Interpretation Description Data Sup porting Code Source(s) Document(s ) Iron/Iron 326.00 Normal (applies to Total Iron [facility] binding ug/dL non-numeric Binding Health System capacity.to results) Capacity-(RO) hector [Mass Ratio] in Serum or Plasma Iron. 38 Below low normal Iron. [facility] {mcg/dL} Health System Test Performed at: [facility] , [place] [address] Sharifa Pires M.D. %Saturation 12.00 % Below low normal % Saturation [facility] Test Performed at: [facility] , [place] [address] Sharifa Pires M.D. ID Date Data Source [id number] 01/13/2015 06:00:00 AM EST [facility] Name Value Range Interpretation Description Data Sup porting Code Source(s) Document(s ) Ferritin 16.8 Normal (applies Ferritin, [facility] [Mass/volume ng/ml to non-numeric Serum Health Syste m ] in Serum results) or Plasma ID Date Data Source [id number] 01/14/2015 06:00:00 AM EST [facility] Name Value Range Interpretation Description Data Sup porting Code Source(s) Document(s ) Leukocytes 10.8 10 Normal (applies WBC Count [facility] [#/volume] in to non-numeric Health Unspecified results) System specimen by Automated count Hemoglobin 11.2 Below low normal Hemoglobin [facility] [Mass/volume] in {gm/dL} Health Blood System Erythrocytes 4.07 10 Normal (applies RBC Count [facility] [#/volume] in to non-numeric Health Blood by results) System Automated count Erythrocyte mean 85.0 fl Normal (applies MCV [facility] corpuscular to non-numeric Health volume [Entitic results) System volume] by Automated count Erythrocyte mean 27.5 pg Normal (applies MCH [facility] corpuscular to non-numeric Health hemoglobin results) System [Entitic mass] by Automated count Hematocrit 34.6 % Below low normal Hematocrit [facility] [Volume Health Fraction] of System Blood Erythrocyte 18.0 % Above high normal RDW-CV [facility] distribution Health width [Entitic System volume] by Automated count Erythrocyte mean 32.4 Below low normal MCHC [facility] corpuscular {gm/dL} Health hemoglobin System concentration [Mass/volume] by Automated count Platelet mean 11.2 fl Above high normal MPV [facility] volume [Entitic Health volume] in Blood System by Automated count Platelets 283 10 Normal (applies Platelet [facility] [#/volume] in to non-numeric Count Health Plasma by results) System Automated count Eosinophils 0.25 10 Normal (applies Eosinophil # [facility] [#/volume] in to non-numeric Health Blood results) System Monocytes 0.6 10 Normal (applies Monocyte # [facility] [#/volume] in to non-numeric Health Blood by Manual results) System count Neutrophils 7.4 10 Normal (applies Neutrophil # [facility] [#/volume] in to non-numeric Health Body fluid results) System Basophils 0.02 10 Normal (applies Basophil # [facility] [#/volume] in to non-numeric Health Blood by results) System Automated count Lymphocyte 2.5 10 Normal (applies Lymphocyte # [facility] percent to non-numeric Health differential results) System count (procedure) Neutrophils/100 68.8 % Normal (applies Neutrophil % [place] leukocytes in to non-numeric Health Blood by results) System Automated count Monocytes/100 5.3 % Below low normal Monocyte % [facility] leukocytes in Health Blood System Basophils/100 0.2 % Normal (applies Basophil % [facility] leukocytes in to non-numeric Health Unspecified results) System specimen by Manual count Eosinophils/100 2.3 % Normal (applies Eosinophil % [place] leukocytes in to non-numeric Health Unspecified results) System specimen Lymphocytes 23.4 % Normal (applies Lymphocyte % [facility] [#/volume] in to non-numeric Health Blood by results) System Automated count ID Date Data Source [id number] 01/14/2015 06:00:00 AM EST [facility] Name Value Range Interpretation Description Data Sup porting Code Source(s) Document(s ) Sodium 139 Normal (applies Sodium, Serum [facility] [Moles/volume] in mmol/L to non-numeric Health Serum or Plasma results) System Potassium 4.1 Normal (applies Potassium, [facility] [Mass/volume] in mmol/L to non-numeric Serum Health Serum or Plasma results) System Chloride 109 Above high Chloride, [facility] [Moles/volume] in mmol/L normal Serum Health Serum or Plasma System TotalProtein 5.7 Below low normal Total Protein [facility] mg/dl Health System Glucose 92 Normal (applies Glucose, [facility] [Mass/volume] in mg/dL to non-numeric Serum Health Serum or Plasma results) System Carbon dioxide, 23.0 Normal (applies CO2, Serum [facility] total mmol/L to non-numeric Health [Moles/volume] in results) System Serum or Plasma Urea nitrogen 4 mg/dl Below low normal Blood Urea [facility] [Mass/volume] in Nitrogen, Health Serum or Plasma Serum System Creatinine 0.60 Below low normal Creatinine, [facility] [Mass/volume] in mg/dl Serum Health Serum or Plasma System Alkaline 76 Normal (applies Alkaline [facility] phosphatase {IU/L} to non-numeric Phosphatase, Health isoenzymes results) Serum System [Enzymatic activity/volume] in Serum or Plasma by Heat stability Bilirubin.total 0.1 Below low normal Bilirubin, [facility] [Mass/volume] in mg/dl Serum Total Health Serum or Plasma System DirectBilirubin 0.1 Normal (applies Direct [facility] mg/dl to non-numeric Bilirubin Health results) System Aspartate 10 Normal (applies Aspartate [facility] aminotransferase {IU/L} to non-numeric Transaminase, Heal th [Enzymatic results) Serum System activity/volume] in Serum or Plasma by With P-5'-P I.Phosphorus 3.4 Normal (applies I. Phosphorus [facility] mg/dl to non-numeric Health results) System Albumin 3.3 Below low normal Albumin, [facility] [Mass/volume] in {gm/dl} Serum Health Serum or Plasma System Calcium 8.4 Normal (applies Calcium, [facility] [Mass/volume] in mg/dl to non-numeric Total Serum Health Serum or Plasma results) System Alanine 10 Normal (applies Alanine [facility] aminotransferase {IU/L} to non-numeric Aminotransfer Heal th [Enzymatic results) ase, Serum System activity/volume] in Serum or Plasma Urate 4.1 Normal (applies Uric Acid, [facility] [Mass/volume] in mg/dl to non-numeric Serum Health Serum or Plasma results) System A/GRatio 1.38 Normal (applies A/G Ratio [facility] to non-numeric Health results) System Glomerular > 90 Normal (applies GFR [facility] filtration to non-numeric Health rate/1.73 sq results) System M.predicted [Volume Rate/Area] in Serum or Plasma by Creatinine-based formula (CKD-EPI) eGFR will provide clinicians with a more accurate indicator of renal function then the serum creatinine. The eGFR is automa tically calculated from an empiric formula (endorsed by the National Kidney [employer] ion) which incorporates age, sex, and race.Clinicians may notice surprisingly low GFR's with serum creatinine valueswithin normal range- particularly in elderly wo men (with low muscle mass).In the hospital setting, the eGFR should add an element of safety in drug dosing, in assessing the risk of IV contrast administration, and in assessing vascular risk.The NKF staging system is as follows:Normal: eGFR >90 with no kidney markersStage 1: eGFR >90 with kidney markers*Stage 2: eGFR 60- 89Stage 3: eGFR 30-59Stage 4: eGFR 15-29Stage 5: eGFR <15 (usually requir ing dialysis)*Markers include: Proteinuria, Hematuria, abnormal imaging-studies, or other blood or urine test abnormalities Anion gap in Serum 7.00 mmol/L Below low normal Anion Gap [facility] Health or Plasma System ID Date Data Source [id number] 2015 01:35:44 PM RUSTAM ricardo System Name Value Range Interpretation Description Data Sup porting Code Source(s) Document(s ) TissueExam Results for case # Normal (applies Tissue Exam [facility] [id number] [facility]) System REPORTCLINICAL INFORMATION: Abnormal CT scan. Family history of colon cancer. PREOPERATIVE DIAGNOSIS: Same.POSTOPERATIVE DIAGNOSIS: Cancer of colon.FINAL DIAGNOSIS: A: Colon, transverse, biopsy:WELL DIFFERENTIATED ADENOCARCINOMA, ULCERATED.B: Colon, sigmoid, biopsy:Tubular adenoma.GO/Francia BRYANT MDElectronically Signed By: GROSS DESCRIPTION: A: In formalin, labeled "biopsy of mass, transverse colon", the specimen consists of a 1 x 0.5 x 0.2cm aggregate of irregular, austin pink, friable tissue. The specimen is filtered and submitted in toto in one cassette.B: In formalin, labeled "polyp, sigmoid colon", the specimen consists of a 0.8 x 0.7 x 0.5cm austin pink, granular, polypoid tissue. The specimen is inked, bisected and entirely submitted in one cassette.PT/stPage 2 of 2Testing performed [facility], [address] [place] [id number]. ID Date Data Source [id number] 01/25/2015 10:44:00 AM EST [facility] Name Value Range Interpretation Description Data Sup porting Code Source(s) Document(s ) Type Cancelled Type [facility] specimen Health hemolyzed. System notified GLADYS Grover at 11:54am(03/08) D Ab [Titer] in Cancelled Rh [facility] Serum or Plasma specimen Health hemolyzed. System notified GLADYS Grover at 11:54am(03/08) AntibodyScreen Cancelled Antibody [facility] specimen Screen Health hemolyzed. System notified GLADYS Grover at 11:54am(03/08) ID Date Data Source [id number] 01/25/2015 11:00:00 AM EST [facility] Name Value Range Interpretation Description Data Sup porting Code Source(s) Document(s ) TissueExam Results for case # Normal (applies Tissue Exam [facility] [id number] to non-[facility] SURGICAL PATHOLOGY results) System REPORTCLINICAL INFORMATION: Right colon CA. PREOPERATIVE DIAGNOSIS: Same.POSTOPERATIVE DIAGNOSIS: ADDENDUM #2:To report BRAF Mutational Analysis.Original sign out date: 01/31/15.BRAF Mutational Analysis from [employer] ([id number]):Result s:BRAF mutational analysis: no BRAF mutation identified (wild type).Please refer to original report, on file in the Laboratory, for complete descriptions and comment.RPS/stADDE NDUM: To report Solid Tumor Immunohistochemica l Analysis and K-rico Gentotype Mutation Analysis results from [employer] [facility] ([id number]).Date of original diagnosis: 01/31/15.Solid Tumor Immunohistochemica l Analysis:Interpret ation: There is no immunohistochemica l evidence of DNA mismatch repair protein loss.Results:Antib rocío Clone Description ResultsMLH1 [id number] Mismatch repair protein ExpressedMSH2 [id number] Mismatch repair protein ExpressedMSH6 44 Mismatch repair protein ExpressedPMS2 MRQ-28 Mismatch repair protein ExpressedCOMMENT:A negative control and a positive control for each antibody have been reviewed and accepted.K-rico Genotype Mutation Analysis:Results:K -rico Genotype Mutation Analysis: No K-rico mutations detected (wild type).COMMENT: Braf TO FOLLOW.Please refer to the original report, on file in the Laboratory, for complete descriptions and comments.Testing performed by [employer] [facility] a business unit of [email or web address] [address] [place] [address], [address].RPS/cmFINAL DIAGNOSIS: INVASIVE ADENOCARCINOMA, WELL DIFFERENTIATED TO MODERATELY DIFFERENTIATED, INVADING THROUGH THE MUSCULARIS PROPRIA INTO THE SUBSEROSAL ADIPOSE TISSUE.Specimen: Terminal ileum, cecum, ascending colon, and appendix.Procedure : Right hemicolectomy.Tumo r site: Right (ascending) colon.Tumor size: 5.5 x 4.4 x 1.2 cm.Macroscopic tumor perforation: Not identified.Histolo gic type: Adenocarcinoma.His tologic grade: Low grade (well differentiated to moderately differentiated).Mi croscopic tumor extension: Tumor invades through the muscularis propria into the subserosal adipose tissue without penetrating the serosa.Margins (gross): All margins (proximal, distal and circumferential) are uninvolved by invasive carcinoma.Closest margin (gross): Circumferential - 3 cm.Lymphovascular invasion: Present (see comment).Perineura l invasion: Not identified.Tumor deposits (discontinuous extramural extension): Present (one).Type of polyp in which invasive carcinoma arose: None identified.Lymph nodes: 32 lymph nodes negative for metastatic carcinoma (0/32)(see comment).Pathologi c stage: pT3,pN0.Additional pathologic findings: Tubulovillous adenoma.Subserosal adipose tissue tattoo [place].Vermiform appendix with fibrous obliteration of the lumen. Terminal ileum - no significant pathologic abnormality.Omentu m - negative for tumor.COMMENT:A minute perinodal deposit consistent with lymphovascular space tumor embolus is seen. There is no intranodal tumor deposit identified. (block #20). Levels on blocks 7,8 AND 20 were reviewed.SHADY RIVERA MDElectronically Signed By: GROSS DESCRIPTION: In formalin, labeled "right colon", the specimen consists of a 30cm in length and 7.5cm in circumference portion of large bowel with an attached 6cm in length and 3.5cm in circumference portion of terminal ileum. The vermiform appendix is identified and measures 5 x 0.5cm. Both margins are stapled. The serosa is smooth, austin pink and glistening with a moderate amount of attached yellow, lobulated adipose tissue. Within the attached adipose tissue, there are 2 staple lines that measure 2.5 and 5.5cm in length. The stapled line are inked black and presumed the circumferential margin. The remaining peritonealized fat surface is inked blue. The specimen is opened to reveal a 5.5 x 4.4 x 1.2cm circumferential, austin pink, granular, raised mass with serpiginous borders. The mass is located 10.5cm from the distal margin, 14cm from the ileocecal valve, and 19cm from the proximal margin. The mass is also located 3cm from the circumferential margin. Sectioning the mass reveals a austin pink, friable, granular cut surface. The mass grossly extends through the underlying wall and into the underlying adipose tissue. The mass is located 0.6cm from the nearest peritonealized fat surface. Adjacent to the mass, there is a 1 x 0.8 x 0.3cm blackened area within the fat (?). Further examination reveals a 1.8 x 1 x 1cm pedunculated polyp that is located 1.5cm proximal to the mass and 11cm distal to the ileocecal valve. The remaining mucosa is austin pink, smooth, and glistening with cerebriform mucosal folds. The ileocecal valve is austin yellow and lipomatous. Sectioning the attached adipose tissue reveals numerous austin, rubbery nodules (suggestive of lymph nodes) ranging from 0.1 to 1cm in greatest dimension. [employer] Ssis Developer sections are submitted, labeled as follows: #1- proximal margin; #2- distal margin; #3-4- circumferential margin; #5,6- mass to serosa; #7,8- mass to peritonealized fat surface to include adjacent lymph node, bisected; #9- mass to adjacent mucosa with adjacent lymph node, bisected; #10- remainder of lymph nodes; #11- mass to adjacent mucosa; #12- tattoo ink within fat; #13,14- polyp, bisected; #15- appendix; #16- ileocecal valve; #17-20- each containing one possible lymph node, bisected; #21- one possible lymph node, trisected; #22-27- multiple possible intact lymph nodes; #28- omentum.PT/stPage 4 of 4Testing performed at [facility], [address] [place] [id number]. ID Date Data Source [id number] 01/26/2015 06:00:00 AM EST [facility] Name Value Range Interpretation Description Data Sup porting Code Source(s) Document(s ) Erythrocytes 4.12 10 Normal (applies RBC Count [facility] [#/volume] in to non-numeric Health Blood by results) System Automated count Leukocytes 14.1 10 Above high normal WBC Count [facility] [#/volume] in Health Unspecified System specimen by Automated count Hematocrit 35.2 % Below low normal Hematocrit [facility] [Volume Health Fraction] of System Blood Hemoglobin 11.1 Below low normal Hemoglobin [facility] [Mass/volume] in {gm/dL} Health Blood System Erythrocyte mean 85.4 fl Normal (applies MCV [facility] corpuscular to non-numeric Health volume [Entitic results) System volume] by Automated count Erythrocyte mean 26.9 pg Normal (applies MCH [facility] corpuscular to non-numeric Health hemoglobin results) System [Entitic mass] by Automated count Erythrocyte mean 31.5 Below low normal MCHC [facility] corpuscular {gm/dL} Health hemoglobin System concentration [Mass/volume] by Automated count Erythrocyte 16.9 % Above high normal RDW-CV [facility] distribution Health width [Entitic System volume] by Automated count Platelet mean 11.1 fl Above high normal MPV [facility] volume [Entitic Health volume] in Blood System by Automated count Platelets 314 10 Normal (applies Platelet [facility] [#/volume] in to non-numeric Count Health Plasma by results) System Automated count Monocytes 0.8 10 Normal (applies Monocyte # [facility] [#/volume] in to non-numeric Health Blood by Manual results) System count Eosinophils 0.07 10 Normal (applies Eosinophil # [facility] [#/volume] in to non-numeric Health Blood results) System Neutrophils 11.3 10 Above high normal Neutrophil # [facility] [#/volume] in Health Body fluid System Basophils 0.01 10 Normal (applies Basophil # [facility] [#/volume] in to non-numeric Health Blood by results) System Automated count Lymphocyte 1.9 10 Normal (applies Lymphocyte # [facility] percent to non-numeric Health differential results) System count (procedure) Neutrophils/100 80.3 % Normal (applies Neutrophil % [place] n[place] leukocytes in to non-numeric Health Blood by results) System Automated count Eosinophils/100 0.5 % Below low normal Eosinophil % [facility] leukocytes in Health Unspecified System specimen Monocytes/100 5.8 % Below low normal Monocyte % [facility] leukocytes in Health Blood System Basophils/100 0.1 % Normal (applies Basophil % [facility] leukocytes in to non-numeric Health Unspecified results) System specimen by Manual count Lymphocytes 13.3 % Below low normal Lymphocyte % [facility] [#/volume] in Health Blood by System Automated count ID Date Data Source [id number] 01/26/2015 06:00:00 AM EST [facility] Name Value Range Interpretation Description Data Sup porting Code Source(s) Document(s ) Sodium 136 Below low normal Sodium, Serum [facility] [Moles/volume] in mmol/L Health Serum or Plasma System Potassium 3.8 Normal (applies Potassium, [facility] [Mass/volume] in mmol/L to non-numeric Serum Health Serum or Plasma results) System Chloride 105 Normal (applies Chloride, [facility] [Moles/volume] in mmol/L to non-numeric Serum Health Serum or Plasma results) System Carbon dioxide, 25.0 Normal (applies CO2, Serum [facility] total mmol/L to non-numeric Health [Moles/volume] in results) System Serum or Plasma TotalProtein 6.2 Below low normal Total Protein [facility] mg/dl [facility] System Glucose 109 Above high Glucose, [facility] [Mass/volume] in mg/dL normal Serum Health Serum or Plasma System Urea nitrogen 4 mg/dl Below low normal Blood Urea [facility] [Mass/volume] in Nitrogen, Health Serum or Plasma Serum System Creatinine 0.76 Normal (applies Creatinine, [facility] [Mass/volume] in mg/dl to non-numeric Serum Health Serum or Plasma results) System Alkaline 87 Normal (applies Alkaline [facility] phosphatase {IU/L} to non-numeric Phosphatase, [facility] isoenzymes results) Serum System [Enzymatic activity/volume] in Serum or Plasma by Heat stability Bilirubin.total 0.4 Normal (applies Bilirubin, [facility] [Mass/volume] in mg/dl to non-numeric Serum Total Health Serum or Plasma results) System DirectBilirubin 0.2 Normal (applies Direct [facility] mg/dl to non-numeric Bilirubin Health results) System Aspartate 24 Normal (applies Aspartate [facility] aminotransferase {IU/L} to non-numeric Transaminase, Heal th [Enzymatic results) Serum System activity/volume] in Serum or Plasma by With P-5'-P Albumin 3.3 Below low normal Albumin, [facility] [Mass/volume] in {gm/dl} Serum Health Serum or Plasma System I.Phosphorus 2.1 Below low normal I. Phosphorus [facility] mg/dl [facility] System Alanine 20 Normal (applies Alanine [facility] aminotransferase {IU/L} to non-numeric Aminotransfer [facility] [Enzymatic results) ase, Serum System activity/volume] in Serum or Plasma Calcium 7.6 Below low normal Calcium, [facility] [Mass/volume] in mg/dl Total Serum Health Serum or Plasma System A/GRatio 1.14 Normal (applies A/G Ratio [facility] to non-numeric Health results) System Urate 4.3 Normal (applies Uric Acid, [facility] [Mass/volume] in mg/dl to non-numeric Serum Health Serum or Plasma results) System Anion gap in Serum 6.00 Below low normal Anion Gap [facility] or Plasma mmol/L Health System Glomerular 80.87 Normal (applies GFR [facility] filtration to non-numeric Health rate/1.73 sq results) System M.predicted [Volume Rate/Area] in Serum or Plasma by Creatinine-based formula (CKD-EPI) eGFR will provide clinicians with a more accurate indicator of renal function then the serum creatinine. The eGFR is automa tically calculated from an empiric formula (endorsed by the National [employer] ion) which incorporates age, sex, and race.Clinicians may notice surprisingly low GFR's with serum creatinine valueswithin normal range- particularly in elderly wo men (with low muscle mass).In the hospital setting, the eGFR should add an element of safety in drug dosing, in assessing the risk of IV contrast administration, and in assessing vascular risk.The NKF staging system is as follows:Normal: eGFR >90 with no kidney markersStage 1: eGFR >90 with kidney markers*Stage 2: eGFR 60- 89Stage 3: eGFR 30-59Stage 4: eGFR 15-29Stage 5: eGFR <15 (usually requir ing dialysis)*Markers include: Proteinuria, Hematuria, abnormal imaging-studies, or other blood or urine test abnormalities ID Date Data Source [id number] 01/26/2015 07:33:00 PM EST [facility] Name Value Range Interpretation Description Data Sup porting Code Source(s) Document(s ) Deprecated Micro Normal (applies Aerobic [facility] Bacteria Result to non-numeric Culture, Health identified in results) Urine System Urine by Aerobe culture ColonyCount < 10,000 [place] Count [facility] CFU/ML Health System XXX GRAM Organism [facility] microorganism POSITIVE Health serotype COCCI System [Identifier] in Isolate by Agglutination ID Date Data Source [id number] 01/26/2015 07:33:00 PM EST [facility] Name Value Range Interpretation Description Data Sup porting Code Source(s) Document(s ) Appearance of CLOUDY Normal (applies Urine [facility] Urine to non-numeric Appearance Health results) System Color RED Normal (applies Color [facility] to non-numeric Health results) System pH.. 7.0 Normal (applies pH.. [facility] {pH_units} to non-numeric Health results) System Specific gravity 1.010 Normal (applies Urine Specific [facility] of Urine to non-numeric [place] [facility] results) System Protein NEGATIVE Normal (applies Protein [facility] [Mass/volume] in to non-numeric Health Serum or Plasma results) System Glucose,UA NEGATIVE Normal (applies Glucose, UA [facility] to non-numeric Health results) System BilirubinUrine NEGATIVE Normal (applies Bilirubin [facility] to non-numeric Urine Health results) System Urobilinogen 0.2 mg/dL Normal (applies Urobilinogen [facility] [Mass/volume] in to non-numeric UA Health Urine results) System Ketones NEGATIVE Normal (applies Ketones UA [facility] [Mass/volume] in to non-numeric Health Urine results) System Nitrate+Nitrite NEGATIVE Normal (applies Nitrite [facility] [Mass/volume] in to non-numeric Health Unspecified results) System specimen Leukocyte NEGATIVE Normal (applies Leukocyte [facility] esterase to non-numeric Esterase Health [Units/volume] results) Concentration System in Urine RedBloodCells > 100 Normal (applies Red Blood [facility] to non-numeric Cells Health results) System Leukocytes 0-1 Normal (applies White Blood [facility] [#/volume] in to non-numeric Cells Health Unspecified results) System specimen by Automated count Epithelial cells OCC Normal (applies Epithelial [facility] [Presence] in to non-numeric Cells Health Unspecified results) System specimen by Wet preparation Bacteria FEW Normal (applies Bacteria [facility] [Presence] in to non-numeric Health Unspecified results) System specimen UrineBlood LARGE Normal (applies Urine Blood [facility] to non-numeric Health results) System ID Date Data Source [id number] 01/27/2015 06:00:00 AM EST [facility] Name Value Range Interpretation Description Data Sup porting Code Source(s) Document(s ) Leukocytes 19.8 10 Above high normal WBC Count [facility] [#/volume] in Health Unspecified System specimen by Automated count Erythrocytes 4.39 10 Normal (applies RBC Count [facility] [#/volume] in to non-numeric Health Blood by results) System Automated count Hemoglobin 11.9 Below low normal Hemoglobin [facility] [Mass/volume] in {gm/dL} Health Blood System Hematocrit 37.4 % Normal (applies Hematocrit [facility] [Volume to non-numeric Health Fraction] of results) System Blood Erythrocyte mean 27.1 pg Normal (applies MCH [facility] corpuscular to non-numeric Health hemoglobin results) System [Entitic mass] by Automated count Erythrocyte mean 85.2 fl Normal (applies MCV [facility] corpuscular to non-numeric Health volume [Entitic results) System volume] by Automated count Erythrocyte mean 31.8 Below low normal [facility]CHC [facility] corpuscular {gm/dL} Health hemoglobin System concentration [Mass/volume] by Automated count Erythrocyte 16.8 % Above high normal RDW-CV [facility] distribution Health width [Entitic System volume] by Automated count Platelets 224 10 Normal (applies Platelet [facility] [#/volume] in to non-numeric Count Health Plasma by results) System Automated count Platelet mean 11.5 fl Above high normal MPV [facility] volume [Entitic Health volume] in Blood System by Automated count Monocytes 1.4 10 Above high normal Monocyte # [facility] [#/volume] in Health Blood by Manual System count Neutrophils 16.3 10 Above high normal Neutrophil # [facility] [#/volume] in Health Body fluid System Eosinophils 0.07 10 Normal (applies Eosinophil # [facility] [#/volume] in to non-numeric Health Blood results) System Basophils 0.02 10 Normal (applies Basophil # [facility] [#/volume] in to non-numeric Health Blood by results) System Automated count Neutrophils/100 82.2 % Normal (applies Neutrophil % [place] leukocytes in to non-numeric Health Blood by results) System Automated count Lymphocyte 2.0 10 Normal (applies Lymphocyte # [facility] percent to non-numeric Health differential results) System count (procedure) Eosinophils/100 0.4 % Below low normal Eosinophil % [facility] leukocytes in Health Unspecified System specimen Monocytes/100 7.2 % Normal (applies Monocyte % [facility] leukocytes in to non-numeric Health Blood results) System Basophils/100 0.1 % Normal (applies Basophil % [facility] leukocytes in to non-numeric Health Unspecified results) System specimen by Manual count Lymphocytes 10.1 % Below low normal Lymphocyte % [facility] [#/volume] in Health Blood by System Automated count ID Date Data Source [id number] 01/27/2015 06:00:00 AM EST [facility] Name Value Range Interpretation Description Data Sup porting Code Source(s) Document(s ) Sodium 137 Normal (applies Sodium, Serum [facility] [Moles/volume] in mmol/L to non-numeric Health Serum or Plasma results) System Potassium 4.5 Normal (applies Potassium, [facility] [Mass/volume] in mmol/L to non-numeric Serum Health Serum or Plasma results) System Chloride 104 Normal (applies Chloride, [facility] [Moles/volume] in mmol/L to non-numeric Serum Health Serum or Plasma results) System TotalProtein 6.1 Below low normal Total Protein [facility] mg/dl Health System Carbon dioxide, 25.0 Normal (applies CO2, Serum [facility] total mmol/L to non-numeric Health [Moles/volume] in results) System Serum or Plasma Glucose 105 Normal (applies Glucose, [facility] [Mass/volume] in mg/dL to non-numeric Serum Health Serum or Plasma results) System Urea nitrogen 3 mg/dl Below low normal Blood Urea [facility] [Mass/volume] in Nitrogen, Health Serum or Plasma Serum System Creatinine 0.66 Below low normal Creatinine, [facility] [Mass/volume] in mg/dl Serum Health Serum or Plasma System Alkaline 88 Normal (applies Alkaline [facility] phosphatase {IU/L} to non-numeric Phosphatase, Health isoenzymes results) Serum System [Enzymatic activity/volume] in Serum or Plasma by Heat stability DirectBilirubin 0.4 Normal (applies Direct [facility] mg/dl to non-numeric Bilirubin Health results) System Bilirubin.total 0.7 Normal (applies Bilirubin, [facility] [Mass/volume] in mg/dl to non-numeric Serum Total Health Serum or Plasma results) System Aspartate 16 Normal (applies Aspartate [facility] aminotransferase {IU/L} to non-numeric Transaminase, Heal th [Enzymatic results) Serum System activity/volume] in Serum or Plasma by With P-5'-P I.Phosphorus 1.9 Below low normal I. Phosphorus [facility] mg/dl Health System Albumin 3.2 Below low normal Albumin, [facility] [Mass/volume] in {gm/dl} Serum Health Serum or Plasma System Calcium 8.0 Below low normal Calcium, [facility] [Mass/volume] in mg/dl Total Serum Health Serum or Plasma System Alanine 15 Normal (applies Alanine [facility] aminotransferase {IU/L} to non-numeric Aminotransfer Heal th [Enzymatic results) ase, Serum System activity/volume] in Serum or Plasma A/GRatio 1.10 Normal (applies A/G Ratio [facility] to non-numeric Health results) System Anion gap in Serum 8.00 Normal (applies Anion Gap Lopez nydia or Plasma mmol/L to non-numeric Health results) System Urate 3.1 Normal (applies Uric Acid, [facility] [Mass/volume] in mg/dl to non-numeric Serum Health Serum or Plasma results) System Glomerular > 90 Normal (applies GFR [facility] filtration to non-numeric Health rate/1.73 sq results) System M.predicted [Volume Rate/Area] in Serum or Plasma by Creatinine-based formula (CKD-EPI) eGFR will provide clinicians with a more accurate indicator of renal function then the serum creatinine. The eGFR is automa tically calculated from an empiric formula (endorsed by the [employer] ion) which incorporates age, sex, and race.Clinicians may notice surprisingly low GFR's with serum creatinine valueswithin normal range- particularly in elderly wo men (with low muscle mass).In the hospital setting, the eGFR should add an element of safety in drug dosing, in assessing the risk of IV contrast administration, and in assessing vascular risk.The NKF staging system is as follows:Normal: eGFR >90 with no kidney markersStage 1: eGFR >90 with kidney markers*Stage 2: eGFR 60- 89Stage 3: eGFR 30-59Stage 4: eGFR 15-29Stage 5: eGFR <15 (usually requir ing dialysis)*Markers include: Proteinuria, Hematuria, abnormal imaging-studies, or other blood or urine test abnormalities ID Date Data Source [id number] 01/27/2015 10:01:00 AM EST [facility] Name Value Range Interpretation Description Data Sup porting Code Source(s) Document(s ) Bacteria NO GROWTH Culture [facility] identified in Bacteria Blood Health Syst em Blood by Aerobe culture ID Date Data Source [id number] 01/27/2015 10:01:00 AM EST [facility] Name Value Range Interpretation Description Data Sup porting Code Source(s) Document(s ) Bacteria NO GROWTH Culture [facility] identified in Bacteria Blood Health Syst em Blood by Aer[facility] culture ID Date Data Source [id number] 01/28/2015 06:00:00 AM EST [facility] Name Value Range Interpretation Description Data Sup porting Code Source(s) Document(s ) Leukocytes 16.4 10 Above high normal WBC Count [facility] [#/volume] in Health Unspecified System specimen by Automated count Erythrocytes 3.87 10 Normal (applies RBC Count [facility] [#/volume] in to non-numeric Health Blood by results) System Automated count Hemoglobin 10.4 Below low normal Hemoglobin [facility] [Mass/volume] in {gm/dL} Health Blood System Erythrocyte mean 84.5 fl Normal (applies MCV [facility] corpuscular to non-numeric Health volume [Entitic results) System volume] by Automated count Hematocrit 32.7 % Below low normal Hematocrit [facility] [Volume Health Fraction] of System Blood Erythrocyte mean 26.9 pg Normal (applies MCH [facility] corpuscular to non-numeric Health hemoglobin results) System [Entitic mass] by Automated count Erythrocyte 16.7 % Above high normal RDW-CV [facility] distribution Health width [Entitic System volume] by Automated count Erythrocyte mean 31.8 Below low normal [facility] corpuscular {gm/dL} Health hemoglobin System concentration [Mass/volume] by Automated count Platelets 310 10 Normal (applies Platelet [facility] [#/volume] in to non-numeric Count Health Plasma by results) System Automated count ok Platelet mean volume 11.1 fl Above high normal MPV [facility] [Entitic volume] in System Blood by Automated count Monocytes [#/volume] in 1.0 10 Above high normal Monocyte # [facility] Blood by Manual count System Eosinophils [#/volume] 0.28 10 Normal (applies Eosinophil # [facility] in Blood to non-numeric System results) Neutrophils [#/volume] 13.4 10 Above high normal Neutro verónica # [facility] in Body fluid System Basophils [#/volume] in 0.01 10 Normal (applies Basophil # [facility] Blood by Automated to non-numeric System count results) Lymphocyte percent 1.7 10 Normal (applies Lymphocyte # [facility] differential count to non-numeric System (procedure) results) Neutrophils/100 81.8 % Normal (applies Neutrophil % [place] n[facility] Health leukocytes in Blood by to non-numeric Sy stem Automated count results) Monocytes/100 5.9 % Below low normal Monocyte % [facility] leukocytes in Blood System Eosinophils/100 1.7 % Normal (applies Eosinophil % [place] n[facility] Health leukocytes in to non-numeric System Unspecified specimen results) Basophils/100 0.1 % Normal (applies Basophil % [facility] leukocytes in to non-numeric System Unspecified specimen by results) Manual count Lymphocytes [#/volume] 10.5 % Below low normal Lymphocyte % [facility] in Blood by Automated System count ID Date Data Source [id number] 01/28/2015 06:00:00 AM EST [facility] Name Value Range Interpretation Description Data Sup porting Code Source(s) Document(s ) Sodium 140 Normal (applies Sodium, Serum [facility] [Moles/volume] in mmol/L to non-numeric Health Serum or Plasma results) System Potassium 4.0 Normal (applies Potassium, [facility] [Mass/volume] in mmol/L to non-numeric Serum Health Serum or Plasma results) System Chloride 108 Above high Chloride, [facility] [Moles/volume] in mmol/L normal Serum Health Serum or Plasma System Carbon dioxide, 24.0 Normal (applies CO2, Serum [facility] total mmol/L to non-numeric Health [Moles/volume] in results) System Serum or Plasma TotalProtein 5.5 Below low normal Total Protein [facility] mg/dl [facility] System Urea nitrogen 3 mg/dl Below low normal Blood Urea [facility] [Mass/volume] in Nitrogen, Health Serum or Plasma Serum System Glucose 96 Normal (applies Glucose, [facility] [Mass/volume] in mg/dL to non-numeric Serum Health Serum or Plasma results) System Creatinine 0.60 Below low normal Creatinine, [facility] [Mass/volume] in mg/dl Serum Health Serum or Plasma System Alkaline 78 Normal (applies Alkaline [facility] phosphatase {IU/L} to non-numeric Phosphatase, Health isoenzymes results) Serum System [Enzymatic activity/volume] in Serum or Plasma by Heat stability Bilirubin.total 0.4 Normal (applies Bilirubin, [facility] [Mass/volume] in mg/dl to non-numeric Serum Total Health Serum or Plasma results) System Aspartate 10 Normal (applies Aspartate [facility] aminotransferase {IU/L} to non-numeric Transaminase, [facility] [Enzymatic results) Serum System activity/volume] in Serum or Plasma by With P-5'-P DirectBilirubin 0.2 Normal (applies Direct [facility] mg/dl to non-numeric Bilirubin Health results) System Albumin 2.9 Below low normal Albumin, [facility] [Mass/volume] in {gm/dl} Serum Health Serum or Plasma System I.Phosphorus 1.5 Below low normal I. Phosphorus [facility] mg/dl Health System Calcium 8.1 Below low normal Calcium, [facility] [Mass/volume] in mg/dl Total Serum Health Serum or Plasma System Alanine 13 Normal (applies Alanine [facility] aminotransferase {IU/L} to non-numeric Aminotransfer Heal th [Enzymatic results) ase, Serum System activity/volume] in Serum or Plasma A/GRatio 1.12 Normal (applies A/G Ratio [facility] to non-numeric Health results) System Urate 2.3 Below low normal Uric Acid, [facility] [Mass/volume] in mg/dl Serum Health Serum or Plasma System Anion gap in Serum 8.00 Normal (applies Anion Gap [facility] n[facility] or Plasma mmol/L to non-numeric Health results) System Glomerular > 90 Normal (applies GFR [facility] filtration to non-numeric Health rate/1.73 sq results) System M.predicted [Volume Rate/Area] in Serum or Plasma by Creatinine-based formula (CKD-EPI) eGFR will provide clinicians with a more accurate indicator of renal function then the serum creatinine. The eGFR is automa tically calculated from an empiric formula (endorsed by the [employer]) which incorporates age, sex, and race.Clinicians may notice surprisingly low GFR's with serum creatinine valueswithin normal range- particularly in elderly wo men (with low muscle mass).In the hospital setting, the eGFR should add an element of safety in drug dosing, in assessing the risk of IV contrast administration, and in assessing vascular risk.The NKF staging system is as follows:Normal: eGFR >90 with no kidney markersStage 1: eGFR >90 with kidney markers*Stage 2: eGFR 60- 89Stage 3: eGFR 30-59Stage 4: eGFR 15-29Stage 5: eGFR <15 (usually requir ing dialysis)*Markers include: Proteinuria, Hematuria, abnormal imaging-studies, or other blood or urine test abnormalities ID Date Data Source [id number] 01/29/2015 06:00:00 AM EDT [facility] System Name Value Range Interpretation Description Data Sup porting Code Source(s) Document(s ) Sodium 141 Normal (applies Sodium, Serum [facility] [Moles/volume] in mmol/L to non-numeric Health Serum or Plasma results) System Potassium 4.1 Normal (applies Potassium, [facility] [Mass/volume] in mmol/L to non-numeric Serum Health Serum or Plasma results) System Carbon dioxide, 25.0 Normal (applies CO2, Serum [facility] total mmol/L to non-numeric Health [Moles/volume] in results) System Serum or Plasma Chloride 107 Normal (applies Chloride, [facility] [Moles/volume] in mmol/L to non-numeric Serum Health Serum or Plasma results) System TotalProtein 5.7 Below low normal Total Protein [facility] mg/dl [facility] System Glucose 98 Normal (applies Glucose, [facility] [Mass/volume] in mg/dL to non-numeric Serum Health Serum or Plasma results) System Creatinine 0.70 Normal (applies Creatinine, [facility] [Mass/volume] in mg/dl to non-numeric Serum Health Serum or Plasma results) System Urea nitrogen 2 mg/dl Below low normal Blood Urea [facility] [Mass/volume] in Nitrogen, Health Serum or Plasma Serum System Alkaline 96 Normal (applies Alkaline [facility] phosphatase {IU/L} to non-numeric Phosphatase, Health isoenzymes results) Serum System [Enzymatic activity/volume] in Serum or Plasma by Heat stability Bilirubin.total 0.4 Normal (applies Bilirubin, [facility] [Mass/volume] in mg/dl to non-numeric Serum Total Health Serum or Plasma results) System DirectBilirubin 0.2 Normal (applies Direct [facility] mg/dl to non-numeric Bilirubin Health results) System Aspartate 11 Normal (applies Aspartate [facility] aminotransferase {IU/L} to non-numeric Transaminase, Heal th [Enzymatic results) Serum System activity/volume] in Serum or Plasma by With P-5'-P Albumin 3.0 Below low normal Albumin, [facility] [Mass/volume] in {gm/dl} Serum Health Serum or Plasma System I.Phosphorus 2.3 Below low normal I. Phosphorus [facility] mg/dl [facility] System Alanine 10 Normal (applies Alanine [facility] aminotransferase {IU/L} to non-numeric Aminotransfer [facility] [Enzymatic results) ase, Serum System activity/volume] in Serum or Plasma Calcium 8.3 Below low normal Calcium, [facility] [Mass/volume] in mg/dl Total Serum Health Serum or Plasma System A/GRatio 1.11 Normal (applies A/G Ratio [facility] to non-numeric Health results) System Urate 2.0 Below low normal Uric Acid, [facility] [Mass/volume] in mg/dl Serum Health Serum or Plasma System Anion gap in Serum 9.00 Normal (applies Anion Gap [facility] n[facility] or Plasma mmol/L to non-numeric Health results) System Glomerular 88.91 Normal (applies GFR [facility] filtration to non-numeric Health rate/1.73 sq results) System M.predicted [Volume Rate/Area] in Serum or Plasma by Creatinine-based formula (CKD-EPI) eGFR will provide clinicians with a more accurate indicator of renal function then the serum creatinine. The eGFR is automa tically calculated from an empiric formula (endorsed by the [employer]) which incorporates age, sex, and race.Clinicians may notice surprisingly low GFR's with serum creatinine valueswithin normal range- particularly in elderly wo men (with low muscle mass).In the hospital setting, the eGFR should add an element of safety in drug dosing, in assessing the risk of IV contrast administration, and in assessing vascular risk.The NKF staging system is as follows:Normal: eGFR >90 with no kidney markersStage 1: eGFR >90 with kidney markers*Stage 2: eGFR 60- 89Stage 3: eGFR 30-59Stage 4: eGFR 15-29Stage 5: eGFR <15 (usually requir ing dialysis)*Markers include: Proteinuria, Hematuria, abnormal imaging-studies, or other blood or urine test abnormalities ID Date Data Source [id number] 01/29/2015 06:00:00 AM EDT [facility] Name Value Range Interpretation Description Data Sup porting Code Source(s) Document(s ) Leukocytes 9.9 10 Normal (applies to WBC Count [facility] [#/volume] in non-numeric Health System Unspecified results) specimen by Automated count ok Hemoglobin 10.2 {gm/dL} Below low Hemoglobin [facility] [Mass/volume] in normal System Blood Erythrocytes 3.73 10 Below low RBC Count [facility] [#/volume] in Blood normal System by Automated count Hematocrit [Volume 31.5 % Below low Hematocrit [facility] Fraction] of Blood normal System Erythrocyte mean 84.5 fl Normal MCV [facility] corpuscular volume (applies to System [Entitic volume] by non-numeric Automated count results) Erythrocyte mean 27.3 pg Normal MCH [facility] corpuscular (applies to System hemoglobin [Entitic non-numeric mass] by Automated results) count Erythrocyte 16.6 % Above high RDW-CV [facility] distribution width normal System [Entitic volume] by Automated count Erythrocyte mean 32.4 {gm/dL} Below low MCHC [facility] corpuscular normal System hemoglobin concentration [Mass/volume] by Automated count Platelets [#/volume] 359 10 Normal Platelet Count [facility] in Plasma by (applies to System Automated count non-numeric results) Platelet mean volume 11.2 fl Above high MPV [facility] [Entitic volume] in normal System Blood by Automated count Monocytes [#/volume] 0.6 10 Normal Monocyte # [facility] in Blood by Manual (applies to System count non-numeric results) Eosinophils 0.30 10 Normal Eosinophil # [facility] [#/volume] in Blood (applies to System non-numeric results) Neutrophils 7.4 10 Normal Neutrophil # [facility] [#/volume] in Body (applies to System fluid non-numeric results) Basophils [#/volume] 0.02 10 Normal Basophil # [facility] in Blood by Automated (applies to System count non-numeric results) Lymphocyte percent 1.6 10 Normal Lymphocyte # [facility] differential count (applies to System (procedure) non-numeric results) Neutrophils/100 74.9 % Normal Neutrophil % [facility] leukocytes in Blood (applies to System by Automated count non-numeric results) Monocytes/100 5.8 % Below low Monocyte % [facility] leukocytes in Blood normal System Eosinophils/100 3.0 % Normal Eosinophil % [facility] leukocytes in (applies to System Unspecified specimen non-numeric results) Basophils/100 0.2 % Normal Basophil % [facility] leukocytes in (applies to System Unspecified specimen non-numeric by Manual count results) Lymphocytes 16.1 % Below low Lymphocyte % [facility] [#/volume] in Blood normal System by Automated count ID Date Data Source [id number] 02/02/2015 11:39:00 AM EDT [facility] Name Value Range Interpretation Description Data Sup porting Code Source(s) Document(s ) Appearance of Cancelled Urine [facility] Urine no specimen Appearance Health received System Color Cancelled Color [facility] no specimen Health received System Specific gravity Cancelled Urine Specific [facility] of Urine no specimen [place] [facility] received System pH.. Cancelled pH.. [facility] no specimen Health received System Protein Cancelled Protein [facility] [Mass/volume] in no specimen Health Serum or Plasma received System Glucose,UA Cancelled Glucose, UA [facility] no specimen Health received System BilirubinUrine Cancelled Bilirubin [facility] no specimen Urine Health received System Urobilinogen Cancelled Urobilinogen [facility] [Mass/volume] in no specimen UA Health Urine received System Ketones Cancelled Ketones UA [facility] [Mass/volume] in no specimen Health Urine received System Nitrate+Nitrite Cancelled Nitrite [facility] [Mass/volume] in no specimen Health Unspecified received System specimen Leukocyte Cancelled Leukocyte [facility] esterase no specimen Esterase Health [Units/volume] received Concentration System in Urine UrineBlood Cancelled Urine Blood [facility] no specimen Health received System ID Date Data Source [id number] 02/02/2015 11:39:00 AM EDT [facility] Name Value Range Interpretation Description Data Sup porting Code Source(s) Document(s ) Prothrombintim 10.90 Normal (applies Prothrombin [facility](PT) {seconds to non-numeric time (PT) Health System } results) INR in Blood 1.05 Normal (applies INR Result [facility] by Coagulation {Ratio} to non-numeric Health Sys tem assay results) Normal = 0.7-1.1Therapeutic = 2.0-3.0Mec hanical Heart = 3.0-4.5 ID Date Data Source [id number] 02/02/2015 11:39:00 AM EDT [facility] Name Value Range Interpretation Description Data Sup porting Code Source(s) Document(s ) Polys 65 % Normal (applies Polys [facility] to non-numeric Health System results) Lymphocyte%. 16 % Below low normal Lymphocyte %. [facility] Platelets Adequate Normal (applies Platelet Count [facility] [#/volume] to non-numeric Estimate Health System in Blood by results) Estimate Monocyte%. 16 % Above high normal Monocyte %. [facility] Eosinophils% 3 % Normal (applies Eosinophils %. [facility] . to non-numeric [facility] System results) NORM Yes Normal (applies NORM [facility] to non-numeric Health System results) ID Date Data Source [id number] 02/02/2015 11:39:00 AM EDT [facility] Name Value Range Interpretation Description Data Sup porting Code Source(s) Document(s ) Leukocytes 20.7 10 Above high normal WBC Count [facility] [#/volume] in Health Unspecified System specimen by Automated count Erythrocytes 4.16 10 Normal (applies RBC Count [facility] [#/volume] in to non-numeric Health Blood by results) System Automated count Hemoglobin 11.4 Below low normal Hemoglobin [facility] [Mass/volume] in {gm/dL} Health Blood System Hematocrit 34.4 % Below low normal Hematocrit [facility] [Volume Health Fraction] of System Blood Erythrocyte mean 82.7 fl Normal (applies MCV [facility] corpuscular to non-numeric Health volume [Entitic results) System volume] by Automated count Erythrocyte mean 27.4 pg Normal (applies MCH [facility] corpuscular to non-numeric Health hemoglobin results) System [Entitic mass] by Automated count Erythrocyte mean 33.1 Normal (applies MCHC [facility] corpuscular {gm/dL} to non-numeric Health hemoglobin results) System concentration [Mass/volume] by Automated count Erythrocyte 17.1 % Above high normal RDW-CV [facility] distribution Health width [Entitic System volume] by Automated count Platelets 471 10 Above high normal Platelet [facility] [#/volume] in Count Health Plasma by System Automated count Platelet mean 11.2 fl Above high normal MPV [facility] volume [Entitic Health volume] in Blood System by Automated count Monocytes 1.1 10 Above high normal Monocyte # [facility] [#/volume] in Health Blood by Manual System count Eosinophils 0.39 10 Above high normal Eosinophil # [facility] [#/volume] in Health Blood System Neutrophils 16.3 10 Above high normal Neutrophil # [facility] [#/volume] in Health Body fluid System Basophils 0.03 10 Normal (applies Basophil # [facility] [#/volume] in to non-numeric Health Blood by results) System Automated count Lymphocyte 3.0 10 Normal (applies Lymphocyte # [facility] percent to non-numeric Health differential results) System count (procedure) Neutrophils/100 78.4 % Normal (applies Neutrophil % [facility] leukocytes in to non-numeric Health Blood by results) System Automated count Monocytes/100 5.1 % Below low normal Monocyte % [facility] leukocytes in Health Blood System Eosinophils/100 1.9 % Normal (applies Eosinophil % [facility] leukocytes in to non-numeric Health Unspecified results) System specimen Lymphocytes 14.5 % Below low normal Lymphocyte % [facility] [#/volume] in Health Blood by System Automated count Basophils/100 0.1 % Normal (applies Basophil % [facility] leukocytes in to non-numeric Health Unspecified results) System specimen by Manual count ID Date Data Source [id number] 02/02/2015 11:39:00 AM EDT [facility] System Name Value Range Interpretation Description Data Sup porting Code Source(s) Document(s ) Sodium 136 mmol/L Below low Sodium, [facility] [Moles/volume] in normal Serum Health Serum or Plasma System Potassium Cancelled Potassium, [facility] [Mass/volume] in SPECIMEN Serum Health Serum or Plasma HEMOLYCED System Chloride 105 mmol/L Normal (applies Chloride, [facility] [Moles/volume] in to non-numeric Serum Health Serum or Plasma results) System Carbon dioxide, 19.0 mmol/L Below low CO2, Serum [facility] total normal Health [Moles/volume] in System Serum or Plasma TotalProtein 8.3 mg/dl Above high Total [facility] normal Protein Health System Glucose 88 mg/dL Normal (applies Glucose, [facility] [Mass/volume] in to non-numeric Serum Health Serum or Plasma results) System Urea nitrogen 8 mg/dl Normal (applies Blood Urea [facility] [Mass/volume] in to non-numeric Nitrogen, Health Serum or Plasma results) Serum System Creatinine 0.80 mg/dl Normal (applies Creatinine, [facility] [Mass/volume] in to non-numeric Serum Health Serum or Plasma results) System Alkaline 138 {IU/L} Above high Alkaline [facility] phosphatase normal Phosphatase, Health isoenzymes Serum System [Enzymatic activity/volume] in Serum or Plasma by Heat stability Bilirubin.total 0.3 mg/dl Normal (applies Bilirubin, [facility] [Mass/volume] in to non-numeric Serum Total Health Serum or Plasma results) System DirectBilirubin < 0.1 Normal (applies Direct [facility] to non-numeric Bilirubin Health results) System Aspartate 63 {IU/L} Above high Aspartate [facility] aminotransferase normal Transaminase Health [Enzymatic , Serum System activity/volume] in Serum or Plasma by With P-5'-P Albumin 3.5 {gm/dl} Below low Albumin, [facility] [Mass/volume] in normal Serum Health Serum or Plasma System I.Phosphorus 4.4 mg/dl Normal (applies I. [facility] to non-numeric Phosphorus Health results) System Alanine 39 {IU/L} Normal (applies Alanine [facility] aminotransferase to non-numeric Aminotransfe Healt h [Enzymatic results) rase, Serum System activity/volume] in Serum or Plasma Calcium 9.0 mg/dl Normal (applies Calcium, [facility] [Mass/volume] in to non-numeric Total Serum Health Serum or Plasma results) System A/GRatio 0.73 Normal (applies A/G Ratio [facility] to non-numeric Health results) System Urate 3.0 mg/dl Normal (applies Uric Acid, [facility] [Mass/volume] in to non-numeric Serum Health Serum or Plasma results) System Anion gap in Serum 12.00 Normal (applies Anion Gap [facility] n[facility] or Plasma mmol/L to non-numeric Health results) System Glomerular 76.21 Normal (applies GFR [facility] filtration to non-numeric Health rate/1.73 sq results) System M.predicted [Volume Rate/Area] in Serum or Plasma by Creatinine-based formula (CKD-EPI) eGFR will provide clinicians with a more accurate indicator of renal function then the serum creatinine. The eGFR is automa tically calculated from an empiric formula (endorsed by the National [employer] ion) which incorporates age, sex, and race.Clinicians may notice surprisingly low GFR's with serum creatinine valueswithin normal range- particularly in elderly wo men (with low muscle mass).In the hospital setting, the eGFR should add an element of safety in drug dosing, in assessing the risk of IV contrast administration, and in assessing vascular risk.The NKF staging system is as follows:Normal: eGFR >90 with no kidney markersStage 1: eGFR >90 with kidney markers*Stage 2: eGFR 60- 89Stage 3: eGFR 30-59Stage 4: eGFR 15-29Stage 5: eGFR <15 (usually requir ing dialysis)*Markers include: Proteinuria, Hematuria, abnormal imaging-studies, or other blood or urine test abnormalities ID Date Data Source [id number] 02/02/2015 11:39:00 AM EDT [facility] System Name Value Range Interpretation Description Data Source(s ) Supporting Code Document(s ) Lipase 24 U/L Normal (applies to Lipase, Serum [facility] [Enzymatic non-numeric Health System activity/vo results) lume] in Serum or Plasma ID Date Data Source [id number] 02/02/2015 11:39:00 AM EDT [facility] System Name Value Range Interpretation Description Data Source(s ) Supporting Code Document(s ) LacticAc 0.74 Normal (applies to Lactic Acid, [facility] id,Plasm {mEq/L} non-numeric Plasma *[facility] a*[place] results) [place] ONLY* ERNONONL Y* ID Date Data Source [id number] 02/02/2015 11:39:00 AM EDT [facility] System Name Value Range Interpretation Description Data Sup porting Code Source(s) Document(s ) Amylase 56 {IU/L} Normal (applies to Amylase, Serum [facility] [Enzymatic non-numeric Health System activity/vo results) lume] in Serum or Plasma ID Date Data Source [id number] 02/02/2015 11:40:00 AM EDT [facility]oh[facility] System Name Value Range Interpretation Description Data Sup porting Code Source(s) Document(s ) Bacteria NO GROWTH Culture [facility] identified in Bacteria Blood Health Syst em Blood by [facility] culture ID Date Data Source [id number] 02/02/2015 11:40:00 AM EDT [facility] Name Value Range Interpretation Description Data Sup porting Code Source(s) Document(s ) Bacteria NO GROWTH Culture [facility] identified in Bacteria Blood Health Syst em Blood by [facility] culture ID Date Data Source [id number] 02/02/2015 02:09:00 PM EDT [facility] System Name Value Range Interpretation Description Data Sup porting Code Source(s) Document(s ) Potassium 3.9 Normal (applies Potassium, [facility] [Mass/volume] mmol/L to non-numeric Serum Health Syst em in Serum or results) Plasma ID Date Data Source [id number] 02/02/2015 04:15:00 PM EDT [facility] Name Value Range Interpretation Description Data Sup porting Code Source(s) Document(s ) Color YELLOW Normal (applies Color [facility] to non-numeric Health results) System Appearance of CLEAR Normal (applies Urine [facility] Urine to non-numeric Appearance Health results) System Specific gravity < =1.005 Normal (applies Urine Specific [facility] of Urine to non-numeric [place] [facility] results) System pH.. 6.5 Normal (applies pH.. [facility] {pH_units} to non-numeric Health results) System Glucose,UA NEGATIVE Normal (applies Glucose, UA [facility] to non-numeric Health results) System Protein NEGATIVE Normal (applies Protein [facility] [Mass/volume] in to non-numeric Health Serum or Plasma results) System BilirubinUrine NEGATIVE Normal (applies Bilirubin [facility] to non-numeric Urine Health results) System Urobilinogen 0.2 mg/dL Normal (applies Urobilinogen [facility] [Mass/volume] in to non-numeric UA Health Urine results) System Ketones NEGATIVE Normal (applies Ketones UA [facility] [Mass/volume] in to non-numeric Health Urine results) System Nitrate+Nitrite NEGATIVE Normal (applies Nitrite [facility] [Mass/volume] in to non-numeric Health Unspecified results) System specimen Leukocyte NEGATIVE Normal (applies Leukocyte [facility] esterase to non-numeric Esterase Health [Units/volume] results) Concentration System in Urine UrineBlood NEGATIVE Normal (applies Urine Blood [facility] to non-numeric Health results) System ID Date Data Source [id number] 02/03/2015 06:00:00 AM EDT [facility] System Name Value Range Interpretation Description Data Sup porting Code Source(s) Document(s ) Leukocytes 17.4 10 Above high normal WBC Count [facility] [#/volume] in Health Unspecified System specimen by Automated count Erythrocytes 3.75 10 Below low normal RBC Count [facility] [#/volume] in Health Blood by System Automated count Hemoglobin 10.0 Below low normal Hemoglobin [facility] [Mass/volume] in {gm/dL} Health Blood System Hematocrit 31.4 % Below low normal Hematocrit [facility] [Volume Health Fraction] of System Blood Erythrocyte mean 83.7 fl Normal (applies MCV [facility] corpuscular to non-numeric Health volume [Entitic results) System volume] by Automated count Erythrocyte mean 26.7 pg Normal (applies MCH [facility] corpuscular to non-numeric Health hemoglobin results) System [Entitic mass] by Automated count Erythrocyte mean 31.8 Below low normal M[facility] corpuscular {gm/dL} Health hemoglobin System concentration [Mass/volume] by Automated count Erythrocyte 16.7 % Above high normal RDW-CV [facility] distribution Health width [Entitic System volume] by Automated count Platelets 439 10 Above high normal Platelet [facility] [#/volume] in Count Health Plasma by System Automated count Platelet mean 10.5 fl Above high normal MPV [facility] volume [Entitic Health volume] in Blood System by Automated count Monocytes 0.9 10 Normal (applies Monocyte # [facility] [#/volume] in to non-numeric Health Blood by Manual results) System count Eosinophils 0.38 10 Above high normal Eosinophil # [facility] [#/volume] in Health Blood System Neutrophils 13.7 10 Above high normal Neutrophil # [facility] [#/volume] in Health Body fluid System Basophils 0.03 10 Normal (applies Basophil # [facility] [#/volume] in to non-numeric Health Blood by results) System Automated count Lymphocyte 2.3 10 Normal (applies Lymphocyte # [facility] percent to non-numeric Health differential results) System count (procedure) Neutrophils/100 78.9 % Normal (applies Neutrophil % [facility] n[facility] leukocytes in to non-numeric Health Blood by results) System Automated count Monocytes/100 5.2 % Below low normal Monocyte % [facility] leukocytes in Health Blood System Eosinophils/100 2.2 % Normal (applies Eosinophil % [facility] leukocytes in to non-numeric Health Unspecified results) System specimen Basophils/100 0.2 % Normal (applies Basophil % [facility] leukocytes in to non-numeric Health Unspecified results) System specimen by Manual count Lymphocytes 13.5 % Below low normal Lymphocyte % [facility] [#/volume] in Health Blood by System Automated count ID Date Data Source [id number] 02/04/2015 06:00:00 AM EDT [facility] Name Value Range Interpretation Description Data Sup porting Code Source(s) Document(s ) Leukocytes 12.1 10 Above high normal WBC Count [facility] [#/volume] in Health System Unspecified specimen by Automated count VERIFIED Erythrocytes 3.86 10 Normal (applies to RBC Count [facility] [#/volume] in Blood non-numeric System by Automated count results) Hemoglobin 10.3 Below low normal [facility] [Mass/volume] in {gm/dL} System Blood Hematocrit [Volume 32.4 % Below low normal Hematocrit [facility] Fraction] of Blood System Erythrocyte mean 83.9 fl Normal (applies to MCV [facility] corpuscular volume non-numeric System [Entitic volume] by results) Automated count Erythrocyte mean 26.7 pg Normal (applies to MCH [facility] corpuscular non-numeric System hemoglobin [Entitic results) mass] by Automated count Erythrocyte mean 31.8 Below low normal [facility] corpuscular {gm/dL} System hemoglobin concentration [Mass/volume] by Automated count Erythrocyte 16.4 % Above high normal RDW-CV [facility] System Health distribution width System [Entitic volume] by Automated count Platelets [#/volume] 456 10 Above high normal Platelet Co unt [facility] in Plasma by System Automated count Platelet mean volume 10.5 fl Above high normal [facility] [Entitic volume] in System Blood by Automated count Monocytes [#/volume] 0.9 10 Normal (applies to Monocyte # [facility] in Blood by Manual non-numeric System count results) Neutrophils 8.0 10 Normal (applies to Neutrophil # [facility] [#/volume] in Body non-numeric System fluid results) Eosinophils 0.45 10 Above high normal Eosinophil # [facility] [#/volume] in Blood System Basophils [#/volume] 0.02 10 Normal (applies to Basophil # [facility] in Blood by non-numeric System Automated count results) Lymphocyte percent 2.7 10 Normal (applies to Lymphocyte # [facility] differential count non-numeric System (procedure) results) Neutrophils/100 66.3 % Normal (applies to Neutrophil % [facility] leukocytes in Blood non-numeric System by Automated count results) Monocytes/100 7.4 % Normal (applies to Monocyte % [facility] leukocytes in Blood non-numeric System results) Basophils/100 0.2 % Normal (applies to Basophil % [facility] leukocytes in non-numeric System Unspecified specimen results) by Manual count Eosinophils/100 3.7 % Above high normal Eosinophil % [facility] leukocytes in System Unspecified specimen Lymphocytes 22.4 % Normal (applies to Lymphocyte % [facility] [#/volume] in Blood non-numeric System by Automated count results) ID Date Data Source [id number] 02/05/2015 06:00:00 AM EDT [facility] Name Value Range Interpretation Description Data Sup porting Code Source(s) Document(s ) Leukocytes 12.9 10 Above high normal WBC Count [facility] [#/volume] in Health Unspecified System specimen by Automated count Erythrocytes 3.88 10 Normal (applies RBC Count [facility] [#/volume] in to non-numeric Health Blood by results) System Automated count Hemoglobin 10.3 Below low normal Hemoglobin [facility] [Mass/volume] in {gm/dL} Health Blood System Hematocrit 32.5 % Below low normal Hematocrit [facility] [Volume Health Fraction] of System Blood Erythrocyte mean 83.8 fl Normal (applies MCV [facility] corpuscular to non-numeric Health volume [Entitic results) System volume] by Automated count Erythrocyte mean 26.5 pg Normal (applies [facility] corpuscular to non-numeric Health hemoglobin results) System [Entitic mass] by Automated count Erythrocyte mean 31.7 Below low normal [facility] corpuscular {gm/dL} Health hemoglobin System concentration [Mass/volume] by Automated count Erythrocyte 16.3 % Above high normal RDW-CV [facility] width [Entitic System volume] by Automated count Platelets 508 10 Above high normal Platelet [facility] [#/volume] in Count Health Plasma by System Automated count Platelet mean 10.6 fl Above high normal MPV [facility] [[facility] volume] in Blood System by Automated count Monocytes 1.0 10 Above high normal Monocyte # [facility] [#/volume] in Health Blood by Manual System count Eosinophils 0.52 10 Above high normal Eosinophil # [facility] [#/volume] in Health Blood System Neutrophils 8.3 10 Above high normal Neutrophil # [facility] [#/volume] in Health Body fluid System Basophils 0.03 10 Normal (applies Basophil # [facility] [#/volume] in to non-numeric Health Blood by results) System Automated count Lymphocyte 3.0 10 Normal (applies Lymphocyte # [facility] percent to non-numeric Health differential results) System count (procedure) Neutrophils/100 65.0 % Normal (applies Neutrophil % [facility] leukocytes in to non-numeric Health Blood by results) System Automated count Monocytes/100 7.5 % Normal (applies Monocyte % [facility] leukocytes in to non-numeric [facility] Blood results) System Eosinophils/100 4.0 % Above high normal Eosinophil % [facility] in [facility] Unspecified System specimen Basophils/100 0.2 % Normal (applies Basophil % [facility] leukocytes in to non-numeric Health Unspecified results) System specimen by Manual count Lymphocytes 23.3 % Normal (applies Lymphocyte % [facility] [#/volume] in to non-numeric Health Blood by results) System Automated count ID Date Data Source [id number] 02/05/2015 07:33:00 PM EDT [facility] Name Value Range Interpretation Description Data Sup porting Code Source(s) Document(s ) Clostridium Negative- No Normal (applies Clostridium [facility] toxigenic C. to non-numeric [facility] toxin A+B difficle results) lecular System [Presence] in detected. Assay Stool by Method:Loop-Med Cytotoxin iated tissue Amplification culture assay (LAMP) ID Date Data Source [id number] 02/06/2015 06:00:00 AM EDT [facility] Name Value Range Interpretation Description Data Sup porting Code Source(s) Document(s ) Leukocytes 16.8 10 Above high normal WBC Count [facility] [#/volume] in Health Unspecified System specimen by Automated count Erythrocytes 4.42 10 Normal (applies RBC Count [facility] [#/volume] in to non-numeric Health Blood by results) System Automated count Hemoglobin 11.8 Below low normal Hemoglobin [facility] [Mass/volume] in {gm/dL} Health Blood System Hematocrit 36.7 % Normal (applies Hematocrit [facility] [Volume to non-numeric Health Fraction] of results) System Blood Erythrocyte mean 83.0 fl Normal (applies MCV [facility] corpuscular to non-numeric Health volume [Entitic results) System volume] by Automated count Erythrocyte mean 26.7 pg Normal (applies [facility] corpuscular to non-numeric Health hemoglobin results) System [Entitic mass] by Automated count Erythrocyte mean 32.2 Below low normal [facility] corpuscular {gm/dL} Health hemoglobin System concentration [Mass/volume] by Automated count Erythrocyte 16.2 % Above high normal RDW-CV [facility] distribution [facility] width [Entitic System volume] by Automated count Platelets 583 10 Above high normal Platelet [facility] [#/volume] in Count Health Plasma by System Automated count Platelet mean 10.6 fl Above high normal MPV [facility] volume [[facility] volume] in Blood System by Automated count Monocytes 0.9 10 Normal (applies Monocyte # [facility] [#/volume] in to non-numeric Health Blood by Manual results) System count Eosinophils 0.35 10 Above high normal Eosinophil # [facility] [#/volume] in Health Blood System Neutrophils 12.5 10 Above high normal Neutrophil # [facility] [#/volume] in Health Body fluid System Basophils 0.02 10 Normal (applies Basophil # [facility] [#/volume] in to non-numeric Health Blood by results) System Automated count Lymphocyte 3.1 10 Normal (applies Lymphocyte # [facility] percent to non-numeric Health differential results) System count (procedure) Neutrophils/100 74.4 % Normal (applies Neutrophil % [facility] leukocytes in to non-numeric Health Blood by results) System Automated count Monocytes/100 5.2 % Below low normal Monocyte % [facility] leukocytes in [facility] Blood System Eosinophils/100 2.1 % Normal (applies Eosinophil % [facility] leukocytes in to non-numeric Health Unspecified results) System specimen Basophils/100 0.1 % Normal (applies Basophil % [facility] leukocytes in to non-numeric [facility] Unspecified results) System specimen by Manual count Lymphocytes 18.2 % Below low normal Lymphocyte % [facility] [#/volume] in [facility] Blood by System Automated count ID Date Data Source [id number] 02/06/2015 06:00:00 AM EDT [facility] Name Value Range Interpretation Description Data Sup porting Code Source(s) Document(s ) Sodium 138 Normal (applies Sodium, Serum [facility] [Moles/volume] in mmol/L to non-numeric Health Serum or Plasma results) System Potassium 4.5 Normal (applies Potassium, [facility] [Mass/volume] in mmol/L to non-numeric Serum Health Serum or Plasma results) System Chloride 102 Normal (applies Chloride, [facility] [Moles/volume] in mmol/L to non-numeric Serum Health Serum or Plasma results) System Carbon dioxide, 22.0 Normal (applies CO2, Serum [facility] total mmol/L to non-numeric Health [Moles/volume] in results) System Serum or Plasma TotalProtein 7.1 Normal (applies Total Protein [facility] mg/dl to non-numeric Health results) System Glucose 94 Normal (applies Glucose, [facility] [Mass/volume] in mg/dL to non-numeric Serum Health Serum or Plasma results) System Urea nitrogen 7 mg/dl Normal (applies Blood Urea [facility] [Mass/volume] in to non-numeric Nitrogen, Health Serum or Plasma results) Serum System Creatinine 0.68 Below low normal Creatinine, [facility] [Mass/volume] in mg/dl Serum Health Serum or Plasma System Alkaline 168 Above high Alkaline [facility] phosphatase {IU/L} normal Phosphatase, Health isoenzymes Serum System [Enzymatic activity/volume] in Serum or Plasma by Heat stability Bilirubin.total 0.3 Normal (applies Bilirubin, [facility] [Mass/volume] in mg/dl to non-numeric Serum Total Health Serum or Plasma results) System DirectBilirubin 0.1 Normal (applies Direct [facility] mg/dl to non-numeric Bilirubin Health results) System Aspartate 10 Normal (applies Aspartate [facility] aminotransferase {IU/L} to non-numeric Transaminase, Heal th [Enzymatic results) Serum System activity/volume] in Serum or Plasma by With P-5'-P Albumin 3.6 Below low normal Albumin, [facility] [Mass/volume] in {gm/dl} Serum Health Serum or Plasma System I.Phosphorus 3.6 Normal (applies I. Phosphorus [facility] mg/dl to non-numeric Health results) System Alanine 17 Normal (applies Alanine [facility] aminotransferase {IU/L} to non-numeric Aminotransfer Heal th [Enzymatic results) ase, Serum System activity/volume] in Serum or Plasma Calcium 9.6 Normal (applies Calcium, [facility] [Mass/volume] in mg/dl to non-numeric Total Serum Health Serum or Plasma results) System A/GRatio 1.03 Normal (applies A/G Ratio [facility] to non-numeric Health results) System Urate 3.1 Normal (applies Uric Acid, [facility] [Mass/volume] in mg/dl to non-numeric Serum Health Serum or Plasma results) System Anion gap in Serum 14.00 Above high Anion Gap [facility] or Plasma mmol/L normal Health System Glomerular > 90 Normal (applies GFR [facility] filtration to non-numeric Health rate/1.73 sq results) System M.predicted [Volume Rate/Area] in Serum or Plasma by Creatinine-based formula (CKD-EPI) eGFR will provide clinicians with a more accurate indicator of renal function then the serum creatinine. The eGFR is automa tically calculated from an empiric formula (endorsed by the [employer]) which incorporates age, sex, and race.Clinicians may notice surprisingly low GFR's with serum creatinine valueswithin normal range- particularly in elderly wo men (with low muscle mass).In the hospital setting, the eGFR should add an element of safety in drug dosing, in assessing the risk of IV contrast administration, and in assessing vascular risk.The NKF staging system is as follows:Normal: eGFR >90 with no kidney markersStage 1: eGFR >90 with kidney markers*Stage 2: eGFR 60- 89Stage 3: eGFR 30-59Stage 4: eGFR 15-29Stage 5: eGFR <15 (usually requir ing dialysis)*Markers include: Proteinuria, Hematuria, abnormal imaging-studies, or other blood or urine test abnormalities ID Date Data Source [id number] 02/07/2015 06:00:00 AM EDT [facility] Name Value Range Interpretation Description Data Sup porting Code Source(s) Document(s ) Leukocytes 14.0 10 Above high normal WBC Count [facility] [#/volume] in Health Unspecified System specimen by Automated count Erythrocytes 3.81 10 Normal (applies RBC Count [facility] [#/volume] in to non-numeric Health Blood by results) System Automated count Hemoglobin 10.2 Below low normal Hemoglobin [facility] [Mass/volume] in {gm/dL} Health Blood System Hematocrit 31.8 % Below low normal Hematocrit [facility] [Volume Health Fraction] of System Blood Erythrocyte mean 83.5 fl Normal (applies MCV [facility] corpuscular to non-numeric Health volume [Entitic results) System volume] by Automated count Erythrocyte mean 26.8 pg Normal (applies [facility] corpuscular to non-numeric Health hemoglobin results) System [Entitic mass] by Automated count Erythrocyte mean 32.1 Below low normal [facility] corpuscular {gm/dL} Health hemoglobin System concentration [Mass/volume] by Automated count Erythrocyte 16.2 % Above high normal RDW-CV [facility] distribution Health width [Entitic System volume] by Automated count Platelets 508 10 Above high normal Platelet [facility] [#/volume] in Count Health Plasma by System Automated count Platelet mean 10.3 fl Normal (applies MPV [facility] volume [Entitic to non-numeric Health volume] in Blood results) System by Automated count Monocytes 0.7 10 Normal (applies Monocyte # [facility] [#/volume] in to non-numeric Health Blood by Manual results) System count Eosinophils 0.46 10 Above high normal Eosinophil # [facility] [#/volume] in Health Blood System Neutrophils 9.6 10 Above high normal Neutrophil # [facility] [#/volume] in Health Body fluid System Basophils 0.03 10 Normal (applies Basophil # [facility] [#/volume] in to non-numeric Health Blood by results) System Automated count Lymphocyte 3.2 10 Normal (applies Lymphocyte # [facility] percent to non-numeric Health differential results) System count (procedure) Neutrophils/100 68.5 % Normal (applies Neutrophil % [facility] leukocytes in to non-numeric Health Blood by results) System Automated count Monocytes/100 4.9 % Below low normal Monocyte % [facility] leukocytes in [facility] Blood System Eosinophils/100 3.3 % Above high normal Eosinophil % [facility] leukocytes in [facility] Unspecified System specimen Basophils/100 0.2 % Normal (applies Basophil % [facility] leukocytes in to non-numeric Health Unspecified results) System specimen by Manual count Lymphocytes 23.1 % Normal (applies Lymphocyte % [facility] [#/volume] in to non-numeric Health Blood by results) System Automated count ID Date Data Source [id number] 02/07/2015 06:00:00 AM EDT [facility] Name Value Range Interpretation Description Data Sup porting Code Source(s) Document(s ) Sodium 138 Normal (applies Sodium, Serum [facility] [Moles/volume] in mmol/L to non-numeric Health Serum or Plasma results) System Potassium 4.2 Normal (applies Potassium, [facility] [Mass/volume] in mmol/L to non-numeric Serum Health Serum or Plasma results) System Chloride 102 Normal (applies Chloride, [facility] [Moles/volume] in mmol/L to non-numeric Serum Health Serum or Plasma results) System Carbon dioxide, 23.0 Normal (applies CO2, Serum [facility] total mmol/L to non-numeric Health [Moles/volume] in results) System Serum or Plasma TotalProtein 6.3 Normal (applies Total Protein [facility] mg/dl to non-numeric Health results) System Glucose 69 Normal (applies Glucose, [facility] [Mass/volume] in mg/dL to non-numeric Serum Health Serum or Plasma results) System Urea nitrogen 10 Normal (applies Blood Urea [facility] [Mass/volume] in mg/dl to non-numeric Nitrogen, Health Serum or Plasma results) Serum System Creatinine 0.67 Below low normal Creatinine, [facility] [Mass/volume] in mg/dl Serum Health Serum or Plasma System Alkaline 136 Above high Alkaline [facility] phosphatase {IU/L} normal Phosphatase, Health isoenzymes Serum System [Enzymatic activity/volume] in Serum or Plasma by Heat stability Bilirubin.total 0.2 Normal (applies Bilirubin, [facility] [Mass/volume] in mg/dl to non-numeric Serum Total Health Serum or Plasma results) System DirectBilirubin 0.1 Normal (applies Direct [facility] mg/dl to non-numeric Bilirubin Health results) System Aspartate 11 Normal (applies Aspartate [facility] aminotransferase {IU/L} to non-numeric Transaminase, Heal th [Enzymatic results) Serum System activity/volume] in Serum or Plasma by With P-5'-P Albumin 3.2 Below low normal Albumin, [facility] [Mass/volume] in {gm/dl} Serum Health Serum or Plasma System I.Phosphorus 3.2 Normal (applies I. Phosphorus [facility] mg/dl to non-numeric Health results) System Alanine 13 Normal (applies Alanine [facility] aminotransferase {IU/L} to non-numeric Aminotransfer [facility]al th [Enzymatic results) ase, Serum System activity/volume] in Serum or Plasma Calcium 8.9 Normal (applies Calcium, [facility] [Mass/volume] in mg/dl to non-numeric Total Serum Health Serum or Plasma results) System A/GRatio 1.03 Normal (applies A/G Ratio [facility] to non-numeric Health results) System Urate 4.5 Normal (applies Uric Acid, [facility] [Mass/volume] in mg/dl to non-numeric Serum Health Serum or Plasma results) System Anion gap in Serum 13.00 Above high Anion Gap [facility] or Plasma mmol/L normal Health System Glomerular > 90 Normal (applies GFR [facility] filtration to non-numeric Health rate/1.73 sq results) System M.predicted [Volume Rate/Area] in Serum or Plasma by Creatinine-based formula (CKD-EPI) eGFR will provide clinicians with a more accurate indicator of renal function then the serum creatinine. The eGFR is automa tically calculated from an empiric formula (endorsed by the [employer]) which incorporates age, sex, and race.Clinicians may notice surprisingly low GFR's with serum creatinine valueswithin normal range- particularly in elderly wo men (with low muscle mass).In the hospital setting, the eGFR should add an element of safety in drug dosing, in assessing the risk of IV contrast administration, and in assessing vascular risk.The NKF staging system is as follows:Normal: eGFR >90 with no kidney markersStage 1: eGFR >90 with kidney markers*Stage 2: eGFR 60- 89Stage 3: eGFR 30-59Stage 4: eGFR 15-29Stage 5: eGFR <15 (usually requir ing dialysis)*Markers include: Proteinuria, Hematuria, abnormal imaging-studies, or other blood or urine test abnormalities ID Date Data Source [id number] 02/08/2015 06:00:00 AM EDT [facility] Name Value Range Interpretation Description Data Sup porting Code Source(s) Document(s ) Leukocytes 12.5 10 Above high normal WBC Count [facility] [#/volume] in Health Unspecified System specimen by Automated count Erythrocytes 3.94 10 Normal (applies RBC Count [facility] [#/volume] in to non-numeric Health Blood by results) System Automated count Hemoglobin 10.5 Below low normal Hemoglobin [facility] [Mass/volume] in {gm/dL} Health Blood System Hematocrit 32.7 % Below low normal Hematocrit [facility] [Volume Health Fraction] of System Blood Erythrocyte mean 83.0 fl Normal (applies MCV [facility] corpuscular to non-numeric Health volume [Entitic results) System volume] by Automated count Erythrocyte mean 26.6 pg Normal (applies [facility] corpuscular to non-numeric Health hemoglobin results) System [Entitic mass] by Automated count Erythrocyte mean 32.1 Below low normal [facility] corpuscular {gm/dL} Health hemoglobin System concentration [Mass/volume] by Automated count Erythrocyte 15.8 % Above high normal RDW-CV [facility] distribution Health width [Entitic System volume] by Automated count Platelets 507 10 Above high normal Platelet [facility] [#/volume] in Count Health Plasma by System Automated count Platelet mean 10.3 fl Normal (applies MPV [facility] volume [Entitic to non-numeric Health volume] in Blood results) System by Automated count Monocytes 0.5 10 Normal (applies Monocyte # [facility] [#/volume] in to non-numeric Health Blood by Manual results) System count Eosinophils 0.60 10 Above high normal Eosinophil # [facility] [#/volume] in Health Blood System Neutrophils 8.3 10 Above high normal Neutrophil # [facility] [#/volume] in Health Body fluid System Basophils 0.03 10 Normal (applies Basophil # [facility] [#/volume] in to non-numeric Health Blood by results) System Automated count Lymphocyte 3.0 10 Normal (applies Lymphocyte # [facility] percent to non-numeric Health differential results) System count (procedure) Neutrophils/100 66.3 % Normal (applies Neutrophil % [facility] leukocytes in to non-numeric Health Blood by results) System Automated count Monocytes/100 4.3 % Below low normal Monocyte % [facility] leukocytes in Health Blood System Eosinophils/100 4.8 % Above high normal Eosinophil % [facility] leukocytes in [facility] Unspecified System specimen Basophils/100 0.2 % Normal (applies Basophil % [facility] leukocytes in to non-numeric Health Unspecified results) System specimen by Manual count Lymphocytes 24.4 % Normal (applies Lymphocyte % [facility] [#/volume] in to non-numeric Health Blood by results) System Automated count ID Date Data Source [id number] 02/08/2015 06:00:00 AM EDT [facility] Name Value Range Interpretation Description Data Sup porting Code Source(s) Document(s ) Sodium 136 Below low normal Sodium, Serum [facility] [Moles/volume] in mmol/L Health Serum or Plasma System Potassium 4.1 Normal (applies Potassium, [facility] [Mass/volume] in mmol/L to non-numeric Serum Health Serum or Plasma results) System Chloride 99 Normal (applies Chloride, [facility] [Moles/volume] in mmol/L to non-numeric Serum Health Serum or Plasma results) System Carbon dioxide, 23.0 Normal (applies CO2, Serum [facility] total mmol/L to non-numeric Health [Moles/volume] in results) System Serum or Plasma TotalProtein 6.6 Normal (applies Total Protein [facility] mg/dl to non-numeric Health results) System Glucose 68 Normal (applies Glucose, [facility] [Mass/volume] in mg/dL to non-numeric Serum Health Serum or Plasma results) System Urea nitrogen 7 mg/dl Normal (applies Blood Urea [facility] [Mass/volume] in to non-numeric Nitrogen, Health Serum or Plasma results) Serum System Creatinine 0.68 Below low normal Creatinine, [facility] [Mass/volume] in mg/dl Serum Health Serum or Plasma System Alkaline 114 Normal (applies Alkaline [facility] phosphatase {IU/L} to non-numeric Phosphatase, [facility] isoenzymes results) Serum System [Enzymatic activity/volume] in Serum or Plasma by Heat stability Bilirubin.total 0.2 Normal (applies Bilirubin, [facility] [Mass/volume] in mg/dl to non-numeric Serum Total Health Serum or Plasma results) System DirectBilirubin 0.1 Normal (applies Direct [facility] mg/dl to non-numeric Bilirubin Health results) System Aspartate 12 Normal (applies Aspartate [facility] aminotransferase {IU/L} to non-numeric Transaminase, Heal th [Enzymatic results) Serum System activity/volume] in Serum or Plasma by With P-5'-P Albumin 3.4 Below low normal Albumin, [facility] [Mass/volume] in {gm/dl} Serum Health Serum or Plasma System I.Phosphorus 3.2 Normal (applies I. Phosphorus [facility] mg/dl to non-numeric Health results) System Alanine 12 Normal (applies Alanine [facility] aminotransferase {IU/L} to non-numeric Aminotransfer [facility]al th [Enzymatic results) ase, Serum System activity/volume] in Serum or Plasma Calcium 9.2 Normal (applies Calcium, [facility] [Mass/volume] in mg/dl to non-numeric Total Serum Health Serum or Plasma results) System A/GRatio 1.06 Normal (applies A/G Ratio [facility] to non-numeric Health results) System Urate 5.1 Normal (applies Uric Acid, [facility] [Mass/volume] in mg/dl to non-numeric Serum Health Serum or Plasma results) System Anion gap in Serum 14.00 Above high Anion Gap [facility] or Plasma mmol/L normal Health System Glomerular > 90 Normal (applies GFR [facility] filtration to non-numeric Health rate/1.73 sq results) System M.predicted [Volume Rate/Area] in Serum or Plasma by Creatinine-based formula (CKD-EPI) eGFR will provide clinicians with a more accurate indicator of renal function then the serum creatinine. The eGFR is automa tically calculated from an empiric formula (endorsed by the [employer]) which incorporates age, sex, and race.Clinicians may notice surprisingly low GFR's with serum creatinine valueswithin normal range- particularly in elderly wo men (with low muscle mass).In the hospital setting, the eGFR should add an element of safety in drug dosing, in assessing the risk of IV contrast administration, and in assessing vascular risk.The NKF staging system is as follows:Normal: eGFR >90 with no kidney markersStage 1: eGFR >90 with kidney markers*Stage 2: eGFR 60- 89Stage 3: eGFR 30-59Stage 4: eGFR 15-29Stage 5: eGFR <15 (usually requir ing dialysis)*Markers include: Proteinuria, Hematuria, abnormal imaging-studies, or other blood or urine test abnormalities ID Date Data Source [id number] 02/09/2015 06:00:00 AM EDT [facility] Name Value Range Interpretation Description Data Sup porting Code Source(s) Document(s ) Leukocytes 12.6 10 Above high normal WBC Count [facility] [#/volume] in Health Unspecified System specimen by Automated count Erythrocytes 3.94 10 Normal (applies RBC Count [facility] [#/volume] in to non-numeric Health Blood by results) System Automated count Hemoglobin 10.6 Below low normal Hemoglobin [facility] [Mass/volume] in {gm/dL} Health Blood System Hematocrit 32.9 % Below low normal Hematocrit [facility] [Volume Health Fraction] of System Blood Erythrocyte mean 83.5 fl Normal (applies MCV [facility] corpuscular to non-numeric Health volume [Entitic results) System volume] by Automated count Erythrocyte mean 26.9 pg Normal (applies [facility]CH [facility] corpuscular to non-numeric Health hemoglobin results) System [Entitic mass] by Automated count Erythrocyte mean 32.2 Below low normal [facility] corpuscular {gm/dL} Health hemoglobin System concentration [Mass/volume] by Automated count Erythrocyte 15.9 % Above high normal RDW-CV [facility] distribution Health width [Entitic System volume] by Automated count Platelets 491 10 Above high normal Platelet [facility] [#/volume] in Count Health Plasma by System Automated count Platelet mean 10.4 fl Normal (applies MPV [facility] volume [Entitic to non-numeric Health volume] in Blood results) System by Automated count Monocytes 0.9 10 Normal (applies Monocyte # [facility] [#/volume] in to non-numeric Health Blood by Manual results) System count Eosinophils 0.62 10 Above high normal Eosinophil # [facility] [#/volume] in Health Blood System Neutrophils 8.2 10 Above high normal Neutrophil # [facility] [#/volume] in Health Body fluid System Basophils 0.04 10 Normal (applies Basophil # [facility] [#/volume] in to non-numeric Health Blood by results) System Automated count Lymphocyte 2.9 10 Normal (applies Lymphocyte # [facility] percent to non-numeric Health differential results) System count (procedure) Neutrophils/100 64.9 % Normal (applies Neutrophil % Lopez nydia leukocytes in to non-numeric Health Blood by results) System Automated count Monocytes/100 7.1 % Normal (applies Monocyte % [facility] leukocytes in to non-numeric Health Blood results) System Eosinophils/100 4.9 % Above high normal Eosinophil % [facility] leukocytes in Health Unspecified System specimen Basophils/100 0.3 % Normal (applies Basophil % [facility] leukocytes in to non-numeric Health Unspecified results) System specimen by Manual count Lymphocytes 22.8 % Normal (applies Lymphocyte % [facility] [#/volume] in to non-numeric Health Blood by results) System Automated count ID Date Data Source [id number] 05/05/2019 07:29:00 PM EDT S - [facility] Right foot 3 viewsClinical history: Inju ry, painFindings:No evidence of fracture-dislocation. Articular surface s are intact. No lytic or blastic lesion.Impression:Normal study. Name Value Range Interpretation Code Description Data Sierra rce(s) Supporting Document(s ) ID Date Data Source [id number] 12/18/2018 11:09:15 AM EST [place] Y ([place] [id number] [facility]) Name Value Range Interpretation Description Data Source(s ) Supporting Code Document(s ) No Results No Results No Results YANDEL ([facility] Recorded For [facility]) ID Date Data Source [id number] 12/04/2018 11:54:17 AM EST [place] Y ([place] [id number] [facility]) Name Value Range Interpretation Description Data Source(s ) Supporting Code Document(s ) No Results No Results No Results YANDEL ([facility] Recorded For [facility]) Procedure Social History Code Duration Value Status Description Data Source(s ) Smoking 12/04/2018 Ex-smoker completed Ex-smoker YANDEL (Moun t 11:54:15 AM EST (finding) (finding) [facility]) Assertion Finding of completed Finding of YANDEL (Moun t activity of activity of daily [place] daily living living (finding) [facility] (finding) [facility]) Assertion Physical completed Physical handicap ALLA Y ([facility] handicap (finding) [place] [facility]) Assertion Caffeine user completed Caffeine user YANDEL ([facility] (finding) (finding) [facility]) Assertion Exercise completed Exercise history YANDEL ([facility] history finding finding (finding) Ve rnon (finding) [facility]) Assertion social history completed YANDEL ( [facility] unchanged [facility]) Assertion Finding completed Finding relating YANDEL ([facility] relating to to drug misuse [place] drug misuse behavior [facility] behavior (finding) [facility]) (finding) Assertion Smoker completed Smoker (finding) [place]QU[place]O ([facility] (finding) [facility]) Assertion Tobacco user completed Tobacco user [place]QU[place]O ( [facility] (finding) (finding) [facility]) Assertion Current drinker completed Current drinker JAM LECHUGA ([facility] of alcohol of alcohol [place] (finding) (finding) [facility]) Vital Signs ID Date Data Source UNK Name Value Range Interpretation Code Description Data Source(s) Body temperature 36.6 Jyoti 0 - 99.9 Normal (applies to 36.6 Jyoti [facility] non-numeric System results) Body temperature 97.9 [degF] 0 - 200 Normal (applies to 97.9 [degF ] [facility] non-numeric System results) Diastolic blood 72 mm[Hg] 0 - 999 Normal (applies to 72 mm[Hg] [facility] pressure non-numeric System results) Systolic blood 116 mm[Hg] 0 - 999 Normal (applies to 116 mm[Hg] [facility] non-numeric System results) Respiratory rate 17 0 - 999 Normal (applies to 17 [facility] non-numeric System results) Heart rate 70 0 - 999 Normal (applies to 70 [facility] non-numeric System results) Oxygen saturation 100 % 0 - 999 Normal (applies to 100 % [facility] in Arterial blood [email or web address] System by Pulse oximetry results) Body surface area 1.8 m2 1.8 m2 [facility] Derived from System formula Body mass index 37.9 kg/m2 37.9 kg/m2 [facility] (BMI) [Ratio] System Body weight 91.17 kg 91.17 kg [facility] alth System Body height 154.94 cm 154.94 cm [facility] System Body temperature 36.6 Jyoti 0 - 99.9 Normal (applies to 36.6 Jyoti [facility] non-numeric System results) Body temperature 97.9 [degF] 0 - 200 Normal (applies to 97.9 [degF ] [facility] non-numeric System results) Diastolic blood 77 mm[Hg] 0 - 999 Normal (applies to 77 mm[Hg] [facility] pressure non-numeric System results) Systolic blood 128 mm[Hg] 0 - 999 Normal (applies to 128 mm[Hg] [facility] pressure non-numeric System results) Respiratory rate 16 0 - 999 Normal (applies to 16 [facility] non-numeric System results) Heart rate 68 0 - 999 Normal (applies to 68 [facility] non-numeric System results) Deprecated Oxygen 99 % 0 - 999 Normal (applies to 99 % [facility] saturation in non-numeric System Capillary blood results) by Oximetry Body surface area 1.[address] [facility] Derived from System formula Body mass index 40.4 kg/m2 40.4 kg/m2 [facility] [email or web address] [facility] (BMI) [Ratio] System Body weight 97.06 kg 97.06 kg [facility] Measured System Body height 154.94 cm 154.94 cm [facility] System Body surface area 1.[address] [facility] Derived from System formula Body mass index 39.6 kg/m2 39.6 kg/m2 [facility] [email or web address] [facility] (BMI) [Ratio] System Body weight 95.07 kg 95.07 kg [facility] Measured System Body height 154.94 cm 154.94 cm [facility] System Body temperature 98.1 [degF] 0 - 200 Normal (applies to 98.1 [degF ] [facility] non-numeric System results) Body temperature 36.7 Jyoti 0 - 99.9 Normal (applies to 36.7 Jyoti [facility] non-numeric System results) Diastolic blood 87 mm[Hg] 0 - 999 Above high normal 87 mm[Hg] [facility] pressure System Diastolic blood 73 mm[Hg] 0 - 999 Normal (applies to 73 mm[Hg] [facility] [employer] non-numeric System results) Systolic blood 147 mm[Hg] 0 - 999 Above high normal 147 mm[Hg] [facility] pressure System Systolic blood 148 mm[Hg] 0 - 999 Above high normal 148 mm[Hg] [facility] [employer] System Respiratory rate 20 0 - 999 Above high normal 20 [facility] System Heart rate 100 0 - 999 Above high normal 100 [facility] System Body surface area 1.[address] [facility] Derived from System formula Body mass index 39.4 kg/m2 39.4 kg/m2 [facility] [email or web address] (BMI) [Ratio] System Body weight 94.8 kg 94.8 kg [facility] Measured System Body height 154.94 cm 154.94 cm [facility] System Body temperature 98 [degF] 0 - 200 Normal (applies to 98 [degF] [facility] non-numeric System results) Body temperature 36.6 Jyoti 0 - 99.9 Normal (applies to 36.6 Jyoti [facility] non-numeric System results) Diastolic blood 58 mm[Hg] 0 - 999 Below low normal 58 mm[Hg] [facility] pressure System Systolic blood 140 mm[Hg] 0 - 999 Above high normal 140 mm[Hg] [facility] pressure System Deprecated Oxygen 98 % 0 - 999 Normal (applies to 98 % [facility] saturation in non-numeric System Capillary blood results) by Oximetry Respiratory rate 17 0 - 999 Normal (applies to 17 [facility] non-numeric System results) Heart rate 102 0 - 999 Above high normal 102 [facility] Body surface area 1.[address] [facility] Derived from System formula Body mass index 39.4 kg/m2 39.4 kg/m2 [facility] (BMI) [Ratio] System Body weight 94.8 kg 94.8 kg [facility] Measured System Body height 154.94 cm 154.94 cm [facility] System Body temperature 98.4 [degF] 0 - 200 Normal (applies to 98.4 [degF ] [facility] non-numeric System results) Body temperature 36.8 Jyoti 0 - 99.9 Normal (applies to 36.8 Jyoti [facility] non-numeric System results) Diastolic blood 63 mm[Hg] 0 - 999 Below low normal 63 mm[Hg] [facility] pressure System Systolic blood 132 mm[Hg] 0 - 999 Normal (applies to 132 mm[Hg] [facility] pressure non-numeric System results) Respiratory rate 18 0 - 999 Above high normal 18 [facility] Heart rate 89 0 - 999 Normal (applies to 89 [facility] non-numeric System results) Body temperature 97.7 [degF] 0 - 200 Normal (applies to 97.7 [degF ] [facility] non-numeric System results) Body temperature 36.5 Jyoti 0 - 99.9 Normal (applies to 36.5 Jyoti [facility] Health non-numeric System results) Diastolic blood 82 mm[Hg] 0 - 999 Normal (applies to 82 mm[Hg] [facility] pressure non-numeric System results) Systolic blood 142 mm[Hg] 0 - 999 Above high normal 142 mm[Hg] [facility] pressure System Deprecated Oxygen 100 % 0 - 999 Normal (applies to 100 % [facility] saturation in non-numeric System Capillary blood results) by Oximetry Heart rate 88 0 - 999 Normal (applies to 88 [facility] results) Last menstrual [facility] period start date System Body surface area 1.[address] [facility] Derived from System formula Body mass index 39.1 kg/m2 39.1 kg/m2 [facility] (BMI) [Ratio] System Body weight 97.06 kg 97.06 kg [facility] Measured System Body height 157.48 cm 157.48 cm [facility] System Body temperature 97.9 [degF] 0 - 200 Normal (applies to 97.9 [degF ] [facility] non-numeric System results) Body temperature 36.6 Jyoti 0 - 99.9 Normal (applies to 36.6 Jyoti [facility] non-numeric System results) Diastolic blood 77 mm[Hg] 0 - 999 Normal (applies to 77 mm[Hg] [facility] pressure non-numeric System results) Systolic blood 139 mm[Hg] 0 - 999 Normal (applies to 139 mm[Hg] [facility] pressure non-numeric System results) Deprecated Oxygen 97 % 0 - 999 Normal (applies to 97 % [facility] saturation in non-numeric System Capillary blood results) by Oximetry Respiratory rate 17 0 - 999 Normal (applies to 17 [facility] non-numeric System results) Heart rate 78 0 - 999 Normal (applies to 78 [facility] [employer] non-numeric System results) Body temperature 98.8 [degF] 0 - 200 Normal (applies to 98.8 [degF ] [facility] non-numeric System results) Body temperature 37.1 Jyoti 0 - 99.9 Normal (applies to 37.1 Jyoti [facility] non-numeric System results) Diastolic blood 75 mm[Hg] 0 - 999 Normal (applies to 75 mm[Hg] [facility] pressure non-numeric System results) Systolic blood 116 mm[Hg] 0 - 999 Normal (applies to 116 mm[Hg] [facility] pressure non-numeric System results) Deprecated Oxygen 95 % 0 - 999 Normal (applies to 95 % [facility] Health saturation in non-numeric System Capillary blood results) by Oximetry Respiratory rate 16 0 - 999 Normal (applies to 16 [facility] Health non-numeric System results) Heart rate 93 0 - 999 Normal (applies to 93 [facility] iore Health non-numeric System results) Last menstrual [facility] Health period start date System Body surface area 1.7 m2 1.7 m2 [facility] Derived from System formula Body mass index 33 kg/m2 33 kg/m2 [facility] e Health (BMI) [Ratio] System Body weight 79.37 kg 79.37 kg [facility] alth Measured System Body height 154.94 cm 154.94 cm [facility] alth System PhenX - pain, 0 0 YANDEL ([facility] - type [facility]) Pt stated she is here for a CPE Body surface area Derived from 1.90 m2 1.90 m2 LUQU[place]O ([facility]) Pt stated she is here for a CPE Body mass index (BMI) 38.4 kg/m2 38.4 kg/m2 [facility] ([place] [[facility]] [facility]) Pt stated she is here for a CPE Body weight 203 [lb_av] 203 [lb_av] LUQUILLO ([facility]) Pt stated she is here for a CPE Body height 61 [in_us] 61 [in_us] YNADEL ([facility]) Pt stated she is here for a CPE Body temperature 98.4 [degF] 98.4 [degF] [facility] ([facility]) Pt stated she is here for a CPE Respiratory rate 18 /min 18 /min [place]QU[place]O ([facility]) Pt stated she is here for a CPE Heart rate 76 /min 76 /min LUQU[place]O ([facility]) Pt stated she is here for a CPE Diastolic blood pressure 73 mm[Hg] 73 mm[Hg] [place]QU[place]O ([facility]) Pt stated she is here for a CPE Systolic blood pressure 125 mm[Hg] 125 mm[Hg] Janak WHITFIELD ([facility]) Pt stated she is here for a CPE Patient Treatment Plan of Care Planned Activity Planned Date Details Description Data Source (s) medroxyprogesterone acetate 07/21/2019 [facility] 10 MG Oral Tablet 04:08:59 PM EDT System medroxyprogesterone acetate 07/14/2019 [facility] 10 MG Oral Tablet 03:20:38 PM EDT System POLYETHYLENE GLYCOL 3350 59 07/08/2019 [facility] MG/ML / Potassium Chloride 04:34:23 PM EDT System 0.01 MEQ/ML / Sodium Bicarbonate 0.02 MEQ/ML / Sodium Chloride 0.025 MEQ/ML / sodium sulfate 0.04 MEQ/ML Oral Solution medroxyprogesterone acetate 07/08/2019 [facility] 10 MG Oral Tablet [Provera] 03:39:58 PM EDT System medroxyprogesterone acetate 07/08/2019 [facility] 10 MG Oral Tablet [Provera] 03:39:58 PM EDT System medroxyprogesterone acetate 07/08/2019 [facility] 10 MG Oral Tablet [Provera] 03:39:58 PM EDT System Cyclobenzaprine hydrochloride 07/08/2019 [facility] 10 MG Oral Tablet 03:37:40 PM EDT System 8 HR Acetaminophen 650 MG 07/08/2019 [facility] Extended Release Oral Tablet 03:36:59 PM EDT System [Tylenol] medroxyprogesterone acetate 07/05/2019 [facility] 10 MG Oral Tablet [Provera] 02:54:42 PM EDT System medroxyprogesterone acetate 06/14/2019 [facility] 10 MG Oral Tablet [Provera] 04:02:27 PM EDT System Naproxen 375 MG Delayed 03/21/2019 [facility] Release Oral Tablet 12:57:02 PM EDT Syste m Methocarbamol 500 MG Oral 03/21/2019 [facility] Tablet 12:56:01 PM EDT System Naproxen 03/21/2019 [facility] 12:53:02 PM EDT System Methocarbamol 500 MG Oral 03/21/2019 [facility] Tablet 12:51:08 PM EDT System benzonatate 100 MG Oral 01/07/2019 [facility] Capsule 09:29:46 PM EST System Ibuprofen 800 MG Oral Tablet 01/07/2019 [facility] [Ibu] 09:29:31 PM EST System Oseltamivir 75 MG Oral 01/07/2019 [facility] Capsule 09:29:11 PM EST System Methocarbamol 500 MG [facility] 11:02:22 PM EDT System Naproxen 500 MG Oral Tablet 09/21/2018 [facility] 11:02:02 PM EDT System Metoclopramide 10 MG Oral [facility]04[facility] 01:40:22 PM EDT System Ranitidine 150 MG Oral Tablet 02/04/2018 [facility] 01:39:25 PM EDT System Amoxicillin 875 MG / 10/29/2016 [facility] Clavulanate 125 MG Oral 07:02:38 PM EST S ystem Tablet Ciprofloxacin 3 MG/ML / 10/29/2016 [facility] Dexamethasone 1 MG/ML Otic 07:01:49 PM EST System Suspension [Ciprodex] Cyclobenzaprine hydrochloride 09/17/2016 [facility] 10 MG Oral Tablet 06:13:55 PM EDT System Ibuprofen 600 MG Oral Tablet 09/17/2016 [facility] [Ibu] 06:13:32 PM EDT System POLYETHYLENE GLYCOL 3350 142 09/17/2016 [facility] MG/ML Oral Solution 02:18:00 PM EDT Syste m Naproxen 250 MG Oral Tablet 07/12/2016 [facility] 02:44:20 PM EDT System Ibuprofen 600 MG Oral Tablet 06/19/2016 [facility] [Ibu] 07:28:10 PM EDT System Amoxicillin 500 MG / 06/19/2016 [facility] Clavulanate 125 MG Oral 07:26:08 PM EDT S ystem Tablet Sulfamethoxazole 800 MG / 03/30/2016 [facility] Trimethoprim 160 MG Oral 04:53:12 PM EDT System Tablet Cephalexin 500 MG Oral 03/30/2016 [facility] Capsule 04:52:45 PM EDT System Loperamide Hydrochloride 2 MG 03/12/2016 [facility] Oral Tablet 04:08:18 PM EDT System Microgestin 1.5/30 oral 03/05/2016 [facility] tablet 02:47:36 PM EDT System moxifloxacin 400 MG Oral 04/02/2015 [facility] Tablet 12:55:22 PM EDT System Acetaminophen 325 MG / 04/02/2015 [facility] Oxycodone Hydrochloride 5 MG 12:00:00 AM EDT System Oral Tablet Ciprofloxacin 500 MG Oral 01/14/2015 [facility] Tablet 01:16:00 PM EST System POLYETHYLENE GLYCOL 3350 59 01/14/2015 [facility] MG/ML / Potassium Chloride 12:00:00 AM EST System 0.01 MEQ/ML / Sodium Bicarbonate 0.02 MEQ/ML / Sodium Chloride 0.025 MEQ/ML / sodium sulfate 0.04 MEQ/ML Oral Solution Acetaminophen 325 MG / 06/28/2014 [facility] Oxycodone Hydrochloride 5 MG 09:13:18 PM EDT System Oral Tablet Naproxen 500 MG Oral Tablet 06/26/2014 [facility] 10:09:55 PM EDT System Cyclobenzaprine hydrochloride 06/26/2014 [facility] 10 MG Oral Tablet 10:09:47 PM EDT System Naproxen 500 MG Oral Tablet 07/05/2013 [facility] 10:18:22 PM EDT System Aspirin 81 MG Delayed Release [facility] Oral Tablet [Aspir-Low] Syst em Aspirin 81 MG Oral Tablet [facility] System Multivitamin preparation [facility] System Ondansetron 4 MG [facility] Disintegrating Oral Tablet S ystem [Zofran] Motrin [facility] th System 12 HR Oxycodone Hydrochloride [facility] 10 MG Extended Release Oral System Tablet [Oxycontin] calcium carbonate-magnesium [facility] hydroxide 550 mg-125 mg oral System capsule
--- NOTE | 2020-08-11 14:02 | HP ---
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: Alzheimer's, CVA, Dementia, Migraine, Multiple Sclerosis, Peripheral Neuropathy, Parkinson's, Seizure, Syncope, TIA, Vertigo, Other Cardiovascular: No: AFIB, Aneurysm, Aortic Insufficiency, Aortic Stenosis, CAD, CHF, Deep Vein Thrombosis, HTN, Hyperlipdemia, SD, Mitral Insufficiency, Mitral Stenosis, Murmur, Pulmonary Hypertension, Other Pulmonary: No: Asthma, Bronchitis, Cancer, COPD, O2 Dependent, Pneumonia, P reviously Intubated, Pulmonary Embolus, Pulmonary Fibrosis, Sleep Apnea, Other Gastrointestinal: No: Ascites, Cancer, Constipation, Crohn's Disease, Diverticulitis, Diverticulosis, Esophageal Varices, Gastritis, GERD, GI Bleed, Hemorrhoids, Hiatal Hernia, Inflamatory Bowel Disease, Irritable Bowel Disease, Pancreatitis, Peptic Ulcer Disease, Ulcerative Colitis, Other Hepatobiliary: No: Cirrhosis, Cholelithiasis, Cholecystitis, Choledocholithiasis, Hepatitis A, Hepatitis B, Hepatitis C, Other Renal/: No: Renal Failure, Renal Inusuff, BPH, Cancer, Hematuria, Hemodialysis, Neurogenic Bladder, Renal Calculi, UTI, Other Reproductive: No: Ectopic , Endometriosis, Fibroids, PID, Polycystic Ovary Syndrome, Postmenopausal, Other Heme/Onc: No: Anemia, B12 Deficiency, Bleeding Disorder, Cancer, Current Chemotherapy, Current Radiation Therapy, Hemochromatosis, Hypercoaguable State, Myeloproliferative Synd, Sickle Cell Disease, Sickle Cell Trait, Thrombocytopenia, Other Infectious Disease: No: AIDS, C-Diff, Herpes Zoster, HIV, MRSA, STD's, Tuberculosis, VREF, Other Psych: No: Addictions, Anxiety, Bipolar, Depression, Panic, Psychosis, Schizophrenia, Other Musculoskeletal: No: Bursitis, Chronic low back pain, Hemiparesis, Hemiplegia, Osteoarthritis, Paraplegia, Other Rheumatology: No: Fibromyalgia, Gout, Lupus, Rheumatoid Arthritis, Sarcoidosis, Vasculitis, Other ENT: No: Allergic Rhinitis, Sinusitis, Other Endocrine: No: Page's Disease, Tower's Disease, Diabetes Insipidus, Diabetes Mellitus, Hyperparathyroidism, Hyperthyroidism, Hypothyroidism, Osteopenia, SIADH, Other Dermatology: No: Basal Cell, Cellulitis, Eczema, Melanoma, Psoriasis, Squamous Cell, Other - Past Surgical History Past Surgical History: No: None, AAA Repair, AICD, Amputation, Appendectomy, Arthrosocopy, AV Fistula/Graft, Bariatric Surgery, Breast Biopsy, Bypass, CABG, Carotid Endarterectomy, Cataract Removal, Cholecystectomy, Colectomy, Colonoscopy, Colostomy, Craniotomy, , Cystectomy, Hernia Repair, Hysterectomy, Ileal Conduit, Ileosotomy, Joint Replacement, Kidney Transplant, Laminectomy, Liver Transplant, Mastectomy, Nephrectomy, Oopherectomy, Orchiectomy, Permanent Pacemaker, Prostatectomy, Splenectomy, Stent, Thoracotomy, TURP, Tonsillectomy, Tubal Ligation, Upper Endoscopy, Valve Replacement, Vasectomy, Vein Stripping/Ligation Hx Myomectomy: No Hx Transabdominal Cerclage: No - Advance Directives Advance Directives: Yes: Living Will - Smoking History Smoking history: Never smoked Have you smoked in the past 12 months: No If you are a former smoker, when did you quit?: 8 yrs - Alcohol/Substance Use Hx Alcohol Use: No History of Substance Use: reports: None - Social History Usual Living Arrangement: Yes: With Significant Other Do you think of yourself as: Straight/Heterosexual ADL: Independent History of Recent Travel: No Home Medications - Allergies Allergies/Adverse Reactions: Allergies Allergy/AdvReac Type Severity Reaction Status Date / Time No Known Allergies Allergy Verified 08/11/20 12:36 - Home Medications Home Medications: Ambulatory Orders Aspirin 81 mg PO DAILY 08/10/20 Metformin HCl [Glucophage] 500 mg PO BID 08/10/20 Provera 2 PO 08/11/20 Family Medical History Family History: Denies Review of Systems - Review of Systems Constitutional: reports: No Symptoms Eyes: reports: No Symptoms HENT: reports: No Symptoms Neck: reports: No Symptoms Cardiovascular: reports: No Symptoms Respiratory: reports: No Symptoms Gastrointestinal: reports: No Symptoms Genitourinary: reports: No Symptoms Breasts: reports: No Symptoms Reported Musculoskeletal: reports: No Symptoms Integumentary: reports: No Symptoms Neurological: reports: No Symptoms Endocrine: reports: No Symptoms Hematology/Lymphatic: reports: No Symptoms Psychiatric: reports: No Symptoms Physical Exam - Maternity Vital Signs: Vital Signs Temperature 97.7 F 08/11/20 12:20 Pulse Rate 78 08/11/20 12:20 Respiratory Rate 12 08/11/20 12:20 Blood Pressure 129/80 08/11/20 12:20 O2 Sat by Pulse Oximetry (%) 98 08/11/20 12:20 Constitutional: Yes: Well Nourished, No Distress, Calm Eyes: Yes: WNL, Conjunctiva Clear, EOM Intact HENT: Yes: WNL, Atraumatic, Normocephalic Neck: Yes: WNL, Supple, Trachea Midline Cardiovascular: Yes: WNL, Regular Rate and Rhythm Lungs: Clear to auscultation Breast(s): Yes: WNL - Physical Exam Musculoskeletal: Yes: WNL Edema: Yes Integumentary: Yes: WNL Deep Tendon Reflex Grade: Normal +2 ...Motor Strength: WNL Psychiatric: Yes: WNL, Alert, Oriented Hemorrhage Risk Assessment - Risk Factors Medium Risk Factors: Yes: None High Risk Factors: Yes: None Risk Score: 1 Risk Level: Medium Risk Assessment/Plan for uterine ablation , d and c , hysteroscpy
[2020-08-11] MEDS ORDERED: PROPOFOL 20 ML ONE (15:14)
[2020-08-11] MEDS ORDERED: MIDAZOLAM HCL 2 MG/2 ML SINGLE DOSE VIAL ONE (15:14)
[2020-08-11] MEDS ORDERED: LIDOCAINE HCL/PF 2% SDV 5ML VIAL ONE (15:22)
[2020-08-11] MEDS ORDERED: DEXAMETHASONE SOD PHOSPHATE 4 MG/1 ML VIAL ONE (15:30)
[2020-08-11] MEDS ORDERED: KETOROLAC TROMETHAMINE 30 MG/1 ML VIAL ONE (16:18)
[2020-08-11] MEDS ORDERED: ONDANSETRON 4 MG/2 ML VIAL IVPUSH PRN (17:36)
[2020-08-11] MEDS ORDERED: oxyCODONE HCL 5 MG TABLET PO PRN ×2 (17:36→18:21)
[2020-08-11] MEDS ORDERED: LACTATED RINGERS SOLUTION 1,000 ML IV SCH ×2 (17:45→18:30)
[2020-08-11] MEDS ORDERED: ACETAMINOPHEN 325 MG TABLET (FP) PO PRN (18:21)
[2020-08-11] MEDS ORDERED: IBUPROFEN 400 MG TABLET (FP) PO PRN (18:21)
--- NOTE | 2020-08-11 18:29 | OP ---
Operative Note - Note: Operative Date: 08/11/20 Pre-Operative Diagnosis: menorrhagia Operation: d and c, uterine ablation , hysteroscopy Findings: no submucosa fibroid Post-Operative Diagnosis: Same as Pre-op Surgeon: Miguel Guzman Anesthesiologist/ROUGHER MACHINE OPERATOR: Mendy Viveros Anesthesia: General Estimated Blood Loss (mls): 2
[2020-08-11] MEDS ORDERED: oxyCODONE HCL 5 MG TABLET ONE (18:31)
[2020-08-11 20:01] VITALS: BP 123/60; PULSE 71; TEMP 97
--- NOTE | 2020-08-13 14:02 | OP ---
DATE OF OPERATION: 08/11/2020 PREOPERATIVE DIAGNOSIS: Menorrhagia. POSTOPERATIVE DIAGNOSIS: Menorrhagia. PROCDURE: Dilation and curettage, hysteroscopy and endometrial ablation. SURGEON: Michell Villafana MD ANESTHESIOLOGIST: Mendy Viveros MD ANESTHESIA: General anesthesia. BLOOD LOSS: About 2 mL. FINDINGS: No submucosal fibroid. INDICATION: This is a 55-year-old female patient with a history of colon cancer, status post chemotherapy. Ever since the chemotherapy patient has complained about menorrhagia on and off for almost a year. The patient does not have a large fibroid uterus, so patient has no significant reason why she has menorrhagia and an endometrial biopsy was done in the office which confirmed it was not a cancer. So, patient was taken to the hospital for D&C, hysteroscopy and endometrial ablation. DESCRIPTION OF PROCEDURE: So, patient was placed in the lithotomy position. After general anesthesia was obtained, the patient's abdomen and pelvis were prepped and draped in the usual sterile manner and patient was placed in the lithotomy position. The heavy speculum was placed in patient's vagina. Cervix was grasped with tenaculum and sounded and dilated and the D&C was performed and the specimen sent to Pathology. Then hysteroscopy and endometrial ablation was done at the same time. No submucosal fibroid was seen. Not any pathology was seen. Following hysteroscopy uterine ablation was performed and there was good hemostasis. No complication. Successfully finished and the patient tolerated the procedure well. Blood loss about 2 mL. The tenaculum was removed. The speculum was removed. Awakened from general anesthesia, transferred to recovery room in stable condition. MICHELL VILLAFANA MD [id number]
--- NOTE | 2020-08-15 13:28 | PATH ---
Surgical Pathology Report Patient Name: REG MOORE [facility]. Rec. #: [id number] /Age/Gender: 1965 (Age: 55) / F Account: [id number] Location: [facility] SURGICAL Taken: 08/11/2020 Received: 08/14/2020 Reported: 08/15/2020 Physicians: Miguel Guzman MD Specimen(s) Received ENDOMETRIAL CURETTINGS Clinical History Menorrhagia Final Diagnosis ENDOMETRIAL CURETTINGS, DILATION AND CURETTAGE: FRAGMENTS OF INACTIVE ENDOMETRIUM WITH DECIDUALIZED STROMA AND FOCAL INFLAMMATORY INFILTRATE, CONSISTENT WITH EXOGENOUS HORMONE EFFECT, FIBROMUSCULAR TISSUE, AND SCANT BENIGN CERVICAL TISSUE. Electronically Signed Katherine Kilpatrick M.D. Gross Description Received in formalin labeled "endometrial curettings," is a 2.3 x 1.5 x 0.3 cm aggregate of austin-brown soft tissue fragments. The formalin is filtered and the specimen is entirely submitted in one cassette. /08/14/2020 saudi/08/14/2020
== END 2020-08-11 20:25 | disposition home or self-care (01) ==
LOC: JASU-SURG 05:17
PROVIDERS: ATTEND Obstetrics & Gynecology
PROC: 0U5B8ZZ Destruction of Endometrium, Via Natural or Artificial Opening Endoscopic (ICD-10-PCS; principal; 2020-08-11 14:00)
PROC: 0UDB7ZX Extraction of Endometrium, Via Natural or Artificial Opening, Diagnostic (ICD-10-PCS; 2020-08-11 14:00)
DX: N92.0 Excessive and frequent menstruation with regular cycle (principal); E66.01 Morbid (severe) obesity due to excess calories; Z79.84 Long term (current) use of oral hypoglycemic drugs; E11.9 Type 2 diabetes mellitus without complications
CPT/HCPCS: 84703; 86850; 86900; 86901; 88305-TC; 94760